=== PATIENT | female | born 1990 | race Caucasian/White ===

== ENCOUNTER 2022-09-27 09:57 | Outpatient (OUT) | payer BC, SELFPAY ==
[2022-09-27 10:17] LABS: Basophils Percent Auto 0.4 % (0.2-2.0); Eosinophils Absolute Auto 0.3 10^3/uL (0.0-0.7); Eosinophils Percent Auto 3.6 % (0.9-7.0); Hematocrit 40.8 % (36.0-48.0); Hemoglobin 13.3 g/dL (12.0-16.0); Immature Granulocytes Abs Auto 0.05 10^3/uL (0.00-0.03); Immature Granulocytes Pct Auto 0.5 % (0.0-0.5); Lymphocytes Absolute Auto 2.6 10^3/uL (1.2-3.8); Lymphocytes Percent Auto 27.5 % (20.5-60.0); Mean Corpuscular HGB Conc 32.6 g/dL (29.9-35.2); Mean Corpuscular Hemoglobin 27.9 pg (26.7-34.0); Mean Corpuscular Volume 85.5 fL (81.0-99.0); Mean Platelet Volume 9.5 fL (9.5-13.5); Monocytes Absolute Auto 0.8 10^3/uL (0.3-0.8); Monocytes Percent Auto 8.1 % (1.7-12.0); Neutrophils Absolute Auto 5.7 10^3/uL (1.4-6.5); Neutrophils Percent Auto 59.9 % (43.0-75.0); Platelet Count 357 10^3/uL (150-450); Red Blood Count 4.77 10^6/uL (4.20-5.40); Red Cell Distribution Width 13.2 % (11.0-15.0); White Blood Count 9.5 10^3/uL (4.0-11.0)
[2022-09-27 10:25] LABS: Estimated Average Glucose 117 mg/dL; Glycohemoglobin A1C 5.7 % (4.5-6.2)
[2022-09-27 10:40] LABS: Anion Gap 12.3; Aspartate Amino Transferase 10 U/L (15-37); BUN Creatinine Ratio 16.9; Bilirubin Total 0.4 mg/dL (0.2-1.0); Carbon Dioxide 27.7 mmol/L (21.0-32.0); Chloride 102 mmol/L (98-107); Estimated GFR (African America >60 (>=60); Estimated GFR (Non-African Ame >60 (>=60); Glucose 95 mg/dL (74-106); Sodium 138 mmol/L (136-145)
[2022-09-27 10:41] LABS: Alanine Aminotransferase 23 U/L (14-59); Albumin Level 3.7 g/dL (3.4-5.0); Alkaline Phosphatase 113 U/L (46-116); Chol HDL Ratio 2.8; Cholesterol 199 mg/dL (<=200); Globulin 3.7 g/dL; HDL Cholesterol 70 mg/dL (40-60); Thyroid Stimulating Hormone 1.026 uIU/mL (0.358-3.740); Total Protein 7.4 g/dL (6.4-8.2); Triglycerides 64 mg/dL (<=150); VLDL CHOLESTEROL 12.8 mg/dL
== END 2022-09-27 09:58 | disposition home or self-care (01) ==
LOC: LAB 09:57
PROVIDERS: PCP Family Medicine; Visit Provider Family Medicine
DX: Z00.00 Encounter for general adult medical examination without abnormal findings (principal)
CPT/HCPCS: 36415; 80053; 80061; 83036; 84443; 85025

== ENCOUNTER 2022-12-27 08:00 | Outpatient (OUT) | payer BC, SELFPAY ==
[2022-12-27] MEDS: COVID VAC 23-24(12UP)MODERNA/PF 50 MCG/0.5 ML VIAL IM (14:30)
== END 2022-12-27 08:01 | disposition home or self-care (01) ==
LOC: VACCLI 02-15 09:20
PROVIDERS: PCP Family Medicine; Visit Provider Family Medicine
DX: Z23 Encounter for immunization (principal)
CPT/HCPCS: 90471; 91322

== ENCOUNTER 2023-02-03 23:36 | Emergency (ER) | payer BC, SELFPAY ==
[2023-02-03 23:41] VITALS: BP 126/91; PULSE 105; RESP 16; TEMP 36.6; O2SAT 95; BMI 40.5
[2023-02-03 23:54] LABS: Clarity Urine CLEAR (CLEAR); Color Urine DK. ORANGE (YELLOW); Specific Gravity Urine >=1.030 (1.005-1.025)
[2023-02-03 23:59] LABS: Bilirubin Urine COLOR INTERFERENCE (NEGATIVE); Blood Urine COLOR INTERFERENCE (NEGATIVE); Glucose Urine UA COLOR INTERFERENCE mg/dL (NEGATIVE); Ketones Urine COLOR INTERFERENCE mg/dL (NEGATIVE); Leukocyte Esterase Urine COLOR INTERFERENCE (NEGATIVE); Nitrite Urine COLOR INTERFERENCE (NEGATIVE); Protein Urine COLOR INTERFERENCE mg/dL (NEG/TRACE); Urine Microscopic Indicated YES; Urobilinogen Urine COLOR INTERFERENCE EU/dL (0.2-1.0); pH Urine COLOR INTERFERENCE (5.0-9.0)
[2023-02-04 00:02] LABS: Bacteria Urine MODERATE #/HPF (NONE SEEN); Cast Seen? NONE SEEN #/LPF (NONE SEEN); Crystals Seen? None Seen #/HPF (None Seen); Mucus Urine NONE SEEN (NONE SEEN); RBC Urine >100 #/HPF (0-2); Squamous Epithelial Cell Urine FEW #/LPF (NONE/RARE)
[2023-02-04 00:03] LABS: Urine Culture Indicated YES
--- NOTE | 2023-02-04 00:22 | ED_ITS ---
HPI - Female Genitourinary General Chief complaint: Urogenital-Female Stated complaint: BLOOD IN URINE Time Seen by Provider: 02/03/23 23:59 Source: patient Mode of arrival: walk-in Limitations: no limitations History of Present Illness HPI Narrative: patient presents complaining of suprapubic pressure pain that started today. has dysuria and urgency. Past history of UTI for which she states she takes AZO. Took AZO today along with motrin and still has discomfort. No fever , nausea or flank pain. MD elicited complaint: Reports dysuria Related Data Allergies Allergy/AdvReac Type Severity Reaction Status Date / Time aspirin Allergy Severe Swelling Verified 02/03/23 23:47 of Lip/Tongue/Throat Review of Systems ROS Status of ROS 10 or more systems reviewed and unremarkable except as noted in history and below Exam Constitutional Vital Signs, click to edit/add: Last Vital Signs Temp 97.9 F 02/03/23 23:41 Pulse 105 H 02/03/23 23:41 Resp 16 02/03/23 23:41 BP 126/91 02/03/23 23:41 Pulse Ox 95 02/03/23 23:41 O2 Del Method Room Air 02/03/23 23:41 Common normals: no apparent distress, oriented x3, no limitations, healthy appearing, alert and well nourished [facility] Common normals: normocephalic and head/scalp atraumatic Respiratory Common normals: normal respiratory effort, no retractions, no use of accessory muscles and clear to auscultation bilaterally Cardio Common normals: regular rate, regular rhythm, S1 normal heart sound and S2 normal heart sound GI Other: suprapubic tenderness. no guarding Extremity Common normals: normal to inspection and full ROM Neuro Common normals: oriented x3, CN's II-XII intact bilaterally, moves all extremities, no focal motor deficits and no sensory deficits noted Psych Appearance: grossly normal Course Vital Signs Vital signs: Vital Signs Temperature 97.9 F 02/03/23 23:41 Pulse Rate 105 H 02/03/23 23:41 Respiratory Rate 16 02/03/23 23:41 Blood Pressure 126/91 02/03/23 23:41 Pulse Oximetry 95 02/03/23 23:41 Oxygen Delivery Method Room Air 02/03/23 23:41 Temperature 97.9 F 02/03/23 23:41 Pulse Rate 105 H 02/03/23 23:41 Respiratory Rate 16 02/03/23 23:41 Blood Pressure 126/91 02/03/23 23:41 Pulse Oximetry 95 02/03/23 23:41 Oxygen Delivery Method Room Air 02/03/23 23:41 MDM - Female Genitourinary MDM Narrative Medical decision making narrative: presents with symptoms of UTI manifested by urgency, dysuria. Urine dip results distorted as she has been taking AZO. Urine cx ordered. She is afebrile. Given dose of bactrim ds and norco for pain. Discharged home to follow up with her family doctor Lab Data Labs: Lab Results 02/03/23 Range/Units 22:45 Urine Color Dk. orange (YELLOW) Urine Clarity Clear (CLEAR) Urine pH Color interference A (5.0-9.0) Ur Specific [place] >=1.030 A (1.005-1.025) Urine Protein Color interference A (NEG/TRACE) mg/dL Urine Glucose (UA) Color interference A (NEGATIVE) mg/dL Urine Ketones Color interference A (NEGATIVE) mg/dL Urine Occult Blood Color interference A (NEGATIVE) Urine Nitrite Color interference A (NEGATIVE) Urine Bilirubin Color interference A (NEGATIVE) Urine Urobilinogen Color interference A (0.2-1.0) EU/dL Ur Leukocyte Esterase Color interference A (NEGATIVE) Urine RBC >100 A (0-2) #/HPF Urine WBC 5-10 A (NONE SEEN) #/HPF Ur Squamous Epith Cells Few A (NONE/RARE) #/LPF Urine Crystals None seen (None Seen) #/HPF Urine Bacteria Moderate A (NONE SEEN) #/HPF Urine Casts None seen (NONE SEEN) #/LPF Urine Mucus None seen (NONE SEEN) Ur Culture Indicated? Yes Discharge Plan Discharge Chief Complaint: Urogenital-Female Clinical Impression: Urinary tract infection Patient Disposition: Home, Self-Care Instructions: Urinary Tract Infection in Older Adults (ED) Stand Alone Forms: Portal Instructions Referrals: TOM WHYTE [Primary Care Provider] - 1 week
[2023-02-04] MEDS: SULFAMETHOXAZOLE/TRIMETHOPRIM 800-160 MG TABLET 1 TAB PO (00:35)
[2023-02-04] MEDS: HYDROCODONE/ACET 5-325 MG TABLET 2 TAB PO (00:35)
== END 2023-02-04 00:42 | disposition home or self-care (01) ==
PROVIDERS: Emergency Provider Internal Medicine; PCP Family Medicine
DX: N39.0 Urinary tract infection, site not specified (principal); Z87.440 Personal history of urinary (tract) infections
CPT/HCPCS: 81001; 87086; 99283

== ENCOUNTER 2023-11-01 18:13 | Emergency (ER) | payer SELFPAY ==
[2023-11-01 18:16] VITALS: BP 152/94; PULSE 104; TEMP 36.8; O2SAT 94; BMI 42.8
--- OUTSIDE RECORDS SUMMARY | 2023-11-01 18:21 | XMS_ITS | CCD ---
Author Organization [facility] Care Team Providers Care Motor Teacher Name Role Phone Traci Man Primary Care Physician PJ BAE Consulting Unavailable ROSS, [facility] Primary Care Unavailable PJ BAE Attending Unavailable PJ BAE Admitting Unavailable KARASIK ., DR TO Consulting Unavailabl e ROSS, [facility] Care Unavailable KARASIK ., DR TO Attending Unavailabl e KARASIK ., DR TO Admitting Unavailabl e REBECCA, DOMINGO Consulting Unavailable TOM VASQUES Consulting Unavailable KARASIK ., DR TO [facility]ing [facility] KARASIK ., DR TO Attending Unavailabl e KARASIK ., DR TO Admitting Unavailabl e KARASIK ., DR TO Consulting [facility] Un[facility] KARASIK ., DR TO Attending Unavailabl e KARASIK ., DR TO Admitting Unavailabl e NELSON, GRETCHEN Consulting Unavailable SARAVANAN, DR TIFFANIE Kendall Consulting Unavailable NIA MORROW Attending Unavailable NIA MORROW Admitting Unavailable PATO, [facility] Primary Care Unavailable NIA MORROW Consulting Unavailable WENDY ODOM Consulting Unavailable ALFREDO, DR MARYELLEN Kendall Attending Unavailable ALFREDO, DR MARYELLEN Kendall Admitting Unavailable [facility] Primary Care Unavailable KORY, DR JAZMINE Sumner Consulting Unavaildonovan HORN, DR JAZMINE Sumner Attending Unavailabl kyrie HORN, DR JAZMINE Sumner Admitting Unavailabl e ROSS, [facility] Care Unavailable SARAVANAN, DR TIFFANIE Kendall Consulting Unavailable SARAVANAN, DR TIFFANIE Kendall Consulting Unavailable JESSE SPEARS Attending Unavailable AUSTIN ., JESSE Admitting Unavailable [facility] Primary Care Unavailable HAYDER WRIGHT Consulting Unavailable AUSTIN ., JESSE Consulting Unavailable MCKENZIE MADRID Consulting Unavailable KORY, DR JAZMINE Sumner Attending Unavailabl e REINECK, DR JAZMINE Sumner Admitting Unavailabl e REINECK, DR JAZMINE Sumner Consulting Unavailabl e ROSS, TOM JONAH Primary Care Unavailable PIOTR HERMAN Consulting Unavailable HOY ., DR CRUZ Consulting Unavailable ROSS, TOM JONAH Primary Care Unavailable HOY ., DR CRUZ Attending Unavailable HOY ., DR CRUZ Admitting Unavailable KARASIK ., DR TO Consulting Unavailabl e ROSS, TOM JONAH Primary Care Unavailable KARASIK ., DR TO Attending Unavailabl e KARASIK ., DR TO Admitting Unavailabl e ROSS, TOM JONAH Consulting Unavailable ROSS, TOM JONAH Primary Care Unavailable ROSS, TOM JONAH Attending Unavailable ROSS, TOM JONAH Admitting Unavailable Ross, Tom E. Primary Care Physician Kathryn Garland Attending Unavailable Gill, Kathryn Mata Attending Unavailable Gill, Kathryn Mata Attending Unavailable Ross, Tom E. Attending Unavailable Ross, Tom E. Attending Unavailable Gill, Kathryn Mata Attending Unavailable Gill, Kathryn Mata Attending Unavailable Ross, Tom E. Attending Unavailable Timmis, Traci H Attending Unavailable Timmis, Traci H Referring Unavailable Timmis, Traci H Admitting Unavailable Timmis, Traci H Admitting Unavailable Timmis, Traci H Attending Unavailable Timmis, Rtaci H Referring Unavailable Gill, Kathryn L Admitting Unavailable Gill, Kathryn L Attending Unavailable Timmis, Traci H Admitting Unavailable Timmis, Traci H Attending Unavailable Timmis, Traci H Referring Unavailable Allergies Allergy Classification Reported Allergen(s) Allergy Type Date of Onset Reaction(s) Facility (5 sources) Aspirin; Translations: [aspirin] Drug Allergy 3 Anaphylaxis (disorder) [facility] (1 source) Aspirin Drug Allergy 5 [facility] (1 source) tomato allergenic extract Drug Allergy [facility] Medications Current Medications Medication Drug Class(es) Dates Sig (Normalized) Sig (Original) 0.5 ML semaglutide 0.5 MG/ML Auto-Injector (1 source) Start: 06-28-2021 End: 07-26-2021 inject 0.25 mg by subcutaneous injection every week Wegovy (0.25 mg dose) subcutaneous solution 0.25 mg, SubCutaneous, qWeek, X 4 week(s), # 4 EA, Refills(s) 0, Pharmacy: [facility]/pharmacy #[id number], 175, cm, 06/28/21 16:37:00 EDT, Height/Length Dosing, 127.5, kg, 06/28/21 16:37:00 EDT, Weight Dosing Start Date: 06/28/21 Stop Date: 07/26/21 Status: Ordered albuterol 0.83 mg/ml inhalation solution (2 sources) beta2-Adrenergic Agonist Start: 06-12-2022 take 2.5 mg by inhalation every six hours as needed albuterol 0.083% Inh Negrita 3 mL 2.5 mg, 3 mL, Inhalation, q6hr, 100 EA, Refill(s) 12, [facility]. Q6H and PRN, [facility]/pharmacy #[id number], 175, cm, 06/12/22 14:02:00 EDT, Height/Length Dosing, 115.2, kg, 06/12/22 14:02:00 EDT, Weight Dosing Start Date: 06/12/22 Status: Ordered Albuterol (Eqv-ProAir HFA) 90 mcg/inh inhalation aerosol (4 sources) Start: 09-25-2022 take 2 puff(s) by inhalation every six hours as needed for wheezing, then take 2 puff(s) by inhalation four times daily as needed for wheezing Albuterol (Eqv-ProAir HFA) 90 mcg/inh inhalation aerosol 2 puff(s), Inhalation, q6hr, 18 gm, Refill(s) 3, INHALE 2 PUFFS BY MOUTH 4 TIMES A DAY NEEDED FOR SHORTNESS OF BREATH OR WHEEZING, [facility]/pharmacy #[id number], 172, cm, 09/25/22 9:54:00 EDT, Height/Length Dosing, 125.4, kg, 09/25/22 9:50:00 EDT, Weight Dosing Start Date: 09/25/22 Status: Ordered Start: 06-28-2021 take 2 puff(s) by mo uth four times daily as needed for wheezing Albuterol (Eqv-ProAir HFA) 90 mcg/inh inhalation aerosol INHALE 2 PUFFS BY MOUTH 4 TIMES A DAY NEEDED FOR SHORTNESS OF BREATH OR WHEEZING Start Date: 06/28/21 Status: Ordered 12 hr cetirizine hydrochloride 5 mg / pseudoephedrine hydrochloride 120 mg extended release oral tablet (2 sources) alpha-Adrenergic Agonist, Histamine-1 Receptor Antagonist Start: 06-12-2022 Zyrtec-D oral tablet, extended release 1 tab(s), Oral, q24hr, 30 tab(s), Refill(s) 0, Allergy symptoms Start Date: 06/12/22 Status: Ordered cyclobenzaprine hydrochloride 10 mg oral tablet (2 sources) Muscle Relaxant Start: 12-28-2021 take 1 tablet by mouth three times daily as needed for muscle spasms cyclobenzaprine 10 mg Tab 10 mg = 1 tab(s), Oral, TID, PRN for spasm, # 30 tab(s), Refills(s) 0, Pharmacy: [facility]/pharmacy #[id number], 175, cm, 12/28/21 16:04:00 EDT, Height/Length Dosing, 113.9, kg, 12/28/21 16:04:00 EDT, Weight Dosing Start Date: 12/28/21 Status: Ordered Start: 06-28-2021 End: 07-28-2021 take 1 tablet by mouth once daily as needed for muscle spasms cyclobenzaprine 10 mg Tab 10 mg = 1 tab(s), Oral, Daily, PRN for spasm, X 30 day(s), # 30 tab(s), Refills(s) 0, Pharmacy: [facility]/pharmacy #[id number], 175, cm, 06/28/21 16:37:00 EDT, Height/Length Dosing, 127.5, kg, 06/28/21 16:37:00 EDT, Weight Dosing Start Date: 06/28/21 Stop Date: 07/28/21 Status: Ordered 03/23 oral tablet (1 source) Start: 06-28-2021 take 1 tablet by mouth once daily, then take 1 tablet by mouth once daily 03/23 oral tablet 1 tab(s), Oral, Daily, TAKE 1 TABLET BY MOUTH EVERY DAY Start Date: 06/28/21 Status: Ordered 12 hr loratadine 5 mg / pseudoephedrine sulfate 120 mg extended release oral tablet (2 sources) alpha-Adrenergi c Agonist Start: 06-28-2021 take 1 tablet by mouth every twelve hours Claritin-D oral tablet, extended release 1 tab(s), Oral, q12hr, Refill(s) 0 Start Date: 06/28/21 Status: Ordered omeprazole 40 mg delayed release oral capsule (1 source) Proton Pump Inhibitor Start: 12-28-2021 take 1 capsule by mouth once daily omeprazole 40 mg Cap-DR 40 mg = 1 cap(s), Oral, Daily, # 90 cap(s), Refills(s) 0, [id number], cm, 12/28/21 16:04:00 EDT, Height/Length Dosing, 113.9, kg, 12/28/21 16:04:00 EDT, Weight Dosing Start Date: 12/28/21 Status: Ordered Ondansetron (1 source) Serotonin-3 Receptor Antagonist Start: 06-28-2021 ondansetron 4 mg Dis Tab DISSOLVE 1 TABLET ON THE TONGUE EVERY 6 HOURS NEEDED FOR NAUSEA AND VOMITING Start Date: 06/28/21 Status: Ordered 0.25 mg, 0.5 mg dose 1.5 ml semaglutide 1.34 mg/ml pen injector (1 source) Start: 12-28-2021 inject 0.5 mg by subcutaneous injection every week semaglutide 2 mg/1.5 mL (0.25 mg or 0.5 mg dose) subcutaneous solution 0.5 mg, SubCutaneous, qWeek, 4 EA, Refill(s) 3, [facility]/pharmacy #[id number], 175, cm, 12/28/21 16:04:00 EDT, Height/Length Dosing, 113.9, kg, 12/28/21 16:04:00 EDT, Weight Dosing Start Date: 12/28/21 Status: Ordered Zofran ODT 4 mg Tab-Dis (3 sources) Start: 09-25-2022 take 1 tablet by mouth once Zofran ODT 4 mg Tab-Dis 4 mg = 1 tab(s), Oral, Once, # 30 tab(s), Refills(s) 0, Pharmacy: [facility]/pharmacy #[id number], 172, cm, 09/25/22 9:54:00 EDT, Height/Length Dosing, 125.4, kg, 09/25/22 9:50:00 EDT, Weight Dosing Start Date: 09/25/22 Status: Ordered Start: 12-28-2021 take 1 tablet by mouth once Zo susana ODT 4 mg Tab-Dis 4 mg = 1 tab(s), Oral, Once, # 10 tab(s), Refills(s) 0, Pharmacy: [facility]/pharmacy #[id number], 175, cm, 12/28/21 16:04:00 EDT, Height/Length Dosing, 113.9, kg, 12/28/21 16:04:00 EDT, Weight Dosing Start Date: 12/28/21 Status: Ordered Problems Active Problems Problem Classification Problem Date Documented Date Episodic/Chronic Anxiety disorders (1 source) Anxiety disorder, unspecified; Translations: [ANXIETY DISORDER UNSPECIFIED] Onset: 05-17-2022 Chronic Asthma (1 source) Unspecified asthma, uncomplicated; Translations: [UNSPECIFIED ASTHMA UNCOMPLICATED] Onset: 05-17-2022 Chronic E Codes: Fall (1 source) Fall (on) (from) unspecified stairs and steps, initial encounter; Translations: [FALL ON FROM UNS STAIRS STEPS INIT] Onset: 05-17-2022 Episodic Esophageal disorders (4 sources) Gastroesophageal reflux disease without esophagitis; Translations: [Gastro-esophageal reflux disease without esophagitis] Onset: 12-28-2021 Chronic Mood disorders (1 source) Mood disorders; Translations: [DEPRESSION UNSPECIFIED] Onset: 05-17-2022 Mycoses (2 sources) Opportunistic mycosis 08-21-2022 Episodic Osteoarthritis (1 source) Unspecified osteoarthritis, unspecified site; Translations: [UNSPECIFIED OSTEOARTHRITIS UNS SITE] Onset: 05-17-2022 Chronic Other non-traumatic joint disorders (3 sources) Pain in right ankle and joints of right foot; Translations: [PAIN IN RIGHT ANKLE] Onset: 05-16-2022 Episodic Other nutritional; endocrine; and metabolic disorders (1 source) Body mass index 40+ - severely obese; Translations: [Body mass index (BMI) 40.0-44.9, adult] Onset: 06-28-2021 Chronic Other nutritional; endocrine; and metabolic disorders (4 sources) Calorie overload 06-28-2021 Chronic Other nutritional; endocrine; and metabolic disorders (1 source) Obese class II; Translations: [Body mass index (BMI) 37.0-37.9, adult] Onset: 12-28-2021 Chronic Other nutritional; endocrine; and metabolic disorders (2 sources) Excessive eating - polyphagia; Translations: [Polyphagia] Onset: 06-28-2021 Episodic Other upper respiratory disease (1 source) Hypertrophy of nasal turbinates; Translations: [Hypertrophy of nasal turbinates] Onset: 11-08-2022 Episodic Other upper respiratory infections (3 sources) Chronic frontal sinusitis; Translations: [Chronic frontal sinusitis] Onset: 11-08-2022 2022 Chronic Residual codes; unclassified (1 source) Tobacco user; Translations: [Tobacco use] Onset: 06-28-2021 Episodic Residual codes; unclassified (1 source) Problem situation; Translations: [Other problems related to lifestyle] Onset: 12-28-2021 Episodic Spondylosis; intervertebral disc disorders; other back problems (6 sources) Backache; Translations: [Dorsalgia, unspecified] Onset: 06-28-2021 Episodic Sprains and strains (1 source) Sprain of unspecified ligament of right ankle, initial encounter; Translations: [SPRAIN UNS LIGAMENT RT ANKLE INIT] Onset: 05-17-2022 Episodic Superficial injury; contusion (1 source) Contusion of right front wall of thorax, initial encounter; Translations: [CONTUS RT FRONT WALL THORAX INITIAL] Onset: 05-17-2022 Episodic Unclassified (4 sources) Patient encounter status 06-28-2021 Unclassified (4 sources) CONTACT W/AND (SUSP) EXPOS COVID-19; Translations: [CONTACT W/AND (SUSP) EXPOS COVID-19] Onset: 11-09-2021 Urinary tract infections (2 sources) Urinary tract infectious disease 08-21-2022 Episodic Past or Other Problems Problem Classification Problem Date Documented Da te Episodic/Chronic Abdominal pain (7 sources) Unspecified abdominal pain; Translations: [Upper abdominal pain, unspecified] Onset: 06-19-2021 Episodic Contraceptive and procreative management (5 sources) Encounter for sterilization; Translations: [ENCOUNTER FOR STERILIZATION] Onset: 11-28-2021 Episodic Deficiency and other anemia (1 source) Anemia, unspecified; Translations: [ANEMIA UNSPECIFIED] Onset: 12-11-2021 Episodic Genitourinary symptoms and ill-defined conditions (1 source) Personal history of urinary (tract) infections; Translations: [PERS HX URINARY TRACT INFECTIONS] Onset: 10-24-2021 Episodic Other aftercare (1 source) Other jail (current) drug therapy; Translations: [OTH MUSEUM SPECIALIST CURRENT DRUG THERAPY] Onset: 10-24-2021 Episodic Other aftercare (1 source) advisor to command in combat (current) use of hormonal contraceptives; Translations: [MUSEUM SPECIALIST HORMONAL CONTRACEPTIVES] Onset: 09-06-2021 Episodic Other connective tissue disease (1 source) Patellar tendinitis, right knee; Translations: [PATELLAR TENDINITIS RIGHT KNEE] Onset: 02-02-2022 Episodic Other nervous system disorders (4 sources) Paresthesia of skin; Translations: [PARESTHESIA OF SKIN] Onset: 10-23-2021 Episodic Other non-traumatic joint disorders (3 sources) Pain in right knee; Translations: [PAIN IN RIGHT KNEE] Onset: 01-31-2022 Episodic Other screening for suspected conditions (not mental disorders or infectious disease) (4 sources) Encounter for screening for malignant neoplasm of cervix; Translations: [ENC SCREENING MALIG NEOPLASM CERV] Onset: 06-13-2021 Episodic Screening and history of mental health and substance abuse codes (1 source) Personal history of nicotine dependence; Translations: [PERSONAL HISTORY OF NICOTINE DEPEND] Onset: 12-11-2021 Episodic Unclassified (1 source) CONTACT W/AND (SUSP) EXPOS COVID-19; Translations: [CONTACT W/AND (SUSP) EXPOS COVID-19] Onset: 11-07-2021 Results Test Name Value Interpretation Reference Range Facility Ambulatory Visit Summaryon 0 05-22-2023 Ambulatory Visit Summary CAROLINE DAVIS :1990 Visit Date:05/22/2023 Ambulatory Visit Instructions Your Diagnosis Non-smoker Anxiety BMI 40.0-44.9, adult Depression Former smoker Migraine Your Care Team Attending Physician - Kathryn Fall Primary Care Physician - Kathryn Fall This Is Your Medications List albuterol (Albuterol (Eqv-ProAir HFA) 90 mcg/inh inhalation aerosol) cetirizine-pseudoephe drine (Zyrtec-D oral tablet, extended release) escitalopram (escitalopram 5 mg oral tablet) ondansetron (Zofran ODT 4 mg Tab-Dis) ubrogepant (Ubrelvy 100 mg oral tablet) Procedures Performed Ethmoidectomy; intranasal, total (11/08/2022), Bilateral segmental tubal excision and ligation by endoscopy (12/04/2021), Salpingectomy (12/04/2021), section (07/20/2015), Lumpectomy of left breast (2010), Tonsillectomy (2002). Discharge Vitals Heart Rate (Peripheral) 78 Respiratory Rate 18 Blood Pressure 112/84 Height 175.0 cm Height 69 in Weight 132.0 kg Weight 290.4 lb BMI 43.1 Medications What How Much When Why Instructions New albuterol (Albuterol (Eqv-ProAir HFA) 90 mcg/ inh inhalation aerosol) 2 Puffs Inhalation Every 6 hours Refills: 3 INHALE 2 PUFFS BY MOUTH 4 TIMES A DAY NEEDED FOR SHORTNESS OF BREATH OR WHEEZING Pickup at [facility]/pharmacy #[id number] New escitalopram (escitalopram 5 mg oral tablet) 1 Tablets By Mouth Every day [id number] New ondansetron (Zofran ODT 4 mg Tab-Dis) 1 Tablets By Mouth Once allow tablet to dissolve on tongue Pickup at [facility]/pharmacy #[id number] New ubrogepant (Ubrelvy 100 mg oral tablet) 1 Tablets By Mouth Once Anxiety Depression Migraine BMI 40.0-44.9, adult Former smoker Refills: 2 may repeat dose in 2 hours if needed Pickup at [facility]/pharmacy #[id number] Unchanged cetirizine-pseudoephe drine (Zyrtec-D oral tablet, extended release) 1 Tablets By Mouth Every 24 hours Pharmacy Information [facility]/pharmacy #[id number]: [address], [place] [id number] [phone] Allergies aspirin (Anaphylactic reaction) Problems Ongoing - Any problem that you are currently receiving treatment for. Antibiotic-induced yeast infection Anxiety Chronic bilateral low back pain without sciatica Chronic frontal sinusitis COVID-19 virus detected Depression Excessive dietary caloric intake GERD without esophagitis Migraine Urinary tract infection Wellness examination Patient Survey You may receive a survey via text or e-mail asking about your office visit. Please share your experience with us by completing your survey. We appreciate your feedback and thank you for choosing us for your care. [facility] Medicine Office/Clini c Noteon 05-22-2023 Family Medicine Office/Clinic Note HPI Staff Caroline is a 32 year old female presenting for 6 week follow up BETH: 04/10/23 started Lexapro 10mg PHQ: 24 STEPHEN:15, counseling encouraged Follow up for Mental Status: Medication adherence- Yes, takes medication as prescribed Suicidal thoughts-Not at this time Most recent STEPHEN: 5 Most recent PHQ: 11 pt states has been taking half tablet due to the 10mg was making her have brain fog and just felt off. Pt states she will feel tired sometimes and started taking it at night. Pt has noticed she has been more thirsty lately. pt states she hasn't started counseling History of Present Illness pt presents today for follow up on anxiety and depression Review of Systems PHQ Score Initial Depression Screen Score: 3 SCORE Physical Exam Vitals & Measurements HR: 78(Peripheral) RR: 18 BP: 112/84 SpO2: 98% HT: 69 in HT: 175.0 cm WT: 132.0 kg WT: 290.4 lb BMI: 43.1 General: alert, no acute distress ENMT: oral mucosa moist, no pharyngeal erythema or exudate Cardiovascular: regular rate and rhythm, normal peripheral perfusion Respiratory: Lungs CTA, respirations non labored Extremities: no deformity, no trauma Neurological: oriented x 4, LOC appropriate for age, CN II-XII intact, motor strength equal & normal bilaterally, speech normal Assessment/Plan 1. Depression (F32.A: Depression, unspecified) PQH9 much improved. pt is currently taking 5mg at bedtime. will send refill Ordered: escitalopram, 10 mg = 1 tab(s), Oral, Daily, # 30 tab(s), Refills(s) 1, Pharmacy: [facility]/pharmacy #[id number], 175, cm, 04/10/23 9:29:00 EST, Height/Length Dosing, 132, kg, 04/10/23 9:29:00 EST, Weight Dosing ubrogepant, 100 mg = 1 tab(s), Oral, Once, may repeat dose in 2 hours if needed, # 10 tab(s), Refills(s) 1, Pharmacy: [facility]/pharmacy #[id number], 175, cm, 04/10/23 9:29:00 EST, Height/Length Dosing, 132, kg, 04/10/23 9:29:00 EST, Weight Dosing ubrogepant, 100 mg = 1 tab(s), Oral, Once, may repeat dose in 2 hours if needed, # 2 tab(s), Refills(s) 1, [id number] 175, cm, 04/10/23 9:29:00 EST, Height/Length Dosing, 132, kg, 04/10/23 9:29:00 EST, Weight Dosing ubrogepant, 100 mg = 1 tab(s), Oral, Once, may repeat dose in 2 hours if needed, # 1 tab(s), Refills(s) 2, Pharmacy: [facility]/pharmacy #[id number], 175, cm, 05/22/23 10:10:00 EDT, Height/Length Dosing, 132, kg, 05/22/23 10:10:00 EDT, Weight Dosing Anxiety (F41.9: Anxiety disorder, unspecified) STEPHEN much improed Ordered: escitalopram, 10 mg = 1 tab(s), Oral, Daily, # 30 tab(s), Refills(s) 1, [id number], 175, cm, 04/10/23 9:29:00 EST, Height/Length Dosing, 132, kg, 04/10/23 9:29:00 EST, Weight Dosing ubrogepant, 100 mg = 1 tab(s), Oral, Once, may repeat dose in 2 hours if needed, # 10 tab(s), Refills(s) 1, Pharmacy: [facility]/pharmacy #[id number], 175, cm, 04/10/23 9:29:00 EST, Height/Length Dosing, 132, kg, 04/10/23 9:29:00 EST, Weight Dosing ubrogepant, 100 mg = 1 tab(s), Oral, Once, may repeat dose in 2 hours if needed, # 2 tab(s), Refills(s) 1, Pharmacy: [facility]/pharmacy #[id number], 175, cm, 04/10/23 9:29:00 EST, Height/Length Dosing, 132, kg, 04/10/23 9:29:00 EST, Weight Dosing ubrogepant, 100 mg = 1 tab(s), Oral, Once, may repeat dose in 2 hours if needed, # 1 tab(s), Refills(s) 2, [id number] 175, cm, 05/22/23 10:10:00 EDT, Height/Length Dosing, 132, kg, 05/22/23 10:10:00 EDT, Weight Dosing BMI 40.0-44.9, adult (Z68.41: Body mass index [BMI] 40.0-44.9, adult) bmi education complete Ordered: escitalopram, 10 mg = 1 tab(s), Oral, Daily, # 30 tab(s), Refills(s) 1, [id number], 175, cm, 04/10/23 9:29:00 EST, Height/Length Dosing, 132, kg, 04/10/23 9:29:00 EST, Weight Dosing ubrogepant, 100 mg = 1 tab(s), Oral, Once, may repeat dose in 2 hours if needed, # 10 tab(s), Refills(s) 1, [id number], 175, cm, 04/10/23 9:29:00 EST, Height/Length Dosing, 132, kg, 04/10/23 9:29:00 EST, Weight Dosing ubrogepant, 100 mg = 1 tab(s), Oral, Once, may repeat dose in 2 hours if needed, # 2 tab(s), Refills(s) 1, [id number], 175, cm, 04/10/23 9:29:00 EST, Height/Length Dosing, 132, kg, 04/10/23 9:29:00 EST, Weight Dosing ubrogepant, 100 mg = 1 tab(s), Oral, Once, may repeat dose in 2 hours if needed, # 1 tab(s), Refills(s) 2, [id number], 175, cm, 05/22/23 10:10:00 EDT, Height/Length Dosing, 132, kg, 05/22/23 10:10:00 EDT, Weight Dosing Former smoker (Z87.891: Personal history of nicotine dependence) continue not smoking Ordered: escitalopram, 10 mg = 1 tab(s), Oral, Daily, # 30 tab(s), Refills(s) 1, Pharmacy: [facility]/pharmacy #[id number], 175, cm, 04/10/23 9:29:00 EST, Height/Length Dosing, 132, kg, 04/10/23 9:29:00 EST, Weight Dosing ubrogepant, 100 mg = 1 tab(s), Oral, Once, may repeat dose in 2 hours if needed, # 10 tab(s), Refills(s) 1, Pharmacy: [facility]/pharmacy #[id number], 175, cm, 04/10/23 9:29:00 EST, Height/Length Dosing, 132, kg, 04/10/23 9:29:00 EST, Weight Dosing ubrogepant, 100 mg = 1 tab(s), Oral, Once, may repeat dose in 2 hours (more content not included)... [facility] Comment on above: Result Comment: Elec tronically Signed By: Kathryn Fall\.br\Date and Time Signed: 05/22/23 11:09 EDT Pre-Certification Formon Pre-Certification Form [id number] [email or web address] [facility] Interdisciplinary Note - Soc ial Workeron 04-16-2023 Interdisciplinary Note - Watch Dial Printer This SW made a tc to patient today to follow up on her positive depression screen. Patient states that things are better since her appointment last week. She did state that she had been taking the Lexapro but it was putting her in a fog and she just wanted to sleep so she cut it to a 1/2 dose last night and explained that she was already feeling better. Patient had been informed at her appointment to cut this in half if needed. She will follow up with Kathryn Garland CNP about this at her follow up appointment in a few weeks. SW spoke to her about counseling as this had been recommended at the appointment. Patient states that time and finances are a barrier to this but that if she finds more help is needed it is something she may consider in the future. SW explained to her that there are agencies that work off a sliding fee scale that might be able to help her with a more affordable cost, and there are some that will do appointments via telehealth. She voiced understanding and will keep this in mind. She is aware that she can reach out to the office should any needs arise. SW will remain available. [facility] Ambulatory Visit Summaryon 0 04-10-2023 Ambulatory Visit Summary CAROLINE DAVIS :1990 Visit Date:04/10/2023 Ambulatory Visit Instructions Your Diagnosis Anxiety Depression Migraine BMI 40.0-44.9, adult Former smoker Your Care Team Attending Physician - Kathryn Fall Primary Care Physician - Kathryn Fall This Is Your Medications List albuterol (Albuterol (Eqv-ProAir HFA) 90 mcg/inh inhalation aerosol) albuterol (albuterol 0.083% Inh Negrita 3 mL) cetirizine-pseudoephe drine (Zyrtec-D oral tablet, extended release) escitalopram (escitalopram 10 mg Tab) ondansetron (Zofran ODT 4 mg Tab-Dis) ubrogepant (Ubrelvy 100 mg oral tablet) Procedures Performed Ethmoidectomy; intranasal, total (11/08/2022), Bilateral segmental tubal excision and ligation by endoscopy (12/04/2021), Salpingectomy (12/04/2021), section (07/20/2015), Lumpectomy of left breast (2010), Tonsillectomy (2002). Discharge Vitals Heart Rate (Peripheral) 82 Respiratory Rate 18 Blood Pressure 122/80 Height 175 cm Height 69 in Weight 132.0 kg Weight 290.4 lb BMI 43.1 What to do next Scheduled Follow-Up Appointments Saturday 10:00 AM EDT With: Kathryn Fall Where: [facility] [place] [facility] Family Medicine Office/Clini c Noteon 04-10-2023 Family Medicine Office/Clinic Note HPI Staff Caroline is a 32 year old female presenting to [facility] Establish Care: History: Any previous diagnosis: Gerd , Anxiety/Depression History of seeing any specialist: When was your last doctors visit: Last provider: Dr Whyte Any recent labs: some labs 10/15/22 STEPHEN: 15 PHQ-9: 24 Health Maintenance UTD: Colonoscopy: no Mammogram: hasn't had one. Family history mom had breast cancer. Pelvic/Pap: over 2 year ago normal Acute: Current issues/complaints: Having some issues with anxiety/depression has been on Zoloft but would get migraines and Wellbutrin did help but after taking it a while would have jerking movement and would be very irritable. History of Present Illness pt presents today with worsening anxiety and depression Review of Systems PHQ Score Initial Depression Screen Score: 5 SCORE Detailed Depression Screen Score: 19 Total Depression Screen Score: 24 ROS - Provider Constitutional: no fever, no chills, no sweats, no fatigue Respiratory: no shortness of breath, no cough, no orthopnea, no wheezing. Cardiovascular: no chest pain, no palpitations, no edema. Neurologic: no headache, no dizziness, no numbness, no weakness. Physical Exam Vitals & Measurements HR: 82(Peripheral) RR: 18 BP: 122/80 SpO2: 98% HT: 69 in HT: 175 cm WT: 132.0 kg WT: 290.4 lb BMI: 43.1 General: alert, no acute distress ENMT: oral mucosa moist, no pharyngeal erythema or exudate Cardiovascular: regular rate and rhythm, normal peripheral perfusion Respiratory: Lungs CTA, respirations non labored Extremities: no deformity, no trauma Neurological: oriented x 4, LOC appropriate for age, CN II-XII intact, motor strength equal & normal bilaterally, speech normal Assessment/Plan 1. Anxiety (F41.9: Anxiety disorder, unspecified) pt c/o worsening anxiety and depression. STEPHEN 15 PQH-9 24. has tried wellbutrin and zoloft but did not like side effects. pt has struggled with this since age 15. her best friend committed suicide when they were 15 then a few years ago another best friend over dosed. encouraged counseling. will start lexapro. RTC 6 weeks Ordered: escitalopram, 10 mg = 1 tab(s), Oral, Daily, # 30 tab(s), Refills(s) 1, Pharmacy: [facility]/pharmacy #[id number], 175, cm, 04/10/23 9:29:00 EST, Height/Length Dosing, 132, kg, 04/10/23 9:29:00 EST, Weight Dosing ubrogepant, 100 mg = 1 tab(s), Oral, Once, may repeat dose in 2 hours if needed, # 2 tab(s), Refills(s) 1, Pharmacy: [facility]/pharmacy #[id number], 175, cm, 04/10/23 9:29:00 EST, Height/Length Dosing, 132, kg, 04/10/23 9:29:00 EST, Weight Dosing 2. Depression (F32.A: Depression, unspecified) see above Ordered: escitalopram, 10 mg = 1 tab(s), Oral, Daily, # 30 tab(s), Refills(s) 1, [id number], cm, 04/10/23 9:29:00 EST, Height/Length Dosing, 132, kg, 04/10/23 9:29:00 EST, Weight Dosing ubrogepant, 100 mg = 1 tab(s), Oral, Once, may repeat dose in 2 hours if needed, # 2 tab(s), Refills(s) 1, [id number], cm, 04/10/23 9:29:00 EST, Height/Length Dosing, 132, kg, 04/10/23 9:29:00 EST, Weight Dosing 3. Migraine (G43.909: Migraine, unspecified, not intractable, without status migrainosus) ubrevly refilled Ordered: escitalopram, 10 mg = 1 tab(s), Oral, Daily, # 30 tab(s), Refills(s) 1, [id number], cm, 04/10/23 9:29:00 EST, Height/Length Dosing, 132, kg, 04/10/23 9:29:00 EST, Weight Dosing ubrogepant, 100 mg = 1 tab(s), Oral, Once, may repeat dose in 2 hours if needed, # 2 tab(s), Refills(s) 1, [id number], 175, cm, 04/10/23 9:29:00 EST, Height/Length Dosing, 132, kg, 04/10/23 9:29:00 EST, Weight Dosing 4. BMI 40.0-44.9, adult (Z68.41: Body mass index [BMI] 40.0-44.9, adult) bmi education compete Ordered: escitalopram, 10 mg = 1 tab(s), Oral, Daily, # 30 tab(s), Refills(s) 1, Pharmacy: [facility]/pharmacy #[id number], 175, cm, 04/10/23 9:29:00 EST, Height/Length Dosing, 132, kg, 04/10/23 9:29:00 EST, Weight Dosing ubrogepant, 100 mg = 1 tab(s), Oral, Once, may repeat dose in 2 hours if needed, # 2 tab(s), Refills(s) 1, [id number] 175, cm, 04/10/23 9:29:00 EST, Height/Length Dosing, 132, kg, 04/10/23 9:29:00 EST, Weight Dosing 5. Former smoker (Z87.891: Personal history of nicotine dependence) continue not smoking Ordered: escitalopram, 10 mg = 1 tab(s), Oral, Daily, # 30 tab(s), Refills(s) 1, [id number] 175, cm, 04/10/23 9:29:00 EST, Height/Length Dosing, 132, kg, 04/10/23 9:29:00 EST, Weight Dosing ubrogepant, 100 mg = 1 tab(s), Oral, Once, may repeat dose in 2 hours if needed, # 2 tab(s), Refills(s) 1, [id number] 175, cm, 04/10/23 9:29:00 EST, Height/Length Dosing, 132, kg, 04/10/23 9:29:00 EST, Weight Dosing Follow-up No qualifying data available Problem List/Past Medical History Ongoing Antibiotic-induced yeast infection Anxiety Chronic bilateral low back pain without sciatica Chronic frontal sinusitis COVID-19 virus detect (more content not included)... [facility] Comment on above: Result Comment: Elec tronically Signed By: Kathryn Fall\.br\Date and Time Signed: 04/10/23 10:43 EST Ambulatory Visit Summaryon 1 04-14-2022 Ambulatory Visit Summary GLADYSCAROLINE CAMPA Renetta :1990 Visit Date:02/11/2023 Ambulatory Visit Instructions Your Diagnosis COVID-19 virus detected Your Care Team Attending Physician - Kathryn Fall Primary Care Physician - Tom Whyte MD This Is Your Medications List albuterol (Albuterol (Eqv-ProAir HFA) 90 mcg/inh inhalation aerosol) albuterol (albuterol 0.083% Inh Negrita 3 mL) azithromycin (azithromycin 250 mg Tab) benzonatate (benzonatate 200 mg oral capsule) cetirizine-pseudoephe drine (Zyrtec-D oral tablet, extended release) methylPREDNISolone (Medrol 4 mg Tab) ondansetron (Zofran ODT 4 mg Tab-Dis) Procedures Performed Ethmoidectomy; intranasal, total (11/08/2022), Bilateral segmental tubal excision and ligation by endoscopy (12/04/2021), Salpingectomy (12/04/2021), section (07/20/2015), Lumpectomy of left breast (2010), Tonsillectomy (2002). Medications What How Much When Why Instructions New azithromycin (azithromycin 250 mg Tab) 1 Packets By Mouth As Directed COVID-19 virus detected Duration: 5 Days as directed on package labeling Pickup at [facility]/pharmacy #[id number] New benzonatate (benzonatate 200 mg oral capsule) 1 Capsules By Mouth 3 times a day COVID-19 virus detected Duration: 7 Days Pickup at [facility]/pharmacy #[id number] New methylPREDNISolone (Medrol 4 mg Tab) 1 Packets By Mouth As Directed COVID-19 virus detected Duration: 6 Days as directed on package labeling Pickup at [facility]/pharmacy #[id number] Unchanged albuterol (Albuterol (Eqv-ProAir HFA) 90 mcg/ inh inhalation aerosol) 2 Puffs Inhalation Every 6 hours INHALE 2 PUFFS BY MOUTH 4 TIMES A DAY NEEDED FOR SHORTNESS OF BREATH OR WHEEZING Unchanged albuterol (albuterol 0.083% Inh Negrita 3 mL) 3 Milliliter Inhalation Every 6 hours To the neareast box. Q6H and PRN Unchanged cetirizine-pseudoephe drine (Zyrtec-D oral tablet, extended release) 1 Tablets By Mouth Every 24 hours Unchanged ondansetron (Zofran ODT 4 mg Tab-Dis) 1 Tablets By Mouth Once Pharmacy Information [facility]/pharmacy #[id number]: [address], [place] [phone] Allergies aspirin (Anaphylactic reaction) Problems Ongoing - Any problem that you are currently receiving treatment for. Antibiotic-induced yeast infection Chronic bilateral low back pain without sciatica Chronic frontal sinusitis COVID-19 virus detected Excessive dietary caloric intake GERD without esophagitis Urinary tract infection Wellness examination Patient Survey You may receive a survey via text or e-mail asking about your office visit. Please share your experience with us by completing your survey. We appreciate your feedback and thank you for choosing us for your care. [facility] ED Note-Physicianon 02-05-20 ED Note-Physician [id number] .00TIFF [facility] Consultation Noteon 12-07-19 Consultation Note [id number] .00TIFF [facility] Operative Reporton Operative Report SURGERY DATE: 11/08/2022 PREOPERATIVE DIAGNOSIS: Chronic sinusitis and inferior turbinate hypertrophy; inferior turbinate hypertrophy POSTOPERATIVE DIAGNOSIS: Chronic sinusitis and inferior turbinate hypertrophy; inferior turbinate hypertrophy OPERATION: Bilateral image-guided axillary antrostomy and total ethmoidectomy with left frontal sinus exploration and bilateral inferior turbinate submucosal resection INDICATIONS: This 32-year-old woman presented with chronic sinusitis and nasal obstruction unresponsive to aggressive medical management. PROCEDURE: The patient identified in the Holding Area and taken back to the Operating Room where she was placed in a supine position. After induction of general endotracheal anesthesia, the table was turned, the head elevated 20 degrees and the face was draped in a sterile fashion. Afrin-soaked pledgets were placed in each side of the nose and after waiting adequate time for decongestion, the nose was copiously irrigated bilaterally. Attention was then turned to the right nose and lidocaine 1% with 1:100,000 epinephrine was injected into the sphenopalatine fossa as well as the middle turbinate and the lateral nasal wall. The same was then performed on the left. While awaiting hemostasis, the image guidance system was registered and proper functioning of the straight and curved suctions was verified as well as proper functioning of the image guided microdebrider. After waiting adequate time for hemostasis, the right nose was approached with the nasal endoscope. Curved scissors to the right was used to incise the inferior portion of the middle turbinate and it was removed with an ethmoid forcep. The posterior root of the middle turbinate was prophylactically cauterized to minimize the risk of postoperative bleeding. The uncinate process was then incised with a sickle knife and removed with an ethmoid forcep. The natural ostium of the maxillary sinus was then identified with a Ashaway seeker and opened posteriorly with a straight cutting forcep and inferiorly with side biting and back biting forceps. Then a microdebrider under direct image guidance was used to exenterate the ethmoid air cells from a posterior inferior to anterior superior fashion. Once the ethmoids were opened, the nose was irrigated and Afrin-soaked pledget placed in the surgical site. Attention was then turned to the left side of the nose and the same procedure was performed. After completing that portion of the surgery on the left side, however, the microdebrider was used to open the uncinate process more superiorly and using a 30 degree nasal endoscope, the frontal ethmoidal recess was opened and the curved suction under direct image guidance used to open the passage to the frontal sinus. Once this was accomplished, both inferior turbinates were injected with lidocaine with 1:100,000 epinephrine and after waiting adequate time for hemostasis, a stab incision was made in the anterior portion of the right inferior turbinate. A caudal elevator was used to create a tunnel along the medial surface of the turbinate bone and a 2 mm microdebrider was used to exenterate the submucosal tissues of the inferior turbinate. The right inferior turbinate was then lateralized using a long nasal speculum. Attention was then turned to the left nose and the same procedure performed. Once this was accomplished, both sides of the nose were copiously irrigated. There was found to be no significant bleeding and the patient was awakened and taken to the Recovery Room in good condition. Traci Man Jr., M.D. Dictated: 11/15/2022 [id number] Transcribed: 11/15/2022 cc:Tom Whyte M.D. [facility] Comment on above: Result Comment: Elec tronically Signed By: Magda HOUSTON, Traci Flynn\.br\Date and Time Signed: 11/22/22 09:07 EDT Consultation Noteon 11-16-19 Consultation Note [id number] .00CD:127 [facility] Progress Note-Physicianon Progress Note-Physician Patient: CAROLINE DAVIS Age: 32 years Sex: Female : 1990 Associated Diagnoses: None Author: MD Faye Ahmad F Postoperative Information Postoperative disposition: Postoperative disposition: To PACU. Optimetrix number: Optimetrix number [id number]. Anesthetic utilized: General. Health Status Allergies: Allergic Reactions (Selected) Severity Not Documented Aspirin- Anaphylactic reaction. Physical Examination VS/Measurements Pain Assessment: Controlled. General: Awake, Alert, Appropriate. Respiratory: Adequate air exchange. Cardiovascular: Stable, Normal peripheral perfusion. Neurological: Normal sensory function, Normal motor function. Assessment Anesthetic outcome No anesthetic complications noted. Adequate pain relief. able to void without difficulty, able to ambulate with assist, tolerating PO intake, no N/V. Review / Management Condition: Stable. Plan Transfer/Discharge: Transfer/Discharge Discharge when meets criteria ( To home ). [facility] Comment on above: Result Comment: Elec tronically Signed By: MD Faye Ahmad F\.br\Date and Time Signed: 11/13/22 11:44 EDT Progress Note-Physician Patient: CAROLINE DAVIS Age: 32 years Sex: Female : 1990 Associated Diagnoses: None Author: MD Faye Ahmad F Preoperative Information Time patient last ate or drank:=== (npo 8 hours) Anesthesia history: Patient history: No prior anesthesia problems. Re-evaluation prior to induction: Completed, Initial evaluation reviewed. Review of Systems Respiratory: No shortness of breath. Cardiovascular: No chest pain. Hematology/Lymphatics : No bruising tendency, No bleeding tendency. Health Status Allergies: Allergic Reactions (All) Severity Not Documented Aspirin- Anaphylactic reaction. Current medications: (Selected) Prescriptions Prescribed Albuterol (Eqv-ProAir HFA) 90 mcg/inh inhalation aerosol: 2 puff(s), Inhalation, q6hr, 18 gm, Refill(s) 3, INHALE 2 PUFFS BY MOUTH 4 TIMES A DAY NEEDED FOR SHORTNESS OF BREATH OR WHEEZING, [facility]/pharmacy #[id number], 172, cm, 09/25/22 9:54:00 EDT, Height/Length Dosing, 125.4, kg, 09/25/22 9:50:00 EDT, Weight Dosing... Zofran ODT 4 mg Tab-Dis: 4 mg = 1 tab(s), Oral, Once, # 30 tab(s), Refills(s) 0, Pharmacy: [facility]/pharmacy #[id number], 172, cm, 09/25/22 9:54:00 EDT, Height/Length Dosing, 125.4, kg, 09/25/22 9:50:00 EDT, Weight Dosing albuterol 0.083% Inh Negrita 3 mL: 2.5 mg, 3 mL, Inhalation, q6hr, 100 EA, Refill(s) 12, [facility] and [id number], cm, 06/12/22 14:02:00 EDT, Height/Length Dosing, 115.2, kg, 06/12/22 14:02:00 EDT, Weight Dosing Documented Medications Documented Zyrtec-D oral tablet, extended release: 1 tab(s), Oral, q24hr, 30 tab(s), Refill(s) 0, Allergy symptoms Problem list: All Problems Excessive dietary caloric intake / SNOMED CT 347060649 / Confirmed Chronic bilateral low back pain without sciatica / SNOMED CT 060046397 / Confirmed GERD without esophagitis / SNOMED CT 6683277198 / Confirmed Chronic frontal sinusitis / ICD-10-CM J32.1 / Confirmed Urinary tract infection / SNOMED CT 632906697 / Confirmed Antibiotic-induced yeast infection / SNOMED CT 558009825 / Confirmed Wellness examination / SNOMED CT 282095608 / Confirmed Canceled: Annual physical exam / SNOMED CT 082946219 Histories Past Medical History: No active or resolved past medical history items have been selected or recorded. Family History: Hypothyroidism Mother Primary malignant neoplasm of female breast Mother Alcoholism Father Procedure history: maxillary antrostomy total Ethmoidectomy, right sphenoidotomy (13768) on 11/08/2022 at 32 Years. Bilateral segmental tubal excision and ligation by endoscopy (50674267) on 12/04/2021 at 31 Years. Salpingectomy ([id number]) on 12/04/2021 at 31 Years. Comments: 12/28/2021 16:01 EDT - Alfredo HERNÁNDEZRadha bilateral section (16995235) on 07/20/2015 at 25 Years. Lumpectomy of left breast (8180921372) in 2010 at 20 Years. Tonsillectomy (924088577) in 2002 at 12 Years. Social History Social & Psychosocial Habits Alcohol 06/28/2021 Risk Assessment: Denies Alcohol Use 06/12/2022 Concerns about alcohol use in household: No Substance Abuse 06/28/2021 Risk Assessment: Denies Substance Abuse 06/12/2022 Concerns about substance abuse in household: No Tobacco 06/12/2022 Risk Assessment: High Risk 09/25/2022 Tobacco Use: Former smoker, quit more Smokeless tobacco use: Current vaping or e-cigar, Smokeless tobacco user wi Type: Cigarettes, Vaping Ready to change: No Concerns about tobacco use in household: No Smoking Cessation Yes . Physical Examination Please see preop flow sheet Airway: Mallampati classification: II (soft palate, fauces, uvula visible). Respiratory: Lungs are clear to auscultation. Cardiovascular: Normal rate, Regular rhythm. Neurologic: Alert. Review / Management Results review Interpretation of Outside Results Chest x-ray results Radiology results ECG interpretation Condition Plan [place] [employer] (ASA) physical status classification: Class III. Anesthetic Preoperative Plan Anesthesia: General. . Anesthetic plan, risks, benefits, and alternatives discussed with the patient and/or family. Risks discussed: nausea, vomiting, headache, sore throat, dental injury, serious complications. Patient verbalized understanding. Communication: face to face with patient 5 minutes. [facility] Comment on above: Result Comment: Elec tronically Signed By: MD Yunier, Edgar Garza\.porsche\Date and Time Signed: 11/13/22 11:42 EDT Consent for Anesthesiaon Consent for Anesthesia [id number]# 1.00CD:127 [facility] Discharge Instructionson Discharge Instructions [id number]# 1.00CD:127 [facility] IntraOperative Documentson 0 11-09-2022 IntraOperative Documents [id number]# 1.00CD:127 [facility] IntraOperative Documents [id number]# 1.00CD:127 [facility] Main OR Intraoperative Recor don 11-09-2022 Main OR Intraoperative Record IntraOp Document Type FT Summary Primary Physician: Traci Man MD Finalized Date/Time: 11/09/22 13:10:58 Pt. Name: CAROLINE DAVIS/Sex: 1990 Female Med Rec #: [id number] Physician: Traci Man MD Financial #: [id number] Pt. Type: A Room/Bed: [place] [address] Admit/Disch: 11/08/22 07:52:06 - 11/08/22 13:40:00 Institution: Case Times FT Entry 1 Patient Times In Room 11/08/22 10:10:00 Out Room 11/08/22 11:43:00 Procedure Times Start 11/08/22 10:34:00 Stop 11/08/22 11:35:00 Anesthesia Times Start 11/08/22 10:10:00 Stop 11/08/22 11:43:00 Last Modified By: Guille Rivera Ii 11/08/22 11:43:56 General Comments: 11/09/22 Chart opened to review and send charges LRoth CSFA Case Attendance FT Entry 1 Entry 2 Entry 3 Case Attendee Minal BURNS, Suze Man MD, Good uSresh CST Performed KATY Surgeon - Primary INTERCELL CONNECTOR PLACER/SA Time In 11/08/22 10:10:00 11/08/22 10:26:00 11/08/22 10:10:00 Time Out 11/08/22 11:43:00 11/08/22 11:35:00 11/08/22 11:43:00 Procedure ANTROSTOMY TURBINECTOMY ANTROSTOMY TURBINECTOMY ANTROSTOMY TURBINECTOMY ETHMOIDECTOMY ETHMOIDECTOMY ETHMOIDECTOMY IM(Bilateral) IM(Bilateral) IM(Bilateral) Comments Dr. Faye anesthesia dry paste supervisor Last Modified By: Guille Rivera Ii, Alfons Ii Kayla Rivera Alfons Ii F 11/08/22 11:44:05 11/08/22 11:44:05 11/08/22 11:44:05 Entry 4 Entry 5 Entry 6 Case Attendee Stephanie Nava Terry T Letrondo, Alfons Ii F Role Performed Scrub - Primary Software Testing Specialist - Primary Software Testing Specialist - Primary Time In 11/08/22 10:10:00 11/08/22 10:10:00 11/08/22 10:10:00 Time Out 11/08/22 11:43:00 11/08/22 11:43:00 11/08/22 11:43:00 Procedure ANTROSTOMY TURBINECTOMY ANTROSTOMY TURBINECTOMY ANTROSTOMY TURBINECTOMY ETHMOIDECTOMY ETHMOIDECTOMY ETHMOIDECTOMY IM(Bilateral) IM(Bilateral) IM(Bilateral) Comments Last Modified By: Guille Rivera Ii F Guille Rivera Ii F Murali Riveraons Ii F 11/08/22 11:44:05 11/08/22 11:44:05 11/08/22 11:44:05 Entry 7 Entry 8 Case Attendee Danny Garza Laura C Role Performed Staff - Other Staff - Other Time In 11/08/22 10:10:00 11/08/22 10:10:00 Time Out 11/08/22 11:43:00 11/08/22 11:43:00 Procedure ANTROSTOMY TURBINECTOMY ANTROSTOMY TURBINECTOMY ETHMOIDECTOMY ETHMOIDECTOMY IM(Bilateral) IM(Bilateral) Comments Helping in room and Helping in room and observing the case observing the case Last Modified By: Guille Rivera Ii F Murali Riveraons Ii F 11/08/22 11:44:05 11/08/22 11:44:05 General Comments: Angela Hope and Vivek Jj reps from [email or web address] were also in attendance. -aletrondo,daycare worker Protocols FT Pre-Care Text: Implements protective measures prior to operative or invasive procedure, confirms identity before the operative or invasive procedure, verifies operative procedure, surgical site, and laterality Entry 1 Procedure(s) ANTROSTOMY TURBINECTOMY Patient Identity Birthday, ID Band ETHMOIDECTOMY Verified (select at Check, Patient IM(Bilateral) least 2): Participation Consents / H and P Anesthesia Consent, Operative Site N/A Verified HandP, Surgery/Procedure Marking Verified Consent, Transfusion Consent Surgical Site Yes Laterality Verified Yes Verified Procedure Verified Yes Correct Patient Yes Position Verified Availability Equipment, Medication Prep Dry n/a Verified (If Applicable) PreOp Antibiotic No Time Out Suze Fontaine CRNA, Given Participants Magda HOUSTON, Traci Flynn, Raudel BROWN, Elijah Funk Sydney A, Sweene, Terry T, Guille Rivera Ii, Danny Garza, Adrienne Wen Time Out Complete 11/08/22 10:29:00 Outcomes Met? Yes Last Modified By: Guille Rivera Ii 11/08/22 10:45:53 Post-Care Text: The patient is free from signs and symptoms of injury caused by extraneous objects Allergy Information FT Pre-Care Text: Verifies allergies Entry 1 Allergies Reviewed? Yes Allergies Reviewed Self/Patient With Outcomes Met? Yes Last Modified By: Guille Rivera Ii 11/08/22 10:46:08 Post-Care Text: The patient received appropriate medication(s) safely administered during the perioperative period Surgical Procedures FT Entry 1 Procedure Description Procedure ANTROSTOMY TURBINECTOMY Modifiers Bilateral ETHMOIDECTOMY IMAGE GUIDED Surgeon Description BILATERAL MAXILLARY ANTROSTOMY, TOTAL ETHMOIDECTOMY, LEFT FRONTAL SINUS EXPLORATION BILATERAL INFERIOR TURBINATE SUBMUCOSAL RESECTION Primary Procedure Yes Primary Surgeon Magda HOUSTON, Traci Flynn Start 11/08/22 10:34:00 Stop 11/08/22 11:35:00 Anesthesia Type General Surgical Service ENT Wound Class 2 - Clean-Contaminated Last Modified By: Guille Rivera Ii 11/08/22 11:44:42 General Case Data FT Pre-Care Text: Classifies surgical wound, implements aseptic technique, initiates traffic control Entry 1 Case Information OR OR 2 FT Case Level Level 3 Wound Clas (more content not included)... Normal [facility] Preoperative Documentson Preoperative Documents [id number]# 1.00CD:127 [facility] Prescriptions/Work Noteson 0 11-09-2022 Prescriptions/Work Notes [id number]# 1.00CD:127 [facility] Consent for Treatmenton Consent for Treatment [id number]#1 .00CD:127 [facility] Discharge Instructionson Discharge Instructions CAROLINE DAVIS :1990 Visit Date:11/08/2022 Inpatient Discharge Instructions Your Care Team Admitting Physician - Traci Man MD Referring Physician - Traci Man MD Reason for Your Visit CHRONIC PANSINUSITIS Your Diagnosis Chronic pansinusitis Hypertrophy of inferior nasal turbinate This Is Your Medications List albuterol (Albuterol (Eqv-ProAir HFA) 90 mcg/inh inhalation aerosol) albuterol (albuterol 0.083% Inh Negrita 3 mL) cetirizine-pseudoephe drine (Zyrtec-D oral tablet, extended release) ondansetron (Zofran ODT 4 mg Tab-Dis) What to do next Instructions From Your Doctor Event Name Event Result Discharge Instructions Freetext No nose blowingSaline sinus irrigations twice dailyKeep head elevated Discharge Activity Expect minimal amount of drainage and/or bleeding, Activity as tolerated Discharge Diet(s) Regular Call Your Doctor For Persistent or heavy bleeding Discharge Instructions Discharge Instructions New Follow Up Appointments after Discharge Follow Up with Traci Man When: In 6 days 11/14/2022 EDT Comments: Call for appointment Where: [address] [place] [address] [place] [address] [phone] Medications What How Much When Instructions Next Dose Unchanged albuterol (Albuterol (Eqv-ProAir HFA) 90 mcg/ inh inhalation aerosol) 2 Puffs Inhalation Every 6 hours INHALE 2 PUFFS BY MOUTH 4 TIMES A DAY NEEDED FOR SHORTNESS OF BREATH OR WHEEZING Unchanged albuterol (albuterol 0.083% Inh Negrita 3 mL) 3 Milliliter Inhalation Every 6 hours To the neareast box. Q6H and PRN Unchanged cetirizine-pseudoephe drine (Zyrtec-D oral tablet, extended release) 1 Tablets By Mouth Every 24 hours Unchanged ondansetron (Zofran ODT 4 mg Tab-Dis) 1 Tablets By Mouth Once Allergies aspirin (Anaphylactic reaction) Problems Ongoing - Any problem that you are currently receiving treatment for. Antibiotic-induced yeast infection Chronic bilateral low back pain without sciatica Chronic frontal sinusitis Excessive dietary caloric intake GERD without esophagitis Urinary tract infection Wellness examination Education Materials Common Emergency Awareness Tips IS IT A STROKE? Act FAST and Check for these signs: FACE Does the face look uneven? ARM Does one arm drift down? SPEECH Does their speech sound strange? TIME Call at any sign of stroke Heart Attack Signs Chest discomfort: Most heart attacks involve discomfort in the center of the chest and lasts more than a few minutes, or goes away and comes back. It can feel like uncomfortable pressure, squeezing, fullness or pain. Discomfort in upper body: Symptoms can include pain or discomfort in one or both arms, back, neck, jaw or stomach. Shortness of breath: With or without discomfort. Other signs: Breaking out in a cold sweat, nausea, or lightheaded. Remember, MINUTES DO MATTER. If you experience any of these heart attack warning signs, call to get immediate medical attention! Patient Portal You may access all of your results and other medical record information on our secure patient portal. If you are not signed up for this yet, please contact [employer] at [phone] to get signed up today. Patient Name: CAROLINE DAVIS I have received this information and my questions have been answered. Patient/Representativ e Name: Patient/Representativ e Signature: Relationship to Patient: Witness Name/Signature: Date: Normal [facility] Comment on above: Result Comment: Elec tronically Signed By: Zachary OQUENDO, Cris Meneses\.br\Date and Time Signed: 11/08/22 13:13 EDT Inpatient Patient Summaryon 11-08-2022 Inpatient Patient Summary [place] [id number] [facility] Clinical Discharge Instructions PERSON INFORMATION Name: CAROLINE DAVIS PHYSICIANS Admitting Physician: Traci Man MD Attending Physician: Traci Man MD PCP: Tom Whyte MD Discharge Diagnosis: Chronic pansinusitis; Hypertrophy of inferior nasal turbinate Comment: PATIENT EDUCATION INFORMATION Instructions: Medication Leaflets: Follow up: With: Address: When: Traci Man [address] [place] [id number] In 6 days 11/14/2022 Comments: Call for appointment MEDICATION LIST Medications to Continue with No Changes Other Medications albuterol (Albuterol (Eqv-ProAir HFA) 90 mcg/inh inhalation aerosol) 2 Puffs Inhalation every 6 hours. INHALE 2 PUFFS BY MOUTH 4 TIMES A DAY NEEDED FOR SHORTNESS OF BREATH OR WHEEZING. Refills: 3. albuterol (albuterol 0.083% Inh Negrita 3 mL) 3 Milliliter Inhalation every 6 hours. To the neareast box. Q6H and PRN. Refills: 12. cetirizine-pseudoephe drine (Zyrtec-D oral tablet, extended release) 1 Tablets By Mouth every 24 hours. ondansetron (Zofran ODT 4 mg Tab-Dis) 1 Tablets By Mouth Once. Refills: 0. Comment: Jae Estrada [facility] Main OR PACU I [facility] Main OR PACU I Record PACU Phase I Docum ent Type FT Summary Primary Physician: Traci Man MD Finalized Date/Time: 11/08/22 13:03:38 Pt. Name: CAROLINE DAVIS/Sex: 1990 Female Med Rec #: [id number] Physician: Traci Man MD Financial #: [id number] Pt. Type: A Room/Bed: [place] [address] Admit/Disch: 11/08/22 07:52:06 - Institution: Case Times PACU I FT Pre-Care Text: Identifies barriers to communication and implements measures to provide psychological support Develops individualized plan of care, and ensures continuity of care Maintains patient's dignity and privacy, and maintains patient confidentiality Identifies and reports philosophical, cultural, and spiritual beliefs and values Identifies individual values and wishes concerning care Implements aseptic technique, and administers prescribed antibiotic therapy and immunizing agents as ordered Evaluates postoperative tissue perfusion Implements thermoregulation measures, and monitors body temperature Evaluates postoperative respiratory status Evaluates postoperative cardiac status Evaluates postoperative neurological status Assesses pain control, collaborated in initiating patient-controlled analgesia and implements alternative methods of pain control Verifies allergies, administers prescribed medications and solutions, evaluates response to medications Entry 1 In PACU I 11/08/22 11:45:00 Discharge from PACU 11/08/22 12:40:00 I Outcomes Met? Yes Last Modified By: Kala Muir RN 11/08/22 13:03:19 Post-Care Text: The patient demonstrates knowledge of the expected response to the operative or invasive procedure The patient's care is consistent with the individualized perioperative plan of care The patient's right to privacy is maintained The patient's value system, lifestyle, ethnicity, and culture are considered, respected, and incorporated into the perioperative plan of care The patient participates in decisions affecting his or her perioperative plan of care The patient is free from signs and symptoms of infection The patient has wound/tissue perfusion consistent with or improved from baseline levels established preoperatively The patient is at or returning to normothermia at the conclusion of the immediate postoperative period The patient's respiratory function is consistent with or improved from baseline levels established preoperatively The patient's cardiovascular status is consistent with or improved from baseline levels established preoperatively The patient's cardiovascular status is consistent with or improved from baseline levels established preoperatively The patient demonstrates and/or reports adequate pain control throughout the perioperative period The patient received appropriate medication(s), safely administered during the perioperative period Acuity Level PACU I FT Entry 1 Start Time 11/08/22 11:45:00 Stop Time 11/08/22 12:40:00 Acuity Level Acuity Level I Last Modified By: Kala Muir RN 11/08/22 13:03:35 Finalized By: Kala Muir RN Document Signatures Signed By: Kala Muir RN 11/08/22 13:03 Normal [facility] Main OR PACU II [facility] Main OR PACU II Record PACU Phase II Document Type FT Summary Primary Physician: Traci Man MD Finalized Date/Time: 11/08/22 13:58:39 Pt. Name: GLADYSCAROLINE/Sex: 1990 Female Med Rec #: [id number] Physician: Traci Man MD Financial #: [id number] Pt. Type: A Room/Bed: [facility]/ Admit/Disch: 11/08/22 07:52:06 - 11/08/22 13:40:00 Institution: Case Times PACU II FT Pre-Care Text: Identifies barriers to communication and implements measures to provide psychological support and determines knowledge level Develops individualized plan of care, and ensures continuity of care Maintains patient's dignity and privacy, and maintains patient confidentiality Identifies and reports philosophical, cultural, and spiritual beliefs and values Identifies individual values and wishes concerning care administers prescribed antibiotic therapy and immunizing agents as ordered, Evaluates postoperative tissue perfusion Implements thermoregulation measures, and monitors body temperature Evaluates postoperative respiratory status Evaluates postoperative cardiac status Evaluates postoperative neurological status Assesses pain control, collaborated in initiating patient-controlled analgesia and implements alternative methods of pain control Verifies allergies, administers prescribed medications and solutions, evaluates response to medications Entry 1 In PACU II 11/08/22 12:40:00 Discharge from PACU 11/08/22 13:40:00 II Outcomes Met? Yes Last Modified By: Cris Sharma RN 11/08/22 13:58:37 Post-Care Text: The patient demonstrates knowledge of the expected response to the operative or invasive procedure The patient's care is consistent with the individualized perioperative plan of care The patient's right to privacy is maintained The patient's value system, lifestyle, ethnicity, and culture are considered, respected, and incorporated into the perioperative plan of care The patient participates in decisions affecting his or her perioperative plan of care. The patient is free from signs and symptoms of infection The patient has wound/tissue perfusion consistent with or improved from baseline levels established preoperatively The patient is at or returning to normothermia at the conclusion of the immediate postoperative period The patient's respiratory function is consistent with or improved from baseline levels established preoperatively The patient's cardiovascular status is consistent with or improved from baseline levels established preoperatively The patient's neurological status is consistent with or improved from baseline levels established preoperatively The patient demonstrates and/or reports adequate pain control throughout the perioperative period The patient received appropriate medication(s), safely administered during the perioperative period Finalized By: Cris Sharma RN Document Signatures Signed By: Cris Sharma RN 11/08/22 13:58 Normal [facility] Main OR Preoperative Recordo n 11-08-2022 Main OR Preoperative Record PreOp Document Type FT Summary Primary Physician: Traci Man MD Finalized Date/Time: 11/08/22 10:38:37 Pt. Name: CAROLINE DAVIS/Sex: 1990 Female Med Rec #: [id number] Physician: Traci Man MD Financial #: [id number] Pt. Type: A Room/Bed: [facility] Admit/Disch: 11/08/22 07:52:06 - Institution: Case Times PreOp FT Pre-Care Text: Verifies consent for planned procedure, identifies individual values and wishes concerning care, includes family members in perioperative teaching Entry 1 Patient Times. In Pre Surgery 11/08/22 07:50:00 Out Pre Surgery 11/08/22 10:08:00 Outcomes Met? Yes Last Modified By: Guille Rivera Ii 11/08/22 10:38:36 Post-Care Text: The patient participates in decisions affecting his or her perioperative plan of care Finalized By: Guille Rivera Ii Document Signatures Signed By: Guille Rivera Ii 11/08/22 10:38 Normal [facility] Monitor [facility] 11-08-2022 Monitor Record [id number]# 1.00CD:127 Normal [facility] Monitor Record [id number]# 1.00CD:127 Normal [facility] Outpatient Surgery Discharge Instructionon 11-08-2022 Outpatient Surgery Discharge Instruction [place] [id number] Patient Discharge Instructions PERSON INFORMATION Name: CAROLINE DAVIS Date of : 1990 Current Date: 11/08/2022 12:23:12 PHYSICIANS Admitting Physician: Traci Man MD Discharge Diagnosis: Chronic pansinusitis; Hypertrophy of inferior nasal turbinate CAROLINE DAVIS has been given the following list of follow-up instructions, prescriptions, and patient education materials: PATIENT FOLLOW-UP INFORMATION Diet: Regular Discharge Activity: Expect minimal amount of drainage and/or bleeding, Activity as tolerated Call Your Doctor For: Persistent or heavy bleeding Additional Instructions: No nose blowing Saline sinus irrigations twice daily Keep head elevated IF UNABLE TO CONTACT YOUR PHYSICIAN AND YOU FEEL IT IS AN EMERGENCY, GO TO THE NEAREST EMERGENCY ROOM OR CALL 911 IGLADYS NICOLE M, have received the attached patient education materials/instruction s and have verbalized understanding: May we do a follow up call? Yes No I was present when discharge instructions were given Patient Signature Date Clinican/Nurse Signature Date Follow up: With: Address: When: Traci Man [address] [facility] [place] [address] In 6 days 11/14/2022 Comments: Call for appointment Pharmacy Information: You may receive a survey from [employer] asking you to rate your care experience. Your feedback is important and will help us understand what we do well and how we can improve the quality of care we provide to you, your loved ones and our community. It?s an honor to serve you. Thank you for choosing [facility] HERE ARE THE MEDICATION CHANGES THAT OCCURRED DURING YOUR HOSPITAL STAY Medications to Continue with No Changes Other Medications albuterol (Albuterol (Eqv-ProAir HFA) 90 mcg/inh inhalation aerosol) 2 Puffs Inhalation every 6 hours. INHALE 2 PUFFS BY MOUTH 4 TIMES A DAY NEEDED FOR SHORTNESS OF BREATH OR WHEEZING. Refills: 3. albuterol (albuterol 0.083% Inh Negrita 3 mL) 3 Milliliter Inhalation every 6 hours. To the neareast box. Q6H and PRN. Refills: 12. cetirizine-pseudoephe drine (Zyrtec-D oral tablet, extended release) 1 Tablets By Mouth every 24 hours. ondansetron (Zofran ODT 4 mg Tab-Dis) 1 Tablets By Mouth Once. Refills: 0. PATIENT EDUCATION INFORMATION Instructions: Medication Leaflets: Normal [facility] Patient Education - Texton 0 11-08-2022 Patient Education - Text Normal [facility] Consent for Procedure/Surger yon 10-26-2022 Consent for Procedure/Surgery [id number] .00CD:127 Normal [facility] XR Chest 2 Viewson 3 XR Chest 2 Views Exam Date/Time: 10/15/2022 13:52 EDT Reason for Exam: P.A.T. Report IMPRESSION: NO EVIDENCE OF ACTIVE CARDIOPULMONARY DISEASE. EXAM: XR Chest 2 Views DATE: 10/15/2022 CLINICAL HISTORY: P.A.T.. Current smoker. COMPARISON: None available. TECHNIQUE: Upright PA and lateral radiographs of the chest were obtained. FINDINGS: There is no significant pulmonary infiltrate, cardiomegaly, pleural effusion, vascular congestion, pneumothorax, or displaced fractures identified. Ordering Provider: Faye Ahmad FINAL REPORT Dictated: 10/17/2022 6:32 am Sean Thomson MD Signed (Electronic Signature): 10/17/2022 6:32 am Signed by: Sean Thomson MD Transcribed by: JENNIFER Technologist: PANFILO Technical Comments Radiation Dose: Ka,r in mGy = n/a DAP = n/a Normal [facility] Auto Diffon 10-15-2022 Basophils/100 WBC (Bld) 0.6 % Normal 0.0-2.0 [facility] Comment on above: Order Comment: Order Added by Discern Expert. Performed By: #### 2 [id number], [id number], [id number] ####[facility] [address] [place] [address] Basophils/Leukocytes Auto (Bld) [Pure # fraction] 0.1 E9/L Normal 0.0-0.2 [facility] Comment on above: Order Comment: Order Added by Discern Expert. Performed By: #### 2 737594, [id number], [id number] ####[address] [address] Eosinophils/100 WBC (Bld) 3.3 % Normal 0.0-8.0 [facility] Comment on above: Order Comment: Order Added by Roger Expert. Performed By: #### 2 690005, 6797542, [id number] ####[address] [address] Eosinophils/Leukocytes Auto (Bld) [Pure # fraction] 0.4 E9/L Normal 0.0-0.5 [facility] Comment on above: Order Comment: Order Added by Roger Expert. Performed By: #### 2 484433, [id number], [id number] ####[address] [address] Lymphocytes/100 WBC (Bld) 22.9 % Normal 14.0-50.0 [facility] Comment on above: Order Comment: Order Added by Roger Expert. Performed By: #### 2 648710, 7747123, [id number] ####[address] [address] Lymphocytes/Leukocytes Auto (Bld) [Pure # fraction] 2.5 E9/L Normal 1.0-4.0 [facility] Comment on above: Order Comment: Order Added by Roger Expert. Performed By: #### 2 509009, [id number], [id number] ####[address] [address] Monocytes/100 WBC (Bld) 7.7 % Normal 4.0-14.0 [facility] Comment on above: Order Comment: Order Added by Roger Expert. Performed By: #### 2 957611, 1865584, [id number] ####[place] [address] [place] [address] Monocytes/Leukocytes Auto (Bld) [Pure # fraction] 0.8 E9/L Normal 0.2-1.0 [facility] Comment on above: Order Comment: Order Added by Discern Expert. Performed By: #### 2 695456, 0556813, [id number] ####[address] [address] Neutrophils/100 WBC (Bld) 65.5 % Normal 36.0-75.0 [facility] Comment on above: Order Comment: Order Added by Discern Expert. Performed By: #### 2 605486, 2326541, [id number] ####[address] [address] Neutrophils/Leukocytes Auto (Bld) [Pure # fraction] 7.2 E9/L Normal 2.0-7.5 [facility] Comment on above: Order Comment: Order Added by Discern Expert. Performed By: #### 2 618901, 0168729, [id number] ####[address] [address] CBC w/ Auto Diffon 3 Erythrocyte distribution width (RBC) [Ratio] 13.7 % Normal 10.9-14.2 [facility] Comment on above: Performed By: #### 2 109021, 8143555, [id number] ####[address] [address] Hematocrit (Bld) [Volume fraction] 40.3 % Normal 34.0-46.0 [facility] Comment on above: Performed By: #### 2 594110, 0244648, [id number] ####[address] [address] Hemoglobin (Bld) [Mass/Vol] 13.7 g/dL Normal 12.0-16.0 [facility] Comment on above: Performed By: #### 2 672842, 2876564, [id number] ####[address] [address] MCH (RBC) [Entitic mass] 28.5 pg Normal 27.0-34.0 [facility] Comment on above: Performed By: #### 2 505212, 0985492, [id number] ####[facility] [address] [place] [address] MCHC (RBC) [Mass/Vol] 34.0 g/dL Normal 31.4-36.0 [facility] Comment on above: Performed By: #### 2 682025, 3895763, [id number] ####[facility] [address] [place] [address] MCV (RBC) [Entitic vol] 83.8 fL Normal 80.0-100.0 [facility] Comment on above: Performed By: #### 2 385535, 9866909, [id number] ####[address] [address] Platelet mean volume (Bld) [Entitic vol] 7.9 fL Normal 6.4-10.8 [facility] Comment on above: Performed By: #### 2 282879, 0802652, [id number] ####[facility] [address] [place] [address] Platelets (Bld) [#/Vol] 321.0 E9/L Normal 150.0-500.0 [facility] Comment on above: Performed By: #### 2 869718, 4547682, [id number] ####[address] [address] RBC (Bld) [#/Vol] 4.8 E12/L Normal 4.3-5.9 [facility] Comment on above: Performed By: #### 2 867788, 1839904, [id number] ####[facility] [address] [place] [address] WBC corrected for nucl RBC Auto (Bld) [#/Vol] 11.0 E9/L Normal 4.0-11.0 [facility] Comment on above: Performed By: #### 2 061533, 7576809, [id number] ####[address] [address] COAGULATIONOrdered By: Liliana Conroy on 10-15-2022 aPTT Coag (PPP) [Time] 34.1 s Normal 25.1 - 36.5 second(s) [facility] Auto Coag INR Coag (PPP) [Relative time] 1.0 {INR} Invalid Interpretation Code [facility] Auto Coag PT Coag (PPP) [Time] 11.6 s Normal 9.4 - 1 2.5 second(s) [facility] Auto Coag Consent for Treatmenton 10-02 Consent for Treatment [id number]#1 .00CD:127 Normal [facility] HEMATOLOGYOrdered By: SYSTEM SYSTEM on 10-15-2022 Basophils/100 WBC (Bld) 0.6 % Normal 0.0 - 2.0 % [facility] HemeAutoSS Basophils/Leukocytes Auto (Bld) [Pure # fraction] 0.1 E9/L Normal 0.0 - 0.2 E9/L [facility] HemeAutoSS Eosinophils/100 WBC (Bld) 3.3 % Normal 0.0 - 8.0 % [facility] HemeAutoSS Eosinophils/Leukocytes Auto (Bld) [Pure # fraction] 0.4 E9/L Normal 0.0 - 0.5 E9/L [facility] HemeAutoSS Lymphocytes/100 WBC (Bld) 22.9 % Normal 14.0 - 50.0 % [facility] HemeAutoSS Lymphocytes/Leukocytes Auto (Bld) [Pure # fraction] 2.5 E9/L Normal 1.0 - 4.0 E9/L [facility] HemeAutoSS Monocytes/100 WBC (Bld) 7.7 % Normal 4.0 - 14.0 % [facility] HemeAutoSS Monocytes/Leukocytes Auto (Bld) [Pure # fraction] 0.8 E9/L Normal 0.2 - 1.0 E9/L [facility] HemeAutoSS Neutrophils/100 WBC (Bld) 65.5 % Normal 36.0 - 75.0 % [facility] HemeAutoSS Neutrophils/Leukocytes Auto (Bld) [Pure # fraction] 7.2 E9/L Normal 2.0 - 7.5 E9/L [facility] HemeAutoSS HEMATOLOGYOrdered By: Bartolo Cotton on 10-15-2022 Erythrocyte distribution width (RBC) [Ratio] 13.7 % Normal 10.9 - 14.2 % [facility] HemeAutoSS Hematocrit (Bld) [Volume fraction] 40.3 % Normal 34.0 - 46.0 % [facility] HemeAutoSS Hemoglobin (Bld) [Mass/Vol] 13.7 g/dL Normal 12.0 - 16.0 gm/dL [facility] HemeAutoSS MCH (RBC) [Entitic mass] 28.5 pg Normal 27.0 - 34.0 pg [facility] HemeAutoSS MCHC (RBC) [Mass/Vol] 34.0 g/dL Normal 31.4 - 36.0 gm/dL [facility] HemeAutoSS MCV (RBC) [Entitic vol] 83.8 fL Normal 80.0 - 100.0 fL [facility] HemeAutoSS Platelet mean volume (Bld) [Entitic vol] 7.9 fL Normal 6.4 - 10.8 fL [facility] HemeAutoSS Platelets (Bld) [#/Vol] 321.0 E9/L Normal 150.0 - 500.0 E9/L [facility] HemeAutoSS RBC (Bld) [#/Vol] 4.8 E12/L Normal 4.3 - 5.9 E12/L [facility] HemeAutoSS WBC corrected for nucl RBC Auto (Bld) [#/Vol] 11.0 E9/L Normal 4.0 - 11.0 E9/L [facility] HemeAutoSS PT & PTTon 10-15-2022 aPTT Coag (PPP) [Time] 34.1 second(s) Normal 25.1-36.5 [facility] Comment on above: Result Comment: Para meter 15 days - 4 weeks 1 - 5 months 6 - 11 months 1 - 5 years 6 - 10 years 11 - 17 years PTT Mean: 35.4 (27.6-45.6) Mean: 33.5 (24.8-40.7) Mean: 32.4 (25.1-40.7) Mean: 31.6 (24.0-39.2) Mean: 31.6 (26.9-38.7) Mean: 31.0 (24.6-38.4) Pediatric Reference ranges were obtained from a study by Corey Camarillo et al. prepared from 1437 samples obtained at 7 different centers using the same coagulation reagent and instrumentation as [facility] [place] [place]. Currently there are no coagulation studies available worldwide for children to 14 days, and no normal ranges. Heparin therapeutic range (represented by Anti-Factor Xa activity of 0.2 - 0.4 U/mL) corresponds to PTT of 56.6 - 109.0 sec. Performed By: #### 2 [id number], [id number], [id number] ####[facility] [address] [place] [address] INR Coag (PPP) [Relative time] 1.0 {INR} Invalid Interpretation Code [facility] Comment on above: Result Comment: INR results are specifically intended to assess patients stabilized on long-term Anticoagulation therapy suggested INR?s ?Less Intensive Anticoagulation? 2.0 ? 3.0 Conventional Range 3.0 ? 4.5 Performed By: #### 2 [id number], [id number] ####[facility] [id number] [place] [address] PT Coag (PPP) [Time] 11.6 second(s) Normal 9.4-12.5 [facility] Comment on above: Result Comment: 15 d ays - 4 weeks 1 - 5 months 6 -11 months 1 ? 5 years 6 ? 10 years 11 -17 years Mean: 11.2 (9.5 ? 12.6) Mean: 11.0 (9.7 ? 12.8) Mean: 11.0 (9.8 ? 13.0) Mean: 11.3 (9.9 ? 13.4) Mean: 11.7 (10.0 ? 14.6) Mean: 11.8 (10.0 - 14.1) Pediatric Reference ranges were obtained from a study by Corey Camarillo et al. prepared from 1437 samples obtained at 7 different centers using the same coagulation reagent and instrumentation as [facility] [place], [place]. Currently there are no coagulation studies available worldwide for children to 14 days, and no normal ranges. Performed By: #### 2 [id number] ####[facility] [id number] [place] [address] Physician Orderon 10-15-2022 Physician Order [id number]# 1.00CD:127 Normal [facility] Lab Reportson 10-01-2022 Lab Reports [id number] .00CD:127 [facility] CT Maxillofacial w/o Contras ton 09-29-2022 CT Maxillofacial w/o Contrast Exam Date/Time: 09/28/2022 10:19 EDT Reason for Exam: J32.4 Report IMPRESSION: PANSINUSITIS. CT MAXILLOFACIAL WITHOUT INTRAVENOUS CONTRAST MEDIUM. History: Sinus infection.. Technical factors: CT maxillofacial was obtained and formatted as 5 mm contiguous axial images. 2.5 mm contiguous axial images were obtained through the osseous structures. Sagittal and coronal reconstruction obtained during postprocessing. Comparison: None. Findings: Frontal sinuses patent bilaterally. Minimal/mild opacification, bilateral ethmoid sinuses. Partial opacification right sphenoid sinus. Mucosal thickening bilateral maxillary sinuses greatest in dependent portion.. Nasal septum midline. Mucosal thickening bilateral ostiomeatal complexes. Mastoid air cells pneumatized bilaterally. Bilateral ocular globes, extraocular muscles, optic nerves, retrobulbar fat without anomaly. No fractures. No bone lesions. All CT scans at this facility use dose modulation, iterative reconstruction, and/or weight based dosing when appropriate to reduce radiation dose to as low as reasonably achievable. Ordering Provider: Traci Man FINAL REPORT Dictated: 09/29/2022 2:10 pm Good Monsivais MD Signed (Electronic Signature): 09/29/2022 2:10 pm Signed by: Good Monsivais MD Transcribed by: JENNIFER Technologist: [facility] Consent for Treatmenton 09-02 Consent for Treatment [id number] .00CD:127 [facility] Insurance Correspondenceon 0 09-28-2022 Insurance Correspondence [id number]. 00CD:127 [facility] Family Medicine Office/Clini c Noteon 09-25-2022 Family Medicine Office/Clinic Note HPI Staff Caroline is a 32 year old female patient presenting to the office yearly physial Health Maintenance: Mammo: no Pap: 2021 normal Last Labs: 2021 Immunizations: UTD Quesitons/Concerns: Pt would like lab work ordered and she will get that done at [facility]. pt need refill on Flexeril and Zofran, Albuterol Inh History of Present Illness pt presents today for wellness visit. pt has lab order to be done at [facility] Review of Systems PHQ Score Initial Depression Screen Score: 0 ROS - Provider Constitutional: no fever, no chills, no sweats, no fatigue Respiratory: no shortness of breath, no cough, no orthopnea, no wheezing. Cardiovascular: no chest pain, no palpitations, no edema. Neurologic: no headache, no dizziness, no numbness, no weakness. Physical Exam Vitals & Measurements HR: 78(Peripheral) RR: 18 BP: 128/76 SpO2: 99% HT: 68 in HT: 172 cm WT: 125.4 kg WT: 275.88 lb BMI: 42.39 General: alert, no acute distress Skin: warm, dry Head: no trauma, normocephalic Neck: Trachea midline, thyroid not enlarged Eye: normal conjunctiva, sclera clear ENMT: oral mucosa moist, yes Cardiovascular: regular rate and rhythm, normal Respiratory: respirations non labored Chest wall: no deformity. Gastrointestinal: soft, non distended, no tenderness Back: No tenderness Extremities: no edema, no wound Neurological: awake, alert, oriented, speech normal Psychiatric: cooperative, affect appropriate for age Assessment/Plan 1. Wellness examination (Z00.00: Encounter for general adult medical examination without abnormal findings) pt presents today for wellness visit. physical exam WNL. lab order signed for employee wellness labs at [facility]. al questions answered. meds refilled. RTC as needed 2. BMI 40.0-44.9, adult (Z68.41: Body mass index [BMI] 40.0-44.9, adult) BMI education complete 3. Vaping nicotine dependence, tobacco product (F17.290: Nicotine dependence, other tobacco product, uncomplicated) consider not vaping Orders: albuterol, 2 puff(s), Inhalation, q6hr, 18 gm, Refill(s) 3, INHALE 2 PUFFS BY MOUTH 4 TIMES A DAY NEEDED FOR SHORTNESS OF BREATH OR WHEEZING, [id number], 172, cm, 09/25/22 9:54:00 EDT, Height/Length Dosing, 125.4, kg, 09/25/22 9:50:00 EDT, Weight Dosing albuterol, 2 puff(s), Inhalation, q6hr, 18 gm, Refill(s) 0, INHALE 2 PUFFS BY MOUTH 4 TIMES A DAY NEEDED FOR SHORTNESS OF BREATH OR WHEEZING, [id number], cm, 07/18/22 16:50:00 EDT, Height/Length Dosing, 120, kg, 07/18/22 16:50:00 EDT, Weight Dosing cyclobenzaprine, 10 mg = 1 tab(s), Oral, TID, PRN for spasm, X 30 day(s), # 30 tab(s), Refills(s) 0, [id number], 172, cm, 09/25/22 9:54:00 EDT, Height/Length Dosing, 125.4, kg, 09/25/22 9:50:00 EDT, Weight Dosing cyclobenzaprine, 10 mg = 1 tab(s), Oral, TID, PRN for spasm, # 30 tab(s), Refills(s) 0, [id number], 175, cm, 07/18/22 16:50:00 EDT, Height/Length Dosing, 120, kg, 07/18/22 16:50:00 EDT, Weight Dosing fluconazole, 150 mg = 1 tab(s), Oral, Once, # 1 tab(s), Refills(s) 1, [id number], 172, cm, 08/21/22 14:35:00 EDT, Height/Length Dosing, 122.9, kg, 08/21/22 14:35:00 EDT, Weight Dosing ondansetron, 4 mg = 1 tab(s), Oral, Once, # 30 tab(s), Refills(s) 0, [id number], 175, cm, 07/18/22 16:50:00 EDT, Height/Length Dosing, 120, kg, 07/18/22 16:50:00 EDT, Weight Dosing ondansetron, 4 mg = 1 tab(s), Oral, Once, # 30 tab(s), Refills(s) 0, [id number] 172, cm, 09/25/22 9:54:00 EDT, Height/Length Dosing, 125.4, kg, 09/25/22 9:50:00 EDT, Weight Dosing Follow-up No qualifying data available Problem List/Past Medical History Ongoing Antibiotic-induced yeast infection Chronic bilateral low back pain without sciatica Chronic frontal sinusitis Excessive dietary caloric intake GERD without esophagitis Urinary tract infection Wellness examination Historical No qualifying data Procedure/Surgical History Bilateral segmental tubal excision and ligation by endoscopy (12/04/2021), Salpingectomy (12/04/2021), section (07/20/2015), Lumpectomy of left breast (2010), Tonsillectomy (2002). Medications Albuterol (Eqv-ProAir HFA) 90 mcg/inh inhalation aerosol, 2 puff(s), Inhalation, q6hr, 3 refills albuterol 0.083% Inh Negrita 3 mL, 2.5 mg= 3 mL, Inhalation, q6hr, 12 refills cyclobenzaprine 10 mg Tab, 10 mg= 1 tab(s), Oral, TID, PRN Zofran ODT 4 mg Tab-Dis, 4 mg= 1 tab(s), Oral, Once Zyrtec-D oral tablet, extended release, 1 tab(s), Oral, q24hr Allergies aspirin (Anaphylactic reaction) Social History Alcohol - Denies Alcohol Use, 06/28/2021 Household alcohol concerns: No., 06/12/2022 Substance Abuse - Denies Substance Abuse, 06/28/2021 Household substance abuse concerns: No., 06/12/2022 Tobacco - High Risk, 06/12/2022 Former smoker, quit more than 30 days ago Tobacco Use:. Smokeless tobacco user within last 30 days, Current vaping or e-cigarette use Smokeless Tobacc (more content not included)... Normal [facility] Comment on above: Result Comment: Elec tronically Signed By: Kathryn Fall.porsche\Date and Time Signed: 09/25/22 10:14 EDT Physician Orderon 08-24-2022 Physician Order [id number]#1. 00CD:127 Normal [facility] C Urineon 08-23-2022 Bacteria identified Cx Nom (U) Microbiology PROCEDURE: Urine Culture [R1] SOURCE: U CleanCatch BODY SITE: COLLECTED DATE/TIME: 08/21/2022 15:08 EDT RECEIVED DATE/TIME: 08/22/2022 10:16 EDT START DATE/TIME: 08/21/2022 21:00 EDT FREE TEXT SOURCE: Gill FELIX, Kathryn Garland IMPLEMENTATION COORDINATOR, Kathryn Mata FINAL REPORTS Final Report [] Verified Date/Time: 08/23/2022 09:26 EDT 50,000 cfu/ml Escherichia coli SUSCEPTIBILITY RESULTS LEGEND: S=Susceptible, N/R=Not Reported, Blank=Data not available, or drug not advisable or tested, I=Intermediate, ESBL=Extended spectrum beta-lactamase, R=Resistant, TFG=Thymidine-depende nt strain, JACOB=Beta-lactamase positive, ANTONIETTA=mcg/m;(mg/L), S*=Predicted susceptible interp, R*=Predicted resistant interp EC Antibiotic ANTONIETTA Dilutn ANTONIETTA Interp Amikacin <=16 S Ampicillin <=8 S Ampicillin/ <=8/4 S Sulbactam Aztreonam <=4 S Cefazolin <=2 S Cefepime <=2 S Cefoxitin <=8 S Ceftazidime <=1 S Ceftazidime/ <=8 S Avibactam Ceftriaxone <=1 S Ciprofloxacin <=1 S Ertapenem <=0.5 S Gentamicin <=4 S Levofloxacin <=2 S Meropenem <=1 S Nitrofurantoin <=32 S Piperacillin/ <=16 S Tazobactam Tetracycline <=4 S Tigecycline <=2 S Tobramycin <=4 S Trimethoprim/ <=2/38 S Sulfa Performing Locations R1: This test was performed at: [facility], [address] [place] [address], [id number] , [place], [facility] Comment on above: Performed By: #### 2 [id number] ####[facility] [id number] [place] [address] Physician Orderon 08-22-2022 Physician Order [id number]# 1.00CD:127 [facility] Ambulatory Visit Summaryon 0 08-21-2022 Ambulatory Visit Summary CAROLINE DAVIS :1990 Visit Date:08/21/2022 Ambulatory Visit Instructions Your Diagnosis Urinary tract infection Antibiotic-induced yeast infection Your Care Team Attending Physician - Kathryn Fall Primary Care Physician - Magda HOUSTON, Traci Flynn This Is Your Medications List albuterol (Albuterol (Eqv-ProAir HFA) 90 mcg/inh inhalation aerosol) albuterol (albuterol 0.083% Inh Negrita 3 mL) cetirizine-pseudoephe drine (Zyrtec-D oral tablet, extended release) ciprofloxacin (Cipro 500 mg Tab) cyclobenzaprine (cyclobenzaprine 10 mg Tab) famotidine (Pepcid 20 mg Tab) fluconazole (Diflucan 150 mg Tab) ondansetron (Zofran ODT 4 mg Tab-Dis) semaglutide (Ozempic 2 mg/3 mL (0.25 mg or 0.5 mg dose) subcutaneous solution) Procedures Performed Bilateral segmental tubal excision and ligation by endoscopy (12/04/2021), Salpingectomy (12/04/2021), section (07/20/2015), Lumpectomy of left breast (2010), Tonsillectomy (2002). Discharge Vitals Heart Rate (Peripheral) 88 Respiratory Rate 18 Blood Pressure 138/72 Height 172 cm Height 68 in Weight 122.9 kg Weight 270.38 lb BMI 41.54 What to do next Scheduled Follow-Up Appointments Saturday 3:20 PM EDT With: Ptao HOUSTON, Tom Garcia [facility] 08-21-[facility] Family Medicine Office/Clinic Note Chief Complaint UTI HPI Staff Patient presents to office with complaints of a UTI Dysuria: Onset: This morning. Symptoms: constant frequency, general discomfort, continuous burning sensation, OTC used: AZO Last UTI: within the last year Hx of kidney stones: No. UA in office documented in chart History of Present Illness pt presents today with UTI symptoms that started today Review of Systems PHQ Score Initial Depression Screen Score: 1 ROS - Provider Constitutional: no fever, no chills, no sweats, no fatigue Respiratory: no shortness of breath, no cough, no orthopnea, no wheezing. Cardiovascular: no chest pain, no palpitations, no edema. Neurologic: no headache, no dizziness, no numbness, no weakness. : painful, frequent urination Physical Exam Vitals & Measurements HR: 88(Peripheral) RR: 18 BP: 138/72 SpO2: 96% HT: 68 in HT: 172 cm WT: 122.9 kg WT: 270.38 lb BMI: 41.54 General: alert, no acute distress ENMT: oral mucosa moist, no pharyngeal erythema or exudate Cardiovascular: regular rate and rhythm, normal peripheral perfusion Respiratory: Lungs CTA, respirations non labored Extremities: no deformity, no trauma Neurological: oriented x 4, LOC appropriate for age, CN II-XII intact, motor strength equal & normal bilaterally, speech normal Assessment/Plan 1. Urinary tract infection (N39.0: Urinary tract infection, site not specified) pt presents today with dysuria, frequency, and urgency this morning. started AZO but it is not helping.pt was able to give a sample but it is discolored due to taking AZO. will send for culture. was positive for blood. will order cipro and wait for culture results. all questions answered. RTC as needed Ordered: ciprofloxacin, 500 mg = 1 tab(s), Oral, q12hr, X 7 day(s), # 14 tab(s), Refills(s) 0, Pharmacy: [id number], 172, cm, 08/21/22 14:35:00 EDT, Height/Length Dosing, 122.9, kg, 08/21/22 14:35:00 EDT, Weight Dosing fluconazole, 150 mg = 1 tab(s), Oral, Once, # 1 tab(s), Refills(s) 1, [id number] 172, cm, 08/21/22 14:35:00 EDT, Height/Length Dosing, 122.9, kg, 08/21/22 14:35:00 EDT, Weight Dosing Urine Culture 2. Antibiotic-induced yeast infection (B37.9: Candidiasis, unspecified) pt gets yest infections with antibiotics. will send diflucan Ordered: ciprofloxacin, 500 mg = 1 tab(s), Oral, q12hr, X 7 day(s), # 14 tab(s), Refills(s) 0, [id number], 172, cm, 08/21/22 14:35:00 EDT, Height/Length Dosing, 122.9, kg, 08/21/22 14:35:00 EDT, Weight Dosing fluconazole, 150 mg = 1 tab(s), Oral, Once, # 1 tab(s), Refills(s) 1, Pharmacy: [id number], 172, cm, 08/21/22 14:35:00 EDT, Height/Length Dosing, 122.9, kg, 08/21/22 14:35:00 EDT, Weight Dosing Urine Culture Follow-up No qualifying data available Problem List/Past Medical History Ongoing Antibiotic-induced yeast infection Chronic bilateral low back pain without sciatica Chronic frontal sinusitis Excessive dietary caloric intake GERD without esophagitis Urinary tract infection Historical No qualifying data Procedure/Surgical History Bilateral segmental tubal excision and ligation by endoscopy (12/04/2021), Salpingectomy (12/04/2021), section (07/20/2015), Lumpectomy of left breast (2010), Tonsillectomy (2002). Medications Albuterol (Eqv-ProAir HFA) 90 mcg/inh inhalation aerosol, 2 puff(s), Inhalation, q6hr albuterol 0.083% Inh Negrita 3 mL, 2.5 mg= 3 mL, Inhalation, q6hr, 12 refills Cipro 500 mg Tab, 500 mg= 1 tab(s), Oral, q12hr cyclobenzaprine 10 mg Tab, 10 mg= 1 tab(s), Oral, TID, PRN Diflucan 150 mg Tab, 150 mg= 1 tab(s), Oral, Once, 1 refills Ozempic 2 mg/3 mL (0.25 mg or 0.5 mg dose) subcutaneous solution, 0.25 mg, SubCutaneous, qWeek Pepcid 20 mg Tab, 20 mg= 1 tab(s), Oral, BID Zofran ODT 4 mg Tab-Dis, 4 mg= 1 tab(s), Oral, Once Zyrtec-D oral tablet, extended release, 1 tab(s), Oral, q24hr Allergies aspirin (Anaphylactic reaction) Social History Alcohol - Denies Alcohol Use, 06/28/2021 Household alcohol concerns: No., 06/12/2022 Substance Abuse - Denies Substance Abuse, 06/28/2021 Household substance abuse concerns: No., 06/12/2022 Tobacco - High Risk, 06/12/2022 Former smoker, quit more than 30 days ago Tobacco Use:. Smokeless tobacco user within last 30 days, Current vaping or e-cigarette use Smokeless Tobacco Use:. Cigarettes, Vaping, Ready to change: No. Yes, 08/21/2022 Family History Alcoholism: Father. Hypothyroidism: Mother. Primary malignant neoplasm of female breast: Mother. Immunizations Vaccine Date Status SARS-CoV-2 (COVID-19) mRNA-1273 vaccine 01/10/2022 Recorded influenza virus vaccine, inactivated 12/2021 Recorded SARS-CoV-2 (COVID-19) mRNA-1273 vaccine 12/23/2020 Recorded influenza virus vaccine, inactivated 11/26/2020 Recorded SARS-CoV-2 (COVID-19) mRNA-1273 vaccine 04/08/2020 Recorded SARS-CoV-2 (COVID-19) mRNA-1273 vaccine 03/11/2020 Recorded human papillomavirus vaccine (more content not included)... Normal [facility] Comment on above: Result Comment: Elec tronically Signed By: Kathryn Fall.porsche\Date and Time Signed: 08/21/22 15:17 EDT Family Medicine Office/Clini c Noteon 07-19-2022 Family Medicine Office/Clinic Note HPI Staff One month follow up weight and restart of Ozempic Weight management Sleeping well:No, trouble falling asleep and staying asleep Chest pain:No Tremors:No Headaches:No Heart fluttering:No Blurred Vision:No weight last visit: 115.2kg/253.44lbs weight this visit: 120kg/264lbs History of Present Illness Caroline Davis is a 32-year-old female who presents today for a follow-up evaluation of chronic frontal sinusitis. She has an appointment with ENT at the end of 08/2022. She is still experiencing congestion. She is still taking Zyrtec, Claritin-D and as needed Sudafed. She is currently taking Ozempic 0.25 mg for weight loss. She states that her diet and exercise have not been going great. She has been stressed from work. Review of Systems PHQ Score Initial Depression Screen Score: 0 Physical Exam Vitals & Measurements HR: 99(Peripheral) BP: 140/74 SpO2: 97% HT: 69 in HT: 175 cm WT: 120 kg WT: 264 lb BMI: 39.18 General: alert, no acute distress Cardiovascular: regular rate and rhythm, normal peripheral perfusion Respiratory: Lungs CTA, respirations non labored Extremities: no deformity, no trauma Neurological: oriented x 4, LOC appropriate for age, CN II-XII intact, motor strength equal & normal bilaterally, speech normal Assessment/Plan We will see the patient back in 2 months. 1. Chronic frontal sinusitis (J32.1: Chronic frontal sinusitis) Patient has an appointment with ENT next month. We will continue to use antihistamines to help. 2. Excessive dietary caloric intake (R63.2: Polyphagia) Patient continues to gain weight. We will increase the Ozempic to 0.5 mg to see if this will help. 3. Chronic bilateral low back pain without sciatica (M54.50: Low back pain, unspecified) At this time, the patient continues to use muscle relaxers to help with this as needed. Nothing new with this and patient continues to have intermittent pain. 4. GERD without esophagitis (K21.9: Gastro-esophageal reflux disease without esophagitis) We will refill the famotidine and the Zofran to help as needed. 5. BMI 39.0-39.9,adult (Z68.39: Body mass index [BMI] 39.0-39.9, adult) Other chronic pain (G89.29: Other chronic pain) ATTESTATION: Documentation services were performed after patient or guardian consented to allow Cristina Nelson Myranda to record this visit. MALENA prevention specialist and provider reviewed before signing. MALENA: Sanju Salinas Follow-up No qualifying data available Problem List/Past Medical History Ongoing Chronic bilateral low back pain without sciatica Chronic frontal sinusitis Excessive dietary caloric intake GERD without esophagitis Historical No qualifying data Procedure/Surgical History Bilateral segmental tubal excision and ligation by endoscopy (12/04/2021), Salpingectomy (12/04/2021), section (07/20/2015), Lumpectomy of left breast (2010), Tonsillectomy (2002). Medications albuterol 0.083% Inh Negrita 3 mL, 2.5 mg= 3 mL, Inhalation, q6hr, 12 refills cyclobenzaprine 10 mg Tab, 10 mg= 1 tab(s), Oral, TID, PRN Ozempic 2 mg/3 mL (0.25 mg or 0.5 mg dose) subcutaneous solution, 0.25 mg, SubCutaneous, qWeek Pepcid 20 mg Tab, 20 mg= 1 tab(s), Oral, BID Zofran ODT 4 mg Tab-Dis, 4 mg= 1 tab(s), Oral, Once Zyrtec-D oral tablet, extended release, 1 tab(s), Oral, q24hr Allergies aspirin (Anaphylactic reaction) Social History Alcohol - Denies Alcohol Use, 06/28/2021 Household alcohol concerns: No., 06/12/2022 Substance Abuse - Denies Substance Abuse, 06/28/2021 Household substance abuse concerns: No., 06/12/2022 Tobacco - High Risk, 06/12/2022 Former smoker, quit more than 30 days ago Tobacco Use:. Smokeless tobacco user within last 30 days, Current vaping or e-cigarette use Smokeless Tobacco Use:. Cigarettes, Vaping, Ready to change: No. Yes, 2022 Family History Alcoholism: Father. Hypothyroidism: Mother. Primary malignant neoplasm of female breast: Mother. Immunizations Vaccine Date Status SARS-CoV-2 (COVID-19) mRNA-1273 vaccine 01/10/2022 Recorded influenza virus vaccine, inactivated 12/2021 Recorded SARS-CoV-2 (COVID-19) mRNA-1273 vaccine 12/23/2020 Recorded influenza virus vaccine, inactivated 11/26/2020 Recorded SARS-CoV-2 (COVID-19) mRNA-1273 vaccine 04/08/2020 Recorded SARS-CoV-2 (COVID-19) mRNA-1273 vaccine 03/11/2020 Recorded human papillomavirus vaccine 11/23/2019 Recorded human papillomavirus vaccine 01/09/2019 Recorded human papillomavirus vaccine 11/01/2018 Recorded measles/mumps/rubella virus vaccine 09/24/1997 Recorded DTaP, unspecified formulation 09/24/1997 Recorded Hib, unspecified formulation 04/25/1994 Recorded DTaP, unspecified formulation 04/25/1994 Recorded measles/mumps/rubella virus vaccine 08/11/1993 Recorded hepatitis B pediatric vaccine 08/11/1993 Recorded Hib, unspecified formulation 04/26/1993 Recorded hepatitis B pediatric vaccine 01/04/1993 Recorded Hib, unspecified formulation 01/04/19 (more content not included)... [facility] Comment on above: Result Comment: Elec tronically Signed By: Tom hWyte MD\.br\Date and Time Signed: 07/19/22 12:48 EDT\.br\Electronically Co-Signed By: Sanju Salinas\.br\Date and Time Co-Signed: 07/18/22 18:21 EDT Ambulatory Visit Summaryon 0 2022 Ambulatory Visit Summary CAROLINE DAVIS :1990 Visit Date:2022 Ambulatory Visit Instructions Your Diagnosis Chronic frontal sinusitis Excessive dietary caloric intake Chronic bilateral low back pain without sciatica GERD without esophagitis BMI 39.0-39.9,adult Other chronic pain Your Care Team Attending Physician - Tom Whyte MD Primary Care Physician - Traci Man MD This Is Your Medications List cyclobenzaprine (cyclobenzaprine 10 mg Tab) famotidine (Pepcid 20 mg Tab) ondansetron (Zofran ODT 4 mg Tab-Dis) semaglutide (Ozempic 2 mg/3 mL (0.25 mg or 0.5 mg dose) subcutaneous solution) Contact prescribing physician if questions or concerns albuterol (albuterol 0.083% Inh Negrita 3 mL) cetirizine-pseudoephe drine (Zyrtec-D oral tablet, extended release) [Image Removed: STOP]Stop taking these medications albuterol (Albuterol (Eqv-ProAir HFA) 90 mcg/inh inhalation aerosol) Procedures Performed Bilateral segmental tubal excision and ligation by endoscopy (12/04/2021), Salpingectomy (12/04/2021), section (07/20/2015), Lumpectomy of left breast (2010), Tonsillectomy (2002). Discharge Vitals Heart Rate (Peripheral) 99 Blood Pressure 140/74 Height 175 cm Height 69 in Weight 120 kg Weight 264 lb BMI 39.18 What to do next Scheduled Follow-Up Appointments Saturday 3:20 PM EDT With: Tom Whyte MD Where: [facility] Ambulatory Visit Summary CAROLINE DAVIS :1990 Visit Date:2022 Ambulatory Visit Instructions Your Diagnosis Chronic frontal sinusitis Excessive dietary caloric intake Chronic bilateral low back pain without sciatica GERD without esophagitis BMI 39.0-39.9,adult Other chronic pain Your Care Team Attending Physician - Tom Whyte MD Primary Care Physician - Magad HOUSTON, Traci Flynn This Is Your Medications List cyclobenzaprine (cyclobenzaprine 10 mg Tab) famotidine (Pepcid 20 mg Tab) ondansetron (Zofran ODT 4 mg Tab-Dis) semaglutide (Ozempic 2 mg/3 mL (0.25 mg or 0.5 mg dose) subcutaneous solution) Contact prescribing physician if questions or concerns albuterol (albuterol 0.083% Inh Negrita 3 mL) cetirizine-pseudoephe drine (Zyrtec-D oral tablet, extended release) [Image Removed: STOP]Stop taking these medications albuterol (Albuterol (Eqv-ProAir HFA) 90 mcg/inh inhalation aerosol) Procedures Performed Bilateral segmental tubal excision and ligation by endoscopy (12/04/2021), Salpingectomy (12/04/2021), section (07/20/2015), Lumpectomy of left breast (2010), Tonsillectomy (2002). Discharge Vitals Heart Rate (Peripheral) 99 Blood Pressure 140/74 Height 175 cm Height 69 in Weight 120 kg Weight 264 lb BMI 39.18 What to do next Scheduled Follow-Up Appointments Saturday 3:20 PM EDT With: Pato HOUSTON, Tom Garcia Where: [facility] Formson 06-29-2022 Forms [id number] .[id number]:127 Normal [facility] Formson 06-26-2022 Forms [id number] .[id number]:127 Normal [facility] Family Medicine Office/Clini c Noteon 06-13-2022 Family Medicine Office/Clinic Note HPI Staff Caroline is a 31 year old female who presents today for a 6 month office visit. Weight management Pt stopped taking Ozempic due to side effects a month and a half ago. She had the taste of sulfur constantly in her mouth and such bad acid reflux that she was vomiting nearly daily. She wasn't able to drink water without getting heartburn. Weight last visit: 113.9kg/250.5 lbs Weight this visit: 115.2 Sleeping well:no, having troubles falling asleep and staying asleep Chest pain:No Tremors:No Headaches:No Heart fluttering:No Blurred Vision:No She would like to discuss restarting Ozempic on a lower dose as pt feels she did okay on the 1mg but not the 2mg. Here for follow up on GERD. Pt stopped taking omeprazole 40mg QD because she hasn't felt like she's needed to. Pt states that Pepcid fixes her heartburn issues. Are you compliant with your medications? no Do you have side effects from the medication? no Are you compliant with your diet? No pt has not noted anything that aggravates the GERD or prevents it from occurring. Do you have any of the following symptoms? Melena? no Dysphagia? Pt states right now it feels like a ball is in her throat. Weight loss? no Persistent vomiting? only when taking the Ozempic 2mg Pap: about a year ago Last labs: July of 2021 Pt states she is having sinus pressure since Saturday evening, she feels as though someone is pushing their thumbs behind her eyes . Pt's throat is scratchy and feels as though there is a ball of something in there . If she sits or stands too fast or bends too fast she gets light headed. History of Present Illness Caroline Davis is a 31-year-old female who presents today for a follow-up evaluation of GERD. Caroline states that she is not currently having acid reflux. She is not taking Pepcid currently. She has been off of the Ozempic for 1.5 months. The patient states that her back is still sore after work, but it is not as bad as it was. Caroline has been experiencing sinus pressure since Saturday06/10/2022. She states that she has been sick 3 times since the beginning of 05/2022. She states that she is struggling with allergies. 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 She states that she had COVID-19 in 10/2020. She states that since then, she has been sick once a month with something else. She states that it is getting increasingly frequent. She states that she is in trouble at work over it. She states that she needs documentation to give to her boss that shows she is trying to solve the issue. She expresses concerns about being fired for calling out of work. She states that she has been warned about this issue. Caroline states that she needs a refill on her inhaler. She states that she would like a nebulizer form because her lungs have been aggravated. She does not have a nebulizer, but she is willing to purchase one from [employer]. Review of Systems PHQ Score Initial Depression Screen Score: 0 Physical Exam Vitals & Measurements T: 36.8 ?C(Oral) HR: 92(Peripheral) BP: 128/72 SpO2: 97% HT: 69 in HT: 175 cm WT: 115.2 kg WT: 253.44 lb BMI: 37.62 General: alert, no acute distress Cardiovascular: regular rate and rhythm, normal peripheral perfusion Respiratory: Lungs CTA, respirations non labored Extremities: no deformity, no trauma Neurological: oriented x 4, LOC appropriate for age, CN II-XII intact, motor strength equal & normal bilaterally, speech normal Assessment/Plan 1. GERD without esophagitis (K21.9: Gastro-esophageal reflux disease without esophagitis) The patient states she is not having any symptoms currently and that she has been off the Ozempic. The patient would like to restart the Ozempic, so we will need to have the patient restart the famotidine. The patient has been off the omeprazole. We will have the patient follow up in 1 month to make sure that her acid reflux is well controlled. 2. Excessive dietary caloric intake (R63.2: Polyphagia) The patient has been off the Ozempic for about 1.5 months. She would like to go back on it. We will restart it at a lower dose. We will recheck weight loss in 1 month. 3. Chronic bilateral low back pain without sciatica (M54.50: Low back pain, unspecified) The patient is doing well with the weight loss. Encouraged diet and exercise. 4. Chronic sinusitis (J32.9: Chronic sinusitis, unspecified) This has been a recurrent issue. The patient states since the last month, she is worried about work. We will do a Medrol Dosepak at this time, and we will have the patient see Dr. Man with ENT. 5. Adult BMI 37.0-37.9 kg/sq m (Z68.37: Body mass index [BMI] 37.0-37.9, adult) BMI education given. Discussed diet and exercise. 6. Current every day vaping (Z72.89: Other problems related to lifestyle) Encouraged the patient not to vape. This could be the cause of the recurrent sinus issues. We will recheck the patient in 1 month. Documentation services were performed after patie (more content not included)... Normal [facility] Comment on above: Result Comment: Elec tronically Signed By: Pato HOUSTON, Tom Garcia\.br\Date and Time Signed: 06/13/22 11:10 EDT\.br\Electronically Co-Signed By: Rena Annbr\Date and Time Co-Signed: 06/12/22 15:01 EDT Physician Referralon 023 Physician Referral [id number] .[id number]:127 Normal [facility] Ambulatory Visit Summaryon 0 06-12-2022 Ambulatory Visit Summary CAROLINE DAVIS :1990 Visit Date:06/12/2022 Ambulatory Visit Instructions Your Diagnosis GERD without esophagitis Excessive dietary caloric intake Chronic bilateral low back pain without sciatica Chronic sinusitis Adult BMI 37.0-37.9 kg/sq m Current every day vaping Your Care Team Attending Physician - Pato HOUSTON, Tom Garcia Primary Care Physician - Magda HOUSTON, Traci Flynn This Is Your Medications List albuterol (albuterol 0.083% Inh Negrita 3 mL) methylPREDNISolone (Medrol 4 mg Tab) semaglutide (Ozempic 2 mg/3 mL (0.25 mg or 0.5 mg dose) subcutaneous solution) Contact prescribing physician if questions or concerns albuterol (Albuterol (Eqv-ProAir HFA) 90 mcg/inh inhalation aerosol) cetirizine-pseudoephe drine (Zyrtec-D oral tablet, extended release) cyclobenzaprine (cyclobenzaprine 10 mg Tab) famotidine (Pepcid 20 mg Tab) ondansetron (Zofran ODT 4 mg Tab-Dis) [Image Removed: STOP]Stop taking these medications cetirizine (cetirizine 10 mg oral tablet, dispersible) omeprazole (omeprazole 40 mg Cap-DR) Procedures Performed Bilateral segmental tubal excision and ligation by endoscopy (12/04/2021), Salpingectomy (12/04/2021), section (07/20/2015), Lumpectomy of left breast (2010), Tonsillectomy (2002). Discharge Vitals Temperature (Oral) 36.8 ?C Heart Rate (Peripheral) 92 Blood Pressure 128/72 Height 175 cm Height 69 in Weight 115.2 kg Weight 253.44 lb BMI 37.62 What to do next Scheduled Follow-Up Appointments Saturday. 2022 4:40 PM EDT With: Pato HOUSTON, Tom Garcia Where: [facility] Invalid Interpretation Code Excessive dietary caloric intake [facility] Provider Letteron 06-12-2022 Provider Letter June 12, 2022 CAROLINE DAVIS [address] [place] [address] CAROLINE DAVIS 1990 To Whom It May Concern, Caroline is being treated for chronic condition, referral will be made to ENT, if you have any questions please contact my office. Date of Illness: From: _ To: _ May Return to Work On: Restrictions: _ Comments: _ Sincerely, [facility] [address] [place] [address] Normal [facility] XR RIBS RT PA Tianna 3 XR RIBS RT PA CH EXAM: Right ribs HISTORY: Pain after falling down 3 steps last night. COMPARISON STUDY: Chest x-ray dated 06/16/2020. TECHNIQUE: 8 views of the right ribs and chest were obtained. FINDINGS: There is no evidence of fracture or dislocation. There are no suspicious bone lesions. Soft tissues are normal. The lungs are well-inflated and clear. The heart and mediastinum are normal. IMPRESSION: No acute findings. Electronically authenticated by: HAYDER WRIGHT Date: 2022-05-16 10:13 Normal [facility] XR SHOULDER RT 2V or >on XR SHOULDER RT 2V or > EXAM: XR SHOULDER RT 2V or > HISTORY: Pain of right shoulder joint. Fall down steps last night. COMPARISON: None. TECHNIQUE: 3 views of the right shoulder. FINDINGS: Bones: No acute or aggressive appearing bony lesion. Joints: Normal alignment. No effusion. No significant degenerative findings. Soft tissues: Unremarkable. IMPRESSION: Unremarkable examination. No evidence of fracture. Electronically authenticated by: MCKENZIE MADRID Date: 2022-05-16 09:15 Normal [facility] URon 12-04-2021 , QUAL Negative Normal NEGATIVE [facility] Comment on above: Performed By: #### P REGU #### [facility] [address] [place] [address] Dr. Michele Prado Covid-19 PCR ([facility])on 11-03 SARS-CoV-2 (COVID-19) RNA JOSE+probe Ql (Unsp spec) Not detected Normal NOT DETECTED [facility] Comment on above: Result Comment: This test is not yet approved or cleared by the [place] FDA. When there are no FDA-approved or cleared tests available, and other criteria are met, FDA can make tests available under an emergency access mechanism called an Emergency Use Authorization (EUA). The EUA for this test is supported by the Access Liaison of Health and Human Service's (HHS's) declaration that circumstances exist to justify the emergency use of in vitro diagnostics for the detection and/or diagnosis of the virus that causes COVID-19. This EUA will remain in effect (meaning this test can be used) for the duration of the COVID-19 declaration justifying emergency of IVDs, unless it is terminated or revoked by FDA (after which the test may no longer be used). When diagnostic testing is negative, the possibility of a false negative should be considered in the context of a patient's recent exposures and the presence of clinical signs and symptoms consistent with SARS-CoV-2. Performed By: #### P REGU #### [facility] [address] [place] [address] Dr. Michele Prado CBC AUTO DIFFon 11-24-2021 BASO # 0.1 103/ul Normal 0.0-0.1 [facility] Comment on above: Performed By: #### C BC #### [facility] [address] [place] [address] Dr. Michele Prado Basophils/100 WBC (Bld) 0.5 % Normal 0.2-2.0 [facility] Comment on above: Performed By: #### C BC #### [facility] [address] [place] [address] Dr. Michele Prado EO # 0.3 103/ul Normal 0.0-0.7 [facility] Comment on above: Performed By: #### C BC #### [facility] [address] [place] [address] Dr. Michele Prado Eosinophils/100 WBC (Bld) 2.8 % Normal 0.9-7.0 [facility] Comment on above: Performed By: #### C BC #### [facility] [address] [place] [address] Dr. Michele Prado Erythrocyte distribution width (RBC) [Ratio] 13.4 % Normal 11.0-15.0 [facility] Comment on above: Performed By: #### C BC #### [facility] [address] [place] [address] Dr. Michele Prado Hematocrit (Bld) [Volume fraction] 40.2 % Normal 36.0-48.0 [facility] Comment on above: Performed By: #### C BC #### [facility] [address] [place] [address] Dr. Michele Prado Hemoglobin (Bld) [Mass/Vol] 13.0 g/dL Normal 12.0-16.0 [facility] Comment on above: Performed By: #### C BC #### [facility] [address] [place] [address] Dr. Michele Prado IG # 0.03 10e3/ul Normal 0.00-0.03 [facility] Comment on above: Performed By: #### C BC #### [facility] [address] [place] [address] Dr. Michele Prado IG % 0.3 % Normal 0.0-0.5 [facility] Comment on above: Performed By: #### C BC #### [facility] [address] [place] [address] Dr. Michele Prado LYMPH # 2.3 103/ul Normal 1.2-3.8 [facility] Comment on above: Performed By: #### C BC #### [facility] [address] [place] [address] Dr. Michele Prado Lymphocytes/100 WBC (Bld) 21.5 % Normal 20.5-60.0 [facility] Comment on above: Performed By: #### C BC #### [facility] [address] [place] [address] Dr. Michele Prado MANUAL DIFF REQ NO Normal [facility] Comment on above: Performed By: #### C BC #### [facility] [address] [place] [address] Dr. Michele Prado MCH (RBC) [Entitic mass] 27.9 pg Normal 26.7-34.0 [facility] Comment on above: Performed By: #### C BC #### [facility] [address] [place] [address] Dr. Michele Prado MCHC (RBC) [Mass/Vol] 32.3 g/dL Normal 29.9-35.2 [facility] Comment on above: Performed By: #### C BC #### [facility] [address] [place] [address] Dr. Michele Prado MCV (RBC) [Entitic vol] 86.3 fL Normal 81.0-99.0 [facility] Comment on above: Performed By: #### C BC #### [facility] [address] [place] [address] Dr. Michele Prado MONO # 0.7 103/ul Normal 0.3-0.8 [facility] Comment on above: Performed By: #### C BC #### [facility] [address] [place] [address] Dr. Michele Prado Monocytes/100 WBC (Bld) 6.8 % Normal 1.7-12.0 [facility] Comment on above: Performed By: #### C BC #### [facility] [address] [place] [address] Dr. Michele Prado NEUT # 7.4 103/ul Critically high 1.4-6.5 [facility] Comment on above: Performed By: #### C BC #### [facility] [address] [place] [address] Dr. Michele Prado Neutrophils/100 WBC (Bld) 68.1 % Normal 43.0-75.0 [facility] Comment on above: Performed By: #### C BC #### [facility] [address] [place] [address] Dr. Michele Prado Platelet mean volume (Bld) [Entitic vol] 10.2 fL Normal 9.5-13.5 [facility] Comment on above: Performed By: #### C BC #### [facility] [address] [place] [address] Dr. Michele Prado PLT 329 103/ul Normal 150-450 [facility] Comment on above: Performed By: #### C BC #### [facility] [address] [place] [address] Dr. Michele Prado RBC 4.66 106/ul Normal 4.20-5.40 [facility] Comment on above: Performed By: #### C BC #### [facility] [address] [place] [address] Dr. Michele Prado WBC 10.8 103/ul Normal 4.0-11.0 [facility] Comment on above: Performed By: #### C BC #### [facility] [address] [place] [address] Dr. Michele Prado Covid-19 PCR ([facility])on SARS-CoV-2 (COVID-19) RNA JOSE+probe Ql (Unsp spec) Not detected Normal NOT DETECTED [facility] Comment on above: Result Comment: When diagnostic testing is negative, the possibility of a false negative should be considered in the context of a patient's recent exposures and the presence of clinical signs and symptoms consistent with SARS-CoV-2. This test is not yet approved or cleared by the [place] FDA. When there are no FDA-approved or cleared tests available, and other criteria are met, FDA can make tests available under an emergency access mechanism called an Emergency Use Authorization (EUA). The EUA for this test is supported by the Access Liaison of Health and Human Service's declaration that circumstances exist to justify the emergency use of in vitro diagnostics for the detection and/or diagnosis of the virus that causes COVID-19. This EUA will remain in effect for the duration of the COVID-19 declaration justifying emergency of IVDs, unless it is terminated or revoked by the FDA (after which the test may no longer be used). Performed By: #### P REGU #### [facility] [address] [place] [address] Dr. Michele Prado ER URINE PROFILEon 2 Bilirubin Ql (U) Negative Normal NEGATIVE [facility] Comment on above: Performed By: #### C BC #### [facility] [address] [place] [address] Dr. Michele Prado Clarity (U) CLEAR Normal CLEAR [facility] Comment on above: Performed By: #### C BC #### [facility] [address] [place] [address] Dr. Michele Prado Color (U) YELLOW Normal YELLOW [facility] Comment on above: Performed By: #### C BC #### [facility] [address] [place] [address] Dr. Michele TOLLIVER A micrscopic examination will be performed if indicated. Normal [facility] Comment on above: Performed By: #### C BC #### [facility] [address] [place] [address] Dr. Michele Prado Glucose Ql (U) Negative Normal NEGATIVE [facility] Comment on above: Performed By: #### C BC #### [facility] [address] [place] [address] Dr. Michele Prado Hemoglobin Ql (U) Negative Normal NEGATIVE [facility] Comment on above: Performed By: #### C BC #### [facility] [address] [place] [address] Dr. Michele Prado Ketones Ql (U) Negative Normal NEGATIVE [facility] Comment on above: Performed By: #### C BC #### [facility] [address] [place] [address] Dr. Michele Prado LEUKOCYTES Negative Normal NEGATIVE [facility] Comment on above: Performed By: #### C BC #### [facility] [address] [place] [address] Dr. Michele Prado Nitrite Ql (U) Negative Normal NEGATIVE [facility] Comment on above: Performed By: #### C BC #### [facility] [address] [place] [address] Dr. Michele Prado pH (U) 7.5 [pH] Normal 5-9 [facility] Comment on above: Performed By: #### C BC #### [facility] [address] [place] [address] Dr. Michele Prado SPEC GRAVITY 1.015 Normal 1.005-<=1.02 5 [facility] Comment on above: Performed By: #### C BC #### [facility] [address] [place] [address] Dr. Michele Prado UA PROTEIN Negative Normal NEGATIVE/ TRACE [facility] Comment on above: Performed By: #### C BC #### [facility] [address] [place] [address] Dr. Michele Prado UR MICRO IND NOT INDICATED Normal [facility] Comment on above: Performed By: #### C BC #### [facility] [address] [place] [address] Dr. Michele Prado Urobilinogen Qn (U) 0.2 {Suman'U}/dL Normal 0.2 - 1. 0 [facility] Comment on above: Performed By: #### C BC #### [facility] [address] [place] [address] Dr. Michele Prado URon 10-23-2021 , QUAL Negative Normal NEGATIVE [facility] Comment on above: Performed By: #### C BC #### [facility] [address] [place] [address] Dr. Michele Prado CBC W MANUAL DIFFon 09-03-19 22 ATYPICAL LYMPH # Normal [facility] Comment on above: Performed By: #### C BCMAN #### [facility] [address] [place] [address] Dr. Michele Prado ATYPICAL LYMPH % Normal [facility] Comment on above: Performed By: #### C BCMAN #### [facility] [address] [place] [address] Dr. Michele Prado BAND # Normal 0.0-0.3 [facility] Comment on above: Performed By: #### C BCMAN #### [facility] [address] [place] [address] Dr. Michele Prado BAND % Normal 0-5 [facility] Comment on above: Performed By: #### C BCANGIE #### [facility] [address] [place] [address] Dr. Michele Prado BASOM # 0.00 103/ul Normal 0.00-0.10 [facility] Comment on above: Performed By: #### C BCANGIE #### [facility] [address] [place] [address] Dr. Michele Prado BASOM % 0.0 % Critically low 0.2-2.0 [facility] Comment on above: Performed By: #### C BCANGIE #### [facility] [address] [place] [address] Dr. Michele Prado BLAST # Normal [facility] Comment on above: Performed By: #### C CARMENZA #### [facility] [address] [place] [address] Dr. Michele Prado BLAST % Normal [facility] Comment on above: Performed By: #### C BCANGIE #### [facility] [address] [place] [address] Dr. Michele Prado CORRECTED WBC Normal 4.0-11.0 [facility] Comment on above: Performed By: #### C BCANGIE #### [facility] [address] [place] [address] Dr. Michele Prado EOS # 0.00 103/ul Normal 0.00-0.70 [facility] Comment on above: Performed By: #### C BCANGIE #### [facility] [address] [place] [address] Dr. Michele Prado EOS% 0.0 % Critically low 0.9-7.0 [facility] Comment on above: Performed By: #### C BCANGIE #### [facility] [address] [place] [address] Dr. Michele Prado HCT 39.5 % Normal 36.0-48.0 [facility] Comment on above: Performed By: #### C CARMENZA #### [facility] [address] [place] [address] Dr. Michele Prado HGB 12.7 g/dl Normal 12.0-16.0 [facility] Comment on above: Performed By: #### C CARMENZA #### [facility] [address] [place] [address] Dr. Michele Prado LYMPHM # 0.81 103/ul Critically low 1.20-3.80 [facility] Comment on above: Performed By: #### C CARMENZA #### [facility] [address] [place] [address] Dr. Michele Prado LYMPHM% 7.0 % Critically low 20.5-60.0 [facility] Comment on above: Performed By: #### C CARMENZA #### [facility] [address] [place] [address] Dr. Michele Prado MCH 27.5 pg Normal 26.7-34.0 [facility] Comment on above: Performed By: #### Diego HERR #### [facility] [address] [place] [address] Dr. Michele Prado MCHC 32.2 g/dl Normal 29.9-35.2 [facility] Comment on above: Performed By: #### C CARMENZA #### [facility] [address] [place] [address] Dr. Michele Prado MCV 85.7 fL Normal 81.0-99.0 [facility] Comment on above: Performed By: #### Diego HERR #### [facility] [address] [place] [address] Dr. Michele Prado METAMYELOCYTE # Normal [facility] Comment on above: Performed By: #### C CARMENZA #### [facility] [address] [place] [address] Dr. Michele Prado METAMYELOCYTE % Normal [facility] Comment on above: Performed By: #### C CARMENZA #### [facility] [address] [place] [address] Dr. Michele Prado MONOM# 0.81 103/ul Critically high 0.30-0.80 [facility] Comment on above: Performed By: #### C CARMENZA #### [facility] [address] [place] [address] Dr. Michele Prado MONOM% 7.0 % Normal 1.7-12.0 [facility] Comment on above: Performed By: #### C CARMENZA #### [facility] [address] [place] [address] Dr. Michele Prado MPV 10.0 fL Normal 9.5-13.5 [facility] Comment on above: Performed By: #### C CARMENZA #### [facility] [address] [place] [address] Dr. Michele Prado MYELOCYTE # Normal [facility] Comment on above: Performed By: #### C CARMENZA #### [facility] [address] [place] [address] Dr. Michele Prado MYELOCYTE % Normal [facility] Comment on above: Performed By: #### Diego HERR #### [facility] [address] [place] [address] Dr. Michele Prado NRBC Normal [facility] Comment on above: Performed By: #### C CARMENZA #### [facility] [address] [place] [address] Dr. Michele Prado PLT 295 103/ul Normal 150-450 [facility] Comment on above: Performed By: #### C CARMENZA #### [facility] [address] [place] [address] Dr. Michele Prado RBC 4.61 106/ul Normal 4.20-5.40 [facility] Comment on above: Performed By: #### C CARMENZA #### [facility] [address] [place] [address] Dr. Michele Prado RDW 13.2 % Normal 11.0-15.0 [facility] Comment on above: Performed By: #### C CARMENZA #### [facility] [address] [place] [address] Dr. Michele Prado SEG # 9.89 103/ul Critically high 1.40-6.50 [facility] Comment on above: Performed By: #### C CARMENZA #### [facility] [address] [address] [address] Michele Prado SEG % 86.0 % Critically high 43.0-75.0 [facility] Comment on above: Performed By: #### C CARMENZA #### [facility] [address] [address] [address] Michele Prado WBC 11.5 103/ul Critically high 4.0-11.0 [facility] Comment on above: Performed By: #### C CARMENZA #### [facility] [address] ABD/PELV W CONon 09-03-[address] ABD/PELV W CON EXAMINATION: CT ABD/PELV W CON HISTORY: GENERALIZED ABDOMINAL PAIN COMPARISON: CT abdomen and pelvis dated 06/19/2021. TECHNIQUE: CT of the abdomen and pelvis was performed after the uneventful intravenous administration of 75 mL of Omnipaque 300. Coronal and sagittal reformats were performed. Dose reduction techniques were achieved by using automated exposure control and/or adjustment of mA and/or kV according to patient size and/or use of iterative reconstruction technique. FINDINGS: Lower chest: Normal. ABDOMEN: The liver and spleen are normal. There is a splenule anterior to the spleen. The pancreas, gallbladder, adrenal glands and kidneys are normal. There is no hydronephrosis. The abdominal aorta is normal. There are no enlarged lymph nodes by CT size criteria. The stomach is within normal limits. The small bowel and large bowel are normal in caliber. There is no free air or obstruction. The appendix is normal. There is no ascites. Pelvis: The uterus and ovaries are normal in size. The urinary bladder is normal. There is no free fluid in the pelvis. No acute osseous abnormality. IMPRESSION: No acute inflammatory process in the abdomen or pelvis. No substantial change. Electronically authenticated by: [facility] Date: 2021-09-02 12:13 Normal [facility] CULTURE URINEon 09-02-2021 CULTURE URINE Culture Observations : No growth Normal [facility] Comment on above: Performed By: #### P REGU #### [facility] [address] [address] [address] Micheel Prado ER URINE PROFILEon 2 Bilirubin Ql (U) SMALL Abnormal NEGATIVE [facility] Comment on above: Performed By: #### C BC #### [facility] [address] [place] [address] Dr. Michele Prado Clarity (U) CLEAR Normal CLEAR [facility] Comment on above: Performed By: #### C BC #### [facility] [address] [place] [address] Dr. Michele Prado Color (U) DK. YELLOW Normal YELLOW [facility] Comment on above: Performed By: #### C BC #### [facility] [address] [place] [address] Dr. Michele TOLLIVER A micrscopic examination will be performed if indicated. Normal [facility] Comment on above: Performed By: #### C BC #### [facility] [address] [place] [address] Dr. Michele Prado Glucose Ql (U) Negative Normal NEGATIVE [facility] Comment on above: Performed By: #### C BC #### [facility] [address] [place] [address] Dr. Michele Prado Hemoglobin Ql (U) TRACE-INTACT Abnormal NEGATIVE [facility] Comment on above: Performed By: #### C BC #### [facility] [address] [place] [address] Dr. Michele Prado Ketones Ql (U) TRACE Abnormal NEGATIVE [facility] Comment on above: Performed By: #### C BC #### [facility] [address] [place] [address] Dr. Michele Prado LEUKOCYTES Negative Normal NEGATIVE [facility] Comment on above: Performed By: #### C BC #### [facility] [address] [place] [address] Dr. Michele Prado Nitrite Ql (U) Negative Normal NEGATIVE [facility] Comment on above: Performed By: #### C BC #### [facility] [address] [place] [address] Dr. Michele Prado pH (U) 5.5 [pH] Normal 5-9 [facility] Comment on above: Performed By: #### C BC #### [facility] [address] [place] [address] Dr. Michele Prado SPEC GRAVITY >=1.030 Abnormal 1.005-<=1.02 5 [facility] Comment on above: Performed By: #### C BC #### [facility] [address] [place] [address] Dr. Michele Prado UA PROTEIN Negative Normal NEGATIVE/ TRACE [facility] Comment on above: Performed By: #### C BC #### [facility] [address] [place] [address] Dr. Michele Prado UR MICRO IND INDICATED Normal [facility] Comment on above: Performed By: #### C BC #### [facility] [address] [place] [address] Dr. Michele Prado Urobilinogen Qn (U) 0.2 {Suman'U}/dL Normal 0.2 - 1. 0 [facility] Comment on above: Performed By: #### C BC #### [facility] [address] [place] [address] Dr. Michele Prado URon 09-02-2021 , QUAL Negative Normal NEGATIVE [facility] Comment on above: Performed By: #### C BC #### [facility] [address] [place] [address] Dr. Michele Prado URINE MICROSCOPIC ONLYon BACTERIA SMALL Abnormal NONE SEEN [facility] Comment on above: Performed By: #### C BC #### [facility] [address] [place] [address] Dr. Michele Prado Bacteria identified Cx Nom (U) INDICATED Normal [facility] Comment on above: Performed By: #### C BC #### [facility] [address] [place] [address] Dr. Michele Prado CAST NONE SEEN Normal NONE SEEN [facility] Comment on above: Performed By: #### C BC #### [facility] [address] [place] [address] Dr. Michele Prado Crystals LM Nom (Urine sed) NONE SEEN Normal NONE SEEN [facility] Comment on above: Performed By: #### C BC #### [facility] [address] [place] [address] Dr. Michele Prado Epithelial cells LM Ql (Urine sed) FEW Abnormal NONE SEEN /RARE [facility] Comment on above: Performed By: #### C BC #### [facility] [address] [place] [address] Dr. Michele Prado MUCOUS MODERATE Abnormal NONE SEEN [facility] Comment on above: Performed By: #### C BC #### [facility] [address] [place] [address] Dr. Michele Prado RBC 0-2 Normal 0-2 [facility] Comment on above: Performed By: #### C BC #### [facility] [address] [place] [address] Dr. Michele Prado WBC 0-2 Abnormal NONE SEEN [facility] Comment on above: Performed By: #### C BC #### [facility] [address] [place] [address] Dr. Michele Prado CBC AUTO DIFFon 07-06-2021 BASO # 0.0 103/ul Normal 0.0-0.1 [facility] Comment on above: Performed By: #### C BC #### [facility] [address] [place] [address] Dr. Michele Prado Basophils/100 WBC (Bld) 0.4 % Normal 0.2-2.0 [facility] Comment on above: Performed By: #### C BC #### [facility] [address] [place] [address] Dr. Michele Prado EO # 0.3 103/ul Normal 0.0-0.7 [facility] Comment on above: Performed By: #### C BC #### [facility] [address] [place] [address] Dr. Michele Prado Eosinophils/100 WBC (Bld) 2.8 % Normal 0.9-7.0 [facility] Comment on above: Performed By: #### C BC #### [facility] [address] [place] [address] Dr. Michele Prado Erythrocyte distribution width (RBC) [Ratio] 13.1 % Normal 11.0-15.0 [facility] Comment on above: Performed By: #### C BC #### [facility] [address] [place] [address] Dr. Michele Prado Hematocrit (Bld) [Volume fraction] 40.0 % Normal 36.0-48.0 [facility] Comment on above: Performed By: #### C BC #### [facility] [address] [place] [address] Dr. Michele Prado Hemoglobin (Bld) [Mass/Vol] 13.1 g/dL Normal 12.0-16.0 [facility] Comment on above: Performed By: #### C BC #### [facility] [address] [place] [address] Dr. Michele Prado IG # 0.04 10e3/ul Critically high 0.00-0.03 [facility] Comment on above: Performed By: #### C BC #### [facility] [address] [place] [address] Dr. Michele Prado IG % 0.4 % Normal 0.0-0.5 [facility] Comment on above: Performed By: #### C BC #### [facility] [address] [place] [address] Dr. Michele Prado LYMPH # 2.5 103/ul Normal 1.2-3.8 [facility] Comment on above: Performed By: #### C BC #### [facility] [address] [place] [address] Dr. Michele Prado Lymphocytes/100 WBC (Bld) 24.5 % Normal 20.5-60.0 [facility] Comment on above: Performed By: #### C BC #### [facility] [address] [place] [address] Dr. Michele Prado MANUAL DIFF REQ NO Normal [facility] Comment on above: Performed By: #### C BC #### [facility] [address] [place] [address] Dr. Michele Prado MCH (RBC) [Entitic mass] 28.1 pg Normal 26.7-34.0 [facility] Comment on above: Performed By: #### C BC #### [facility] [address] [address] [address] Michele Prado MCHC (RBC) [Mass/Vol] 32.8 g/dL Normal 29.9-35.2 [facility] Comment on above: Performed By: #### C BC #### [facility] [address] [address] [address] Michele Prado MCV (RBC) [Entitic vol] 85.7 fL Normal 81.0-99.0 [facility] Comment on above: Performed By: #### C BC #### [facility] [address] [place] [address] Dr. Michele Prado MONO # 0.8 103/ul Normal 0.3-0.8 [facility] Comment on above: Performed By: #### C BC #### [facility] [address] [place] [address] Dr. Michele Prado Monocytes/100 WBC (Bld) 7.6 % Normal 1.7-12.0 [facility] Comment on above: Performed By: #### C BC #### [facility] [address] [place] [address] Dr. Michele Prado NEUT # 6.4 103/ul Normal 1.4-6.5 [facility] Comment on above: Performed By: #### C BC #### [facility] [address] [place] [address] Dr. Michele Prado Neutrophils/100 WBC (Bld) 64.3 % Normal 43.0-75.0 [facility] Comment on above: Performed By: #### C BC #### [facility] [address] [place] [address] Dr. Michele Prado Platelet mean volume (Bld) [Entitic vol] 9.9 fL Normal 9.5-13.5 [facility] Comment on above: Performed By: #### C BC #### [facility] [address] [place] [address] Dr. Michele Prado PLT 327 103/ul Normal 150-450 [facility] Comment on above: Performed By: #### C BC #### [facility] [address] [address] [address] Michele Prado RBC 4.67 106/ul Normal 4.20-5.40 [facility] Comment on above: Performed By: #### C BC #### [facility] [address] [address] [address] Michele Prado WBC 10.0 103/ul Normal 4.0-11.0 [facility] Comment on above: Performed By: #### C BC #### [facility] [address] [place] [address] Dr. Michele Prado GLYCOHEMOGLOBIN A1Con 2021 ADA RECOMMENDATION SEE BELOW Normal [facility] Comment on above: Result Comment: ADA RECOMMENDED LIMIT 4.0 - 6.0 ADA THERAPEUTIC TARGET < 7.0 ACTION SUGGESTED > 7.0 Performed By: #### P REGU #### [facility] [address] [place] [address] Dr. Michele Prado Glucose [Mass/Vol] 117 mg/dL Normal [facility] Comment on above: Performed By: #### P REGU #### [facility] [address] [place] [address] Dr. Michele Prado HbA1c (Bld) [Mass fraction] 5.7 % Normal 4.5-6.2 [facility] Comment on above: Performed By: #### P REGU #### [facility] [address] [place] [address] Dr. Michele Prado LIPID PROFILEon 07-06-2021 CHOL-HDL RATIO NORM SEE BELOW Normal [facility] Comment on above: Result Comment: 3.3 - 4.4 LOW RISK 4.4 - 7.1 AVERAGE RISK 7.1 - 11.0 MODERATE RISK >11.0 HIGH RISK Performed By: #### P REGU #### [facility] [address] [place] [address] Dr. Michele Prado Cholesterol [Mass/Vol] 196 mg/dL Normal <=200 [facility] Comment on above: Performed By: #### P REGU #### [facility] [address] [place], [place] [id number] Dr. Michele Prado Cholesterol in HDL [Mass/Vol] 56 mg/dL Normal 40-60 [facility] Comment on above: Performed By: #### P REGU #### [facility] [address] [address] [address] Michele Prado Cholesterol in LDL [Mass/Vol] 124.2 mg/dL Normal [facility] Comment on above: Performed By: #### P REGU #### [facility] [address] [address] [address] Michele Prado Cholesterol.total/Chol esterol in HDL [Mass ratio] 3.5 {ratio} Normal [facility] Comment on above: Performed By: #### P REGU #### [facility] [address] [place] [address] Dr. Michele Prado HDL NORMAL > or = 60 mg/dl - LO W CARDIOVASCULAR RISK <40 mg/dl - HIGH CARDIOVASCULAR RISK Normal [facility] Comment on above: Performed By: #### P REGU #### [facility] [address] [address] [address] Michele Prado LDL CALC NORMAL SEE BELOW Normal [facility] Comment on above: Result Comment: <100 mg/dl OPTIMAL 100 - 129 mg/dl NEAR OR ABOVE OPTIMAL 130 - 159 mg/dl BORDERLINE HIGH 160 - 189 mg/dl HIGH >190 mg/dl VERY HIGH Performed By: #### P REGU #### [facility] [address] [address] [address] Michele Prado Triglyceride [Mass/Vol] 79 mg/dL Normal <=150 [facility] Comment on above: Performed By: #### P REGU #### [facility] [address] [address] [address] Michele Prado VLDL CALC 15.8 mg/dL Normal [facility] Comment on above: Performed By: #### P REGU #### [facility] [address] [address] [address] Michele Prado PROF 14(COMP METB)on 022 Albumin [Mass/Vol] 3.4 g/dL Normal 3.4-5.0 [facility] Comment on above: Performed By: #### P REGU #### [facility] [address] [address] [address] Michele Prado Albumin/Globulin [Mass ratio] 0.8 {ratio} Normal [facility] Comment on above: Performed By: #### P REGU #### [facility] [address] [address] [address] Michele Prado ALP [Catalytic activity/Vol] 101 U/L Normal 46-116 [facility] Comment on above: Performed By: #### P REGU #### [facility] [address] [address] [address] Michele Prado ALT [Catalytic activity/Vol] 33 U/L Normal 14-59 [facility] Comment on above: Performed By: #### P REGU #### [facility] [address] [place] [address] Dr. Michele Prado Anion gap [Moles/Vol] 8.6 mmol/L Normal [facility] Comment on above: Performed By: #### P REGU #### [facility] [address] [place] [address] Dr. Michele Prado AST [Catalytic activity/Vol] 15 U/L Normal 15-37 [facility] Comment on above: Performed By: #### P REGU #### [facility] [address] [place] [address] Dr. Michele Prado Bilirubin [Mass/Vol] 0.2 mg/dL Normal 0.2-1.0 [facility] Comment on above: Performed By: #### P REGU #### [facility] [address] [address] [address] Michele Prado Calcium [Mass/Vol] 8.7 mg/dL Normal 8.5-10.1 [facility] Comment on above: Performed By: #### P REGU #### [facility] [address] [address] [address] Michele Prado Chloride [Moles/Vol] 103 mmol/L Normal 98-107 [facility] Comment on above: Performed By: #### P REGU #### [facility] [address] [address] [address] Michele Prado CO2 [Moles/Vol] 27.1 mmol/L Normal 21.0-32.0 [facility] Comment on above: Performed By: #### P REGU #### [facility] [address] [address] [address] Michele Prado Creatinine [Mass/Vol] 0.68 mg/dL Normal 0.55-1.02 [facility] Comment on above: Performed By: #### P REGU #### [facility] [address] [place] [address] Dr. Michele Prado EGFR-AF GUYANESE >60 Normal >=60 [facility] Comment on above: Performed By: #### P REGU #### [facility] [address] [place] [address] Dr. Michele Prado EGFR-NON AF GUYANESE >60 Normal >=60 [facility] Comment on above: Performed By: #### P REGU #### [facility] [address] [place] [address] Dr. Michele Prado Globulin (S) [Mass/Vol] 4.1 g/dL Normal [facility] Comment on above: Performed By: #### P REGU #### [facility] [address] [place] [address] Dr. Michele Prado Glucose [Mass/Vol] 94 mg/dL Normal 74-106 [facility] Comment on above: Performed By: #### P REGU #### [facility] [address] [place] [address] Dr. Michele Prado Potassium [Moles/Vol] 3.7 mmol/L Normal 3.5-5.1 [facility] Comment on above: Performed By: #### P REGU #### [facility] [address] [place] [address] Dr. Michele Prado Protein [Mass/Vol] 7.5 g/dL Normal 6.1-8.2 [facility] Comment on above: Performed By: #### P REGU #### [facility] [address] [address] [address] Michele Prado Sodium [Moles/Vol] 135 mmol/L Critically low 136-145 [facility] Comment on above: Performed By: #### P REGU #### [facility] [address] [place] [address] Dr. Michele Prado Urea nitrogen [Mass/Vol] 8.0 mg/dL Normal 7.0-18.0 [facility] Comment on above: Performed By: #### P REGU #### [facility] [address] [place] [address] Dr. Michele Prado Urea nitrogen/Creatinine [Mass ratio] 11.8 mg/mg Normal [facility] Comment on above: Performed By: #### P REGU #### [facility] [address] [place] [address] Dr. Michele Prado TSHon 07-06-2021 TSH 1.234 uIU/mL Normal 0.470-4.680 [facility] Comment on above: Performed By: #### P REGU #### [facility] [address] [place] [address] Dr. Michele Prado TSH RANGE SEE BELOW Normal [facility] Comment on above: Result Comment: <0.3 4 UIU/ml HYPERTHYROID 0.34-5.60 UIU/ml EUTHYROID >5.60 UIU/ml HYPOTHYROID Performed By: #### P REGU #### [facility] [address] [place] [address] Dr. Michele Prado PAP ACOG PANEL 2: 23 to 31on 06-20-2021 . . Normal [facility] Comment on above: Performed By: #### P REGU #### [facility] [address] [place] [address] Dr. Michele Prado Age Gdln ACOG Testing - [facility] Comment on above: Performed By: #### P REGU #### [facility] [address] [place] [address] Dr. Michele Prado DIAGNOSIS: Comment Normal [facility] Comment on above: Result Comment: NEGA TIVE FOR INTRAEPITHELIAL LESION OR MALIGNANCY. THIS SPECIMEN WAS RESCREENED PART OF OUR HIGH [employer] GUIDANCE COUNSELOR PROGRAM. Performed By: #### P REGU #### [facility] [address] [place] [address] Dr. Michele Prado Methodology: Comment Normal [facility] Comment on above: Result Comment: This liquid based ThinPrep(R) pap test was screened with the use of an image guided system. Performed By: #### P REGU #### [facility] [address] [place] [address] Dr. Michele Prado Note: Comment Normal [facility] Comment on above: Result Comment: The Pap smear is a screening test designed to aid in the detection of premalignant and malignant conditions of the uterine cervix. It is not a diagnostic procedure and should not be used as the sole means of detecting cervical cancer. Both false-positive and false-negative reports do occur. . Performed By: #### P REGU #### [facility] [address] [place] [address] Dr. Michele Prado Performed by: Comment Normal [facility] Comment on above: Result Comment: Héctor Pitts, System Safety Engineer (ASCP) Performed By: #### P REGU #### [facility] [address] [place] [address] Dr. Michele Prado QC reviewed by: Comment Normal [facility] Comment on above: Result Comment: Mikel Solomon, Supervisory System Safety Engineer (ASCP) Performed By: #### P REGU #### [facility] [address] [place] [address] Dr. Michele Prado Reflex Criteria: Comment Normal [facility] Comment on above: Result Comment: The HPV DNA reflex criteria were not met with this specimen result therefore, no HPV testing was performed. . Performed By: #### P REGU #### [facility] [address] [place] [address] Dr. Michele Prado Specimen adequacy: Comment Normal [facility] Comment on above: Result Comment: Sati sfactory for evaluation. No endocervical component is identified. Performed By: #### P REGU #### [facility] [address] [place] [address] Dr. Michele Prado AMYLASEon 06-19-2021 Amylase [Catalytic activity/Vol] 41 U/L Normal 25-115 [facility] Comment on above: Performed By: #### L IPA, BMP, RADHA, LIVER #### [facility] [address] [place] [address] Dr. Michele Prado CBC AUTO DIFFon 06-19-2021 BASO # 0.0 103/ul Normal 0.0-0.1 [facility] Comment on above: Performed By: #### C BC #### [facility] [address] [place] [address] Dr. Michele Prado Basophils/100 WBC (Bld) 0.3 % Normal 0.2-2.0 [facility] Comment on above: Performed By: #### C BC #### [facility] [address] [place] [address] Dr. Michele Prado EO # 0.2 103/ul Normal 0.0-0.7 [facility] Comment on above: Performed By: #### C BC #### [facility] [address] [place] [address] Dr. Michele Prado Eosinophils/100 WBC (Bld) 1.9 % Normal 0.9-7.0 [facility] Comment on above: Performed By: #### C BC #### [facility] [address] [place] [address] Dr. Michele Prado Erythrocyte distribution width (RBC) [Ratio] 12.8 % Normal 11.0-15.0 [facility] Comment on above: Performed By: #### C BC #### [facility] [address] [place] [address] Dr. Michele Prado Hematocrit (Bld) [Volume fraction] 40.6 % Normal 36.0-48.0 [facility] Comment on above: Performed By: #### C BC #### [facility] [address] [place] [address] Dr. Michele Prado Hemoglobin (Bld) [Mass/Vol] 13.0 g/dL Normal 12.0-16.0 [facility] Comment on above: Performed By: #### C BC #### [facility] [address] [place] [address] Dr. Michele Prado IG # 0.04 10e3/ul Critically high 0.00-0.03 [facility] Comment on above: Performed By: #### C BC #### [facility] [address] [place] [address] Dr. Michele Prado IG % 0.3 % Normal 0.0-0.5 [facility] Comment on above: Performed By: #### C BC #### [facility] [address] [place] [address] Dr. Michele Prado LYMPH # 3.4 103/ul Normal 1.2-3.8 [facility] Comment on above: Performed By: #### C BC #### [facility] [address] [place] [address] Dr. Michele Prado Lymphocytes/100 WBC (Bld) 27.7 % Normal 20.5-60.0 [facility] Comment on above: Performed By: #### C BC #### [facility] [address] [place] [address] Dr. Michele Prado MANUAL DIFF REQ NO Normal [facility] Comment on above: Performed By: #### C BC #### [facility] [address] [place] [address] Dr. Michele Prado MCH (RBC) [Entitic mass] 27.5 pg Normal 26.7-34.0 [facility] Comment on above: Performed By: #### C BC #### [facility] [address] [place] [address] Dr. Michele Prado MCHC (RBC) [Mass/Vol] 32.0 g/dL Normal 29.9-35.2 [facility] Comment on above: Performed By: #### C BC #### [facility] [address] [place] [address] Dr. Michele Prado MCV (RBC) [Entitic vol] 85.8 fL Normal 81.0-99.0 [facility] Comment on above: Performed By: #### C BC #### [facility] [address] [address] [address] Michele Prado MONO # 1.0 103/ul Critically high 0.3-0.8 [facility] Comment on above: Performed By: #### C BC #### [facility] [address] [place] [address] Dr. Michele Prado Monocytes/100 WBC (Bld) 8.1 % Normal 1.7-12.0 [facility] Comment on above: Performed By: #### C BC #### [facility] [address] [place] [address] Dr. Michele Prado NEUT # 7.5 103/ul Critically high 1.4-6.5 [facility] Comment on above: Performed By: #### C BC #### [facility] [address] [place] [address] Dr. Michele Prado Neutrophils/100 WBC (Bld) 61.7 % Normal 43.0-75.0 [facility] Comment on above: Performed By: #### C BC #### [facility] [address] [place] [address] Dr. Michlee Prado Platelet mean volume (Bld) [Entitic vol] 10.0 fL Normal 9.5-13.5 [facility] Comment on above: Performed By: #### C BC #### [facility] [address] [place] [address] Dr. Michele Prado PLT 342 103/ul Normal 150-450 [facility] Comment on above: Performed By: #### C BC #### [facility] [address] [place] [address] Dr. Michele Prado RBC 4.73 106/ul Normal 4.20-5.40 [facility] Comment on above: Performed By: #### C BC #### [facility] [address] [place] [address] Dr. Michele Prado WBC 12.2 103/ul Critically high 4.0-11.0 [facility] Comment on above: Performed By: #### C BC #### [facility] [address] [place] [address] ABD/PELV W CONon 06-20-19 CT ABD/PELV W CON EXAMINATION: CT ABD/PELV W CON HISTORY: UNSPECIFIED ABDOMINAL PAIN , nausea, vomiting COMPARISON: No relevant comparison available. TECHNIQUE: Axial, Coronal, and Sagittal images were created with IV contrast. Dose reduction techniques were achieved by using automated exposure control and/or adjustment of mA and/or kV according to patient size and/or use of iterative reconstruction technique. FINDINGS: LUNG BASES: No visible pulmonary or pleural disease. LIVER: No enlargement, atrophy, abnormal density, or significant focal lesion. BILIARY: Empty, nondistended gallbladder. No appreciable wall thickening or stones. No abnormal duct dilation. PANCREAS: No lesion, fluid collection, ductal dilatation, or atrophy. SPLEEN: No enlargement or focal lesion. ADRENALS: No mass or enlargement. KIDNEYS: No mass, obstruction, or calcification. BOWEL/MESENTERY: No visible mass, obstruction, or bowel wall thickening. Normal appendix. AORTA/VASCULAR: No aneurysm or dissection. RETROPERITONEUM: No mass or adenopathy. LYMPH NODES: No adenopathy. URINARY BLADDER: No visible focal wall thickening, lesion, or calculus. PELVIC ORGANS: No visible mass. Pelvic organs appropriate for patient age. ABDOMINAL WALL: No mass or hernia. BONES: No bony lesion or fracture. OTHER: Negative. IMPRESSION: 1. No acute or suspicious findings to account for patient's symptoms. Electronically authenticated by: TIFFANIE COE Date: 2021-06-19 16:14 Normal [facility] LIPASEon 06-19-2021 Lipase [Catalytic activity/Vol] 78.0 U/L Normal 23.0-300.0 [facility] Comment on above: Performed By: #### L IPA, BMP, RADHA, LIVER #### [facility] [address] [address] [address] Michele Prado LIVER PROFILEon 06-19-2021 Albumin [Mass/Vol] 3.5 g/dL Normal 3.4-5.0 [facility] Comment on above: Performed By: #### L IPA, BMP, RADHA, LIVER #### [facility] [address] [place], [place] [address] Dr. Michele Prado Albumin/Globulin [Mass ratio] 0.9 {ratio} Normal [facility] Comment on above: Performed By: #### L IPA, BMP, RADHA, LIVER #### [facility] [address] [address] [address] Michele Prado ALP [Catalytic activity/Vol] 103 U/L Normal 46-116 [facility] Comment on above: Performed By: #### L IPA, BMP, RADHA, LIVER #### [facility] [address] [address] [address] Michele Prado ALT [Catalytic activity/Vol] 24 U/L Normal 14-59 [facility] Comment on above: Performed By: #### L IPA, BMP, RADHA, LIVER #### [facility] [address] [place] [address] Dr. Michele Prado AST [Catalytic activity/Vol] 10 U/L Critically low 15-37 [facility] Comment on above: Performed By: #### L IPA, BMP, RADHA, LIVER #### [facility] [address] [place] [address] Dr. Michele Prado BILI, CONJUGATED 0.1 mg/dL Normal 0.0-0.3 [facility] Comment on above: Performed By: #### L IPA, BMP, RADHA, LIVER #### [facility] [address] [place] [address] Dr. Michele Prado Bilirubin [Mass/Vol] 0.2 mg/dL Normal 0.2-1.3 [facility] Comment on above: Performed By: #### L IPA, BMP, RADHA, LIVER #### [facility] [address] [place] [address] Dr. Michele Prado Globulin (S) [Mass/Vol] 4.0 g/dL Normal [facility] Comment on above: Performed By: #### L IPA, BMP, RADHA, LIVER #### [facility] [address] [place] [address] Dr. Michele Prado Protein [Mass/Vol] 7.5 g/dL Normal 6.1-8.2 [facility] Comment on above: Performed By: #### L IPA, BMP, RADHA, LIVER #### [facility] [address] [place] [address] Dr. Michele Prado PREG HCG QUALon 06-19-2021 , QUAL Negative Normal NEGATIVE [facility] Comment on above: Performed By: #### P REG #### [facility] [address] [address] [address] Michele Prado PROF CHEM 8 (BAS METB)on Anion gap [Moles/Vol] 12.2 mmol/L Normal [facility] Comment on above: Performed By: #### L IPA, BMP, RADHA, LIVER #### [facility] [address] [address] [address] Michele Prado Calcium [Mass/Vol] 9.3 mg/dL Normal 8.5-10.1 [facility] Comment on above: Performed By: #### L IPA, BMP, RADHA, LIVER #### [facility] [address] [place] [address] Dr. Michele Prado Chloride [Moles/Vol] 103 mmol/L Normal 98-107 [facility] Comment on above: Performed By: #### L IPA, BMP, RADHA, LIVER #### [facility] [address] [address] [address] Michele Prado CO2 [Moles/Vol] 27.7 mmol/L Normal 22.0-30.0 [facility] Comment on above: Performed By: #### L IPA, BMP, RADHA, LIVER #### [facility] [address] [address] [address] Michele Prado Creatinine [Mass/Vol] 0.69 mg/dL Normal 0.52-1.04 [facility] Comment on above: Performed By: #### L IPA, BMP, RADHA, LIVER #### [facility] [address] [address] [address] Michele Prado EGFR-AF GUYANESE >60 Normal >=60 [facility] Comment on above: Performed By: #### L IPA, BMP, RADHA, LIVER #### [facility] [address] [address] [address] Michele Prado EGFR-NON AF GUYANESE >60 Normal >=60 [facility] Comment on above: Performed By: #### L IPA, BMP, RADHA, LIVER #### [facility] [address] [address] [address] Michele Prado Glucose [Mass/Vol] 113 mg/dL Critically high 74-106 T [facility] Comment on above: Performed By: #### L IPA, BMP, RADHA, LIVER #### [facility] [address] [place] [address] Dr. Michele Prado Potassium [Moles/Vol] 3.9 mmol/L Normal 3.4-5.0 [facility] Comment on above: Performed By: #### L IPA, BMP, RADHA, LIVER #### [facility] [address] [place] [address] Dr. Michele Prado Sodium [Moles/Vol] 139 mmol/L Normal 137-145 [facility] Comment on above: Performed By: #### L IPA, BMP, RADHA, LIVER #### [facility] [address] [place] [address] Dr. Michele Prado Urea nitrogen [Mass/Vol] 11.0 mg/dL Normal 7.0-18.0 [facility] Comment on above: Performed By: #### L IPA, BMP, RADHA, LIVER #### [facility] [address] [place] [address] Dr. Michele Prado Urea nitrogen/Creatinine [Mass ratio] 15.9 mg/mg Normal [facility] Comment on above: Performed By: #### L IPA, BMP, RADHA, LIVER #### [facility] [address] [place] [address] Dr. Michele Prado Vital Signs Date Time Vital Sign Value Performing Clinician Armindai lity 11-08-2022 13:32-0400 Heart rate 65 /min Traci Mckinneygianluca [facility] 11-08-2022 13:32-0400 SaO2% (BldA) [Mass fraction] 98 % Traci Oscarmimi [facility] 11-08-2022 13:32-0400 Blood Pressure Location Traci Man [facility] 11-08-2022 13:32-0400 Diastolic blood pressure 71 mm[Hg] Traci Timmis [facility] 11-08-2022 13:32-0400 Mean blood pressure 83 mm[Hg] Traci Timmis [facility] 11-08-2022 13:32-0400 Systolic blood pressure 106 mm[Hg] Traci Timmis [facility] 11-08-2022 13:32-0400 Body temperature 97.88 [degF] Traci Timmis [facility] 11-08-2022 13:32-0400 Respiratory rate 16 /min Traci Timmis [facility] 11-08-2022 12:47-0400 Heart rate 64 /min Traci Timmis [facility] 11-08-2022 12:47-0400 SaO2% (BldA) [Mass fraction] 96 % Traci Timmis [facility] 11-08-2022 12:47-0400 Respiratory rate 15 /min Traci Timmis [facility] 11-08-2022 12:47-0400 Body temperature 97.52 [degF] Traci Timmis [facility] 11-08-2022 12:46-0400 Blood Pressure Location Traci Timmis [facility] 11-08-2022 12:46-0400 Diastolic blood pressure 76 mm[Hg] Traci Timmis [facility] 11-08-2022 12:46-0400 Mean blood pressure 89 mm[Hg] Traci Timmis [facility] 11-08-2022 12:46-0400 Systolic blood pressure 113 mm[Hg] Traci Timmis [facility] 11-08-2022 12:40-0400 Body temperature 98.06 [degF] Traci Timmis [facility] 11-08-2022 12:40-0400 Diastolic blood pressure 77 mm[Hg] Traci Timmis [facility] 11-08-2022 12:40-0400 Heart rate 81 /min Traci Timmis [facility] 11-08-2022 12:40-0400 Mean blood pressure 89 mm[Hg] Traci Timmis [facility] 11-08-2022 12:40-0400 Respiratory rate 15 /min Traci Timmis [facility] 11-08-2022 12:40-0400 SaO2% (BldA) [Mass fraction] 100 % Traci Timmis [facility] 11-08-2022 12:40-0400 Systolic blood pressure 113 mm[Hg] Traci Timmis [facility] 11-08-2022 12:30-0400 Mean blood pressure 84 mm[Hg] Traci Timmis [facility] 11-08-2022 12:30-0400 Respiratory rate 13 /min Traci Timmis [facility] 11-08-2022 12:15-0400 Mean blood pressure 82 mm[Hg] Traci Timmis [facility] 11-08-2022 12:15-0400 Respiratory rate 13 /min Traci Timmis [facility] 11-08-2022 11:40-0400 Respiratory rate 6 /min Traci Timmis [facility] 11-08-2022 08:06-0400 Blood Pressure Location Traci Timmis [facility] 11-08-2022 08:06-0400 Mean blood pressure 89 mm[Hg] Traci Timmis [facility] 11-08-2022 08:04-0400 Heart rate 78 /min Traci Timmis [facility] 11-08-2022 08:03-0400 Body temperature 97.88 [degF] Traci Timmis [facility] 10-15-2022 13:40-0400 Diastolic blood pressure 75 mm[Hg] Traci Timmis [facility] 10-15-2022 13:40-0400 Systolic blood pressure 107 mm[Hg] Traci Timmis [facility] 10-15-2022 13:34-0400 Diastolic blood pressure 88 mm[Hg] Traci Timmis [facility] 10-15-2022 13:34-0400 Heart rate 79 /min Traci Timmis [facility] 10-15-2022 13:34-0400 Mean blood pressure 105 mm[Hg] Traci Timmis [facility] 10-15-2022 13:34-0400 Systolic blood pressure 137 mm[Hg] Traci Timmis [facility] 10-15-2022 13:34-0400 Heart rate 73 /min Traci Timmis [facility] 10-15-2022 13:34-0400 SaO2% (BldA) [Mass fraction] 96 % Traci Timmis [facility] 10-15-2022 13:34-0400 Diastolic blood pressure 86 mm[Hg] Traci Timmis [facility] 10-15-2022 13:34-0400 Mean blood pressure 103 mm[Hg] Traci Timmis [facility] 10-15-2022 13:34-0400 Systolic blood pressure 138 mm[Hg] Traci Timmis [facility] 10-15-2022 13:34-0400 Respiratory rate 17 /min Traci Timmis [facility] 12-28-2021 15:59-0400 Blood Pressure Location Tom Whyte [facility] 12-28-2021 15:59-0400 Diastolic blood pressure 76 mm[Hg] Tom Whyte [facility] 12-28-2021 15:59-0400 Heart rate 96 /min Tom Whyte [facility] 12-28-2021 15:59-0400 SaO2% (BldA) [Mass fraction] 97 % Tom Whyte [facility] 12-28-2021 15:59-0400 Systolic blood pressure 104 mm[Hg] Tom Whyte [facility] 06-28-2021 16:30-0400 Blood Pressure Location Tom Whyte [facility] 06-28-2021 16:30-0400 Diastolic blood pressure 76 mm[Hg] Tom Whyte [facility] 06-28-2021 16:30-0400 Heart rate 95 /min Tom Whyte [facility] 06-28-2021 16:30-0400 SaO2% (BldA) [Mass fraction] 98 % Tom Whyte [facility] 06-28-2021 16:30-0400 Systolic blood pressure 124 mm[Hg] Tom Whyte [facility] Encounters Encounter Date Encounter Type Care Provider Facility Start: 05-22-2023 End: 05-23-2023 ambulatory Kathryn L Gill Facility:[facility] Start: 05-18-2023 End: 05-18-2023 ambulatory Not Available Start: 04-10-2023 End: 04-11-2023 ambulatory Kathryn L Gill Facility:[facility] [place] Start: 02-11-2023 End: 02-12-2023 ambulatory Kathryn L Gill Facility:[facility] [place] Start: 11-08-2022 End: 11-08-2022 ambulatory Traci H Timmis Facility:[facility] [place] [place] Start: 11-08-2022 End: 11-08-2022 Admission to same day surgery center Traci H Timmis [facility] Start: 10-15-2022 End: 10-16-2022 ambulatory Traci H Timmis Facility:[facility] [place] [place] Start: 10-15-2022 End: 10-15-2022 Patient encounter procedure Traci H Timmis [facility] Start: 09-28-2022 End: 09-29-2022 ambulatory Traci H Timmis Facility:[facility] [place] [place] Start: 09-25-2022 End: 09-26-2022 ambulatory Kathryn L Gill Facility:[facility] [place] Start: 08-21-2022 End: 08-22-2022 ambulatory Kathryn L Gill Facility:[facility] [place] [place] Start: 2022 End: 07-19-2022 ambulatory Tom Whyte Facility[facility] Start: 06-13-2022 ambulatory Tom Whyte Facility :[facility] Start: 06-12-2022 End: 06-13-2022 ambulatory Tom Whyte Facility:[facility] Start: 05-16-2022 End: 05-16-[address] TIFFANIE COE Facility:[facility] Start: 01-31-2022 End: 01-31-[address] JAZMINE HORN Facility:[facility] Start: 01-10-2022 End: 01-11-[address] NANCY HA . Facility:[facility] Start: 12-28-2021 End: 12-28-2021 Patient encounter procedure Tom Whyte [facility] Start: 12-04-2021 End: 12-04-[address] YOUSUF PADILLA . Facility:[facility] Start: 12-02-2021 Encounter for preprocedural laboratory examination DR YOUSUF PADILLA . [facility] Start: 11-30-2021 End: 12-01-[address] YOUSUF PADILLA . Facility:[facility] Start: 11-30-2021 End: 12-01-2021 Encounter for preprocedural laboratory examination DR YOUSUF PADILLA . Facility:[facility] Start: 11-24-2021 End: 11-25-[address] YOUSUF PADILLA . Facility:[facility] Start: 11-07-2021 End: 11-07-2021 ambulatory PJ BAE Facility:[facility] Start: 10-23-2021 End: 10-23-2021 ambulatory WENDY ODOM Facility:[facility] Start: 09-02-2021 End: 09-02-[address] JAZMINE HORN Facility:[facility] Start: 07-07-2021 Encounter for genera l adult medical examination without abnormal findings TOM WHYTE [facility] Start: 07-06-2021 End: 07-07-2021 ambulatory TOM WHYTE Facility:[facility] Start: 07-06-2021 End: 07-07-2021 Encounter for general adult medical examination without abnormal findings TOMBRO WHYTE Facility:[facility] Start: 06-28-2021 End: 06-28-2021 Patient encounter procedure Tom KyrieNai Pato [facility] Start: 06-28-2021 End: 06-28-2021 Well adult monitoring check done Tombro Whyte [facility] Start: 06-19-2021 End: 06-19-[address] TIFFANIE COE Facility:[facility] Start: 06-13-2021 End: 06-13-[address] YOUSUF PADILLA . Facility:[facility] Procedures Date Procedure Procedure Detail Performing Clinician Start: 11-08-2022 Ethmoidectomy intran ricki total Traci Mooremis Start: 12-04-2021 Bilateral segmental tubal excision and ligation by endoscopy Tombro Whyte Start: 12-04-2021 Fallopian tube excision Tombro Whyte Comment on above: bilateral Start: 07-20-2015 section Tom Pato Start: 03-04-2010 Lumpectomy of left breast Tombro Whyte Start: 03-04-2002 Tonsillectomy Tom parrish Immunizations Immunization Date Immunization Notes Care Provider Fa cili 01-10-2022 SARS-CoV-2 (COVID-19 ) mRNA-[address] [facility] 12-02-2021 influenza virus vaccine, unspecified formulation Tombro Whyte [facility] 12-23-2020 SARS-CoV-2 (COVID-19 ) mRNA-1273 vaccine Tom Whyte [facility] 11-26-2020 influenza virus vaccine, unspecified formulation Tom Whyte [facility] 04-08-2020 SARS-CoV-2 (COVID-19 ) mRNA-1273 vaccine Tom Whyte [facility] 03-11-2020 SARS-CoV-2 (COVID-19 ) mRNA-1273 vaccine Tom Whyte [facility] 11-23-2019 HPV, unspecified formulation Tom Whyte [facility] 01-09-2019 HPV, unspecified formulation Tom Whyte [facility] 11-01-2018 HPV, unspecified formulation Tom Whyte [facility] 09-24-1997 DTaP, unspecified formulation; Translations: [DTaP, unspecified formulation] Tom Whyte [facility] 09-24-1997 measles, mumps and rubella virus vaccine Tom Whyte [facility] 04-25-1994 DTaP, unspecified formulation; Translations: [DTaP, unspecified formulation] Tom Whyte [facility] 04-25-1994 Hib, unspecified formulation; Translations: [Hib, unspecified formulation] Tom Whyte [facility] 08-11-1993 hepatitis B vaccine, pediatric or pediatric/adolescent dosage Tom Whyte [facility] 08-11-1993 measles, mumps and rubella virus vaccine Tom Whyte [facility] 04-26-1993 Hib, unspecified formulation; Translations: [Hib, unspecified formulation] Tom Whyte [facility] 01-04-1993 hepatitis B vaccine, pediatric or pediatric/adolescent dosage Tom Whyte [facility] 01-04-1993 Hib, unspecified formulation; Translations: [Hib, unspecified formulation] Tom Whyte [facility] 1992 hepatitis B vaccine, pediatric or pediatric/adolescent dosage Tom Whyte [facility] 1990 Hib, unspecified formulation; Translations: [Hib, unspecified formulation] Tom Whyte [facility] Payers Date Payer Category Payer Unknown [id number] 2019 Unknown [id number] 1990 Unknown [id number] 2.16.84 0.1.890833.3.579.2.593 1992 Unknown [id number] 2.16.84 0.1.721898.3.579.2.593 1992 Unknown [id number] 2.16.84 0.1.315952.3.579.2.593 1992 Unknown [id number] 2.16.84 0.1.423006.3.579.2.593 1992 Unknown [id number] 2.16.84 0.1.416919.3.579.2.593 1992 Unknown [id number] 2.16.84 0.1.271844.3.579.2.593 1992 Unknown [id number] 2.16.84 0.1.905002.3.579.2.593 1992 Unknown [id number] 2.16.84 0.1.498718.3.579.2.593 1992 Unknown [id number] 2.16.84 0.1.105892.3.579.2.593 1992 Unknown [id number] 2.16.84 0.1.809711.3.579.2.593 1992 Unknown [id number] 2.16.84 0.1.445880.3.579.2.593 1992 Unknown [id number] 2.16.84 0.1.940765.3.579.2.1259 1992 Unknown [id number] 2.16.8 40.1.076597.3.579.2.72 1992 Unknown [id number] 2.16.8 40.1.732852.3.579.2.727 1992 Unknown [id number] 2.16.8 40.1.497971.3.579.2.727 1992 Unknown [id number] 2.16.8 40.1.250317.3.579.2.727 1992 Unknown [id number] 2.16.8 40.1.717789.3.579.2.727 1992 Unknown [id number] 2.16.8 40.1.643601.3.579.2.727 1992 Unknown [id number] 2.16.8 40.1.207329.3.579.2.727 1992 Unknown [id number] 2.16.8 40.1.847102.3.579.2.727 1992 Unknown [id number] 2.16.8 40.1.604791.3.579.2.72 1992 Unknown [id number] 2.16.8 40.1.878543.3.579.2.727 1992 Unknown [id number] 2.16.8 40.1.184217.3.579.2.727 1992 Unknown [id number] 2.16.8 40.1.601746.3.579.2.727 1959 Self-pay [id number] Unknown [id number] 2.16.84 0.1.569302.3.579.2.593 Social History Date Type Detail Facility Start: 06-28-2021 End: 09-25-2022 Tobacco smoking status Ex-smoker (finding) [facility] Tobacco smoking status Smokeless tobacco user within last 30 days [facility] Sex Assigned At Female [facility] Functional Status Date Assessment Result Facility 10-15-2022 Functional Status No [facility] 12-28-2021 Functional Status N/A [facility] Clinical Notes 06-28-2021 to 02-11-2023 Note Date & Type Note Facility 02-11-2023 Note HPI Staff This visit was conducted via two-way, real-time interactive video communications by Kathryn Fall from my office using [employer] [place]. The patient was located at their home, located at [address] [phone], with _ in attendance. A signed authorization for treatment has been obtained via our standard authorization packet or by verbal consent by the patient or their legal utility sales representative. The patient's identity and location in [place] has been verified by our office staff. If it is determined that the patient should be evaluated in the clinic, the patient will be directed to the appropriate clinic or venue. A limited physical exam will be conducted reviewing those areas of the body visible via telecommunications. Total time spent preparing the chart, conducting the encounter with the patient and family, and time spent documenting, reviewing, and ordering tests was _ minutes. All records and visits comply with HIPAA standards. Patient or Guardian reported vitals: Temp: _ 97.8 Wt: _ 275 Ht: _ 5'9 BP: _ HR: _ 82 Sp02: _ 96% room air Tested positive for Covid at home 02/10/23 Onset 02/08/23, chest feels tight and hurts to take a deep breath. Body aches: yes Chills: no Fatigue: yes Cough: yes dry Sore throat: yes Fever: no Headache: yes Nasal congestion: yes intermittent Loss of taste: yes Loss of smell: yes Eye itching/watering: yes feel dry Sneezing: yes SOB: yes Known Exposure: no Occupation: Pharmacy [employer] Remedies tried: Mucinex , cough drops, chloropeptic spray, Tylenol History of Covid 19 previouslyyes Vaccinated against covid 19:yes History of Present Illness pt presents via video visit. tested positive for covid yesterday. Review of Systems ROS - Provider Constitutional: no fever, no chills, no sweats, no fatigue Respiratory: no shortness of breath, no cough, no orthopnea, no wheezing. Cardiovascular: no chest pain, no palpitations, no edema. Neurologic: no headache, no dizziness, no numbness, no weakness. Physical Exam unable to perform physical exam due to video visit. pt is laying in bed and appears to be miserable Assessment/Plan 1. COVID-19 virus detected (U07.1: COVID-19) pt presents today with covid 19 symptoms. tested positive yesterday. started symptoms on . pt has body aches, cough, congestion, headache. will send in zpak, medrol dose pack and benzonate. pt asks about anti viral. but was informed that is only used if you have other co morbidities. all questions answered. Pt encourage to stay hydrated and rest. she will call office with her office fax number for work excuse. Ordered: azithromycin, = 1 packet(s), Oral, As Directed, as directed on package labeling, X 5 day(s), # 6 tab(s), Refills(s) 0, [id number], 175, cm, 10/15/22 13:27:00 EDT, Height/Length Dosing, 126.1, kg, 10/15/22 13:27:00 EDT, Weight Dosing benzonatate, 200 mg = 1 cap(s), Oral, TID, X 7 day(s), # 21 cap(s), Refills(s) 0, [id number], 175, cm, 10/15/22 13:27:00 EDT, Height/Length Dosing, 126.1, kg, 10/15/22 13:27:00 EDT, Weight Dosing methylPREDNISolone, = 1 packet(s), Oral, As Directed, as directed on package labeling, X 6 day(s), # 21 tab(s), Refills(s) 0, [id number], 175, cm, 10/15/22 13:27:00 EDT, Height/Length Dosing, 126.1, kg, 10/15/22 13:27:00 EDT, Weight Dosing PORTAL VISIT 11-20 min [id number] Follow-up No qualifying data available Problem List/Past Medical History Ongoing Antibiotic-induced yeast infection Chronic bilateral low back pain without sciatica Chronic frontal sinusitis COVID-19 virus detected Excessive dietary caloric intake GERD without esophagitis Urinary tract infection Wellness examination Historical No qualifying data Procedure/Surgical History Ethmoidectomy; intranasal, total (11/08/2022), Bilateral segmental tubal excision and ligation by endoscopy (12/04/2021), Salpingectomy (12/04/2021), section (07/20/2015), Lumpectomy of left breast (2010), Tonsillectomy (2002). Medications Albuterol (Eqv-ProAir HFA) 90 mcg/inh inhalation aerosol, 2 puff(s), Inhalation, q6hr, 3 refills albuterol 0.083% Inh Negrita 3 mL, 2.5 mg= 3 mL, Inhalation, q6hr, 12 refills azithromycin 250 mg Tab, 1 packet(s), Oral, As Directed benzonatate 200 mg oral capsule, 200 mg= 1 cap(s), Oral, TID Medrol 4 mg Tab, 1 packet(s), Oral, As Directed Zofran ODT 4 mg Tab-Dis, 4 mg= 1 tab(s), Oral, Once Zyrtec-D oral tablet, extended release, 1 tab(s), Oral, q24hr Allergies aspirin (Anaphylactic reaction) Social History Alcohol - Denies Alcohol Use, 06/28/2021 Household alcohol concerns: No., 06/12/2022 Substance Abuse - Denies Substance Abuse, 06/28/2021 Household substance abuse concerns: No., 06/12/2022 Tobacco - High Risk, 06/12/2022 Former smoker, quit more than 30 days ago Tobacco Use:. Smokeless tobacco user within last 30 days, Current vaping or e-cigarette use Smokeless Tobacco Use:. Cigarettes, V (more content not included)... [facility] Comment on above: Result Comment: Elec tronically Signed By: Kathryn Fall\.br\Date and Time Signed: 02/11/23 09:11 EST 11-09-2022 Note [id number]#1.00CD:127 [facility] 11-08-2022 Hospital Discharg e instructions Patient Education 11/08/2022 13:11:46 Post Op Patient Instructions - FT (CUSTOM) Follow Up Care 10/04/2022 08:20:46 With:Traci Man Address: [address] [place] [phone] When:11/14/2022 Comments:Call for appointment [facility] 10-26-2022 Note [id number]#1.00CD:127 [facility] 05-16-2022 Note PROCEDURE: XR ANKLE RT MIN 3 VIEWS HISTORY: Pain of right ankle joint after falling COMPARISON: None. FINDINGS: BONES:No fracture, acute abnormality, or significant arthropathy. SOFT TISSUES:No visible soft tissue swelling. EFFUSION:None visible. OTHER: Negative. IMPRESSION: 1. No acute bone abnormality. Electronically authenticated by: TIFFANIE COE Date: 2022-05-16 09:11 [facility] 01-31-2022 Note PROCEDURE: XR KNEE R T 4V or > HISTORY: Bone injury ; acute right knee pain COMPARISON: None. FINDINGS: BONES:No fracture, acute abnormality, or significant arthropathy. SOFT TISSUES:No visible soft tissue swelling. EFFUSION:None visible. OTHER: Negative. IMPRESSION: 1. No acute bone abnormality. Electronically authenticated by: TIFFANIE COE Date: 2022-01-31 11:01 [facility] 06-28-2021 Hospital Discharg e instructions Patient Education 06/28/2021 17:10:16 Back Exercises Back Exercises The following exercises strengthen the muscles that help to support the trunk and back. They also help to keep the lower back flexible. Doing these exercises can help to prevent back pain or lessen existing pain. If you have back pain or discomfort, try doing these exercises 2 3 times each day or as told by your health care provider. As your pain improves, do them once each day, but increase the number of times that you repeat the steps for each exercise (do more repetitions). To prevent the recurrence of back pain, continue to do these exercises once each day or as told by your health care provider. Do exercises exactly as told by your health care provider and adjust them as directed. It is normal to feel mild stretching, pulling, tightness, or discomfort as you do these exercises, but you should stop right away if you feel sudden pain or your pain gets worse. Exercises Single knee to chest Repeat these steps 3 5 times for each le.Lie on your back on a firm bed or the floor with your legs extended. 2.Bring one knee to your chest. Your other leg should stay extended and in contact with the floor. 3.Hold your knee in place by grabbing your knee or thigh with both hands and hold. 4.Pull on your knee until you feel a gentle stretch in your lower back or buttocks. 5.Hold the stretch for 10 30 seconds. 6.Slowly release and straighten your leg. Pelvic tilt Repeat these steps 5 10 times: 1.Lie on your back on a firm bed or the floor with your legs extended. 2.Bend your knees so they are pointing toward the ceiling and your feet are flat on the floor. 3.Tighten your lower abdominal muscles to press your lower back against the floor. This motion will tilt your pelvis so your tailbone points up toward the ceiling instead of pointing to your feet or the floor. 4.With gentle tension and even breathing, hold this position for 5 10 seconds. Cat-cow Repeat these steps until your lower back becomes more flexible: 1.Get into a [id number]-uax-slnmy position on a firm surface. Keep your hands under your shoulders, and keep your knees under your hips. You may place padding under your knees for comfort. 2.Let your head hang down toward your chest. Contract your abdominal muscles and point your tailbone toward the floor so your lower back becomes rounded like the back of a cat. 3.Hold this position for 5 seconds. 4.Slowly lift your head, let your abdominal muscles relax and point your tailbone up toward the ceiling so your back forms a sagging arch like the back of a cow. 5.Hold this position for 5 seconds. Press-ups Repeat these steps 5 10 times: 1.Lie on your abdomen (face-down) on the floor. 2.Place your palms near your head, about shoulder-width apart. 3.Keeping your back as relaxed as possible and keeping your hips on the floor, slowly straighten your arms to raise the top half of your body and lift your shoulders. Do not use your back muscles to raise your upper torso. You may adjust the placement of your hands to make yourself more comfortable. 4.Hold this position for 5 seconds while you keep your back relaxed. 5.Slowly return to lying flat on the floor. Bridges Repeat these steps 10 times: 1.Lie on your back on a firm surface. 2.Bend your knees so they are pointing toward the ceiling and your feet are flat on the floor. Your arms should be flat at your sides, next to your body. 3.Tighten your buttocks muscles and lift your buttocks off the floor until your waist is at almost the same height as your knees. You should feel the muscles working in your buttocks and the back of your thighs. If you do not feel these muscles, slide your feet 1 2 inches farther away from your buttocks. 4.Hold this position for 3 5 seconds. 5.Slowly lower your hips to the starting position, and allow your buttocks muscles to relax completely. If this exercise is too easy, try doing it with your arms crossed over your chest. Abdominal crunches Repeat these steps 5 10 times: 1.Lie on your back on a firm bed or the floor with your legs extended. 2.Bend your knees so they are pointing toward the ceiling and your feet are flat on the floor. 3.Cross your arms over your chest. 4.Tip your chin slightly toward your chest without bending your neck. 5.Tighten your abdominal muscles and slowly raise your trunk (torso) high enough to lift your shoulder blades a tiny bit off the floor. Avoid raising your torso higher than that because it can put too much stress on your low back and does not help to strengthen your abdominal muscles. 6.Slowly return to your starting position. Back lifts Repeat these steps 5 10 times: 1.Lie on your abdomen (face-down) with your arms at your sides, and rest your forehead on the floor. 2.Tighten the muscles in your legs and your buttocks. 3.Slowly lift your chest off the floor while you keep your hips pressed to the floor. Keep the back of your head in line with the curve in your back. Your eyes should be looking at the floor. 4.Hold this position for 3 5 seconds. 5.Slowly return to your starting position. Contact a health care provider if: Your back pain or discomfort gets much worse when you do an exercise. Your worsening back pain or discomfort does not lessen within 2 hours after you exercise. If you have any of these problems, stop doing these exercises right away. Do not do them again unless your health care provider says that you can. Get help right away if: You develop sudden, severe back pain. If this happens, stop doing the exercises right away. Do not do them again unless your health care provider says that you can. This information is not intended to replace advice given to you by your health care provider. Make sure you discuss any questions you have with your health care provider. Document Released: 03/28/2005 Document Revised: 06/25/2019 Document Reviewed: 11/20/2018 Elsevier Patient Education 2020 [employer] [facility] Evaluation + Plan note Future Appointments Appointment Date:12/28/2021 04:00:00 PM Scheduled Provider:Tom Whyte MD Location:[facility] Appointment Type: Open [facility] Evaluation + Plan note Future Appointments Appointment Date:06/13/2022 04:40:00 PM Scheduled Provider:Tom Whyte MD Location:[facility] Appointment Type: Open [facility] Evaluation + Plan note Future Appointments Appointment Date:11/08/2022 10:00:00 AM Scheduled Provider: Location:[facility] Services Appointment Type:Surgery [facility] Hospital course Narrative No data available for this section [facility] Hospital Discharge instructions No data available for this section [facility] Progress note No data available for this section [facility] Summary Purpose Family History No Family History Records FoundNo Family History Records FoundNo Family History Records Found Advance Directives No Advanced Directives Records FoundNo Advanced Directives Records FoundNo Advanced Directives Records Found Additional Source Comments Patient Care team informatio n (unrecognized section and content) Personnel Name: Traci Man MD Address: Address: [address] [place] [address] Personnel Name: Tom Whyte MD Address: Address: [address] [place] [address] Personnel Name: Tom Whyte MD Address: Address: [address] [place] [address] INFORMATION SOURCE (unrecogn ized section and content) DATE CREATED AUTHOR 05/17/2022 [facility] DATE CREATED AUTHOR AUTHOR'S ORGANIZ ATION 05/19/2023 [facility] DATE CREATED AUTHOR AUTHOR'S ORGANIZ ATION 05/23/2023 [facility] FOR RECORDS PERTAINING TO PATIENTS WHO ARE OR HAVE BEEN ENROLLED IN A CHEMICAL DEPENDENCY/SUBSTANCEABUSE PROGRAM, SOME INFORMATION MAY BE OMITTED. This clinical summary was aggregated from multiple sources. Caution should be exercised in using it in the provision of clinical care. This summary normalizes information from multiple sources, and as a consequence, information in this document may materially change the coding, format and clinical context of patient data. In addition, data may be omitted in some cases. CLINICAL DECISIONS SHOULD BE BASED ON THE PRIMARY CLINICAL RECORDS. [employer] [facility]. provides no warranty or guarantee of the accuracy or completeness of information in this document.
--- NOTE | 2023-11-01 21:14 | XR_ITS ---
The [address] [address] Patient Name: CAROLINE GRAHAM MRN: [id number] date: 1990 Sex: F Assigned Patient Location: ER Current Patient Location: ER Accession/Order Number: [id number] Exam Date: 11/01/2023 22:14 Report Date: 11/01/2023 23:36 At the request of: JET QUIROZ Procedure: XR ankle RT min 3V EXAM: XR tibia fibula RT 2V, XR foot RT min 3V, XR ankle RT min 3V, XR ankle LT min 3V HISTORY: injury COMPARISON: None. TECHNIQUE: 2 views of the right tibia and fibula, 3 views of the right ankle, and 3 views of the right foot were obtained. 3 views of the left ankle were obtained. FINDINGS: Right tibia and fibula, right ankle, and right foot: No acute fracture or dislocation is seen. There are small plantar and Achilles calcaneal enthesophytes. There is no significant right ankle joint effusion. The ankle mortise is congruent. Left ankle: No acute fracture or dislocation is seen. The ankle mortise is congruent. The joint spaces are preserved. There are tiny plantar calcaneal enthesophytes. There is no significant left ankle joint effusion. XR/XR ankle RT min 3V IMPRESSION: 1. No acute fracture or dislocation of the right tibia or fibula, either ankle, or the right foot is seen. If pain persists, repeat radiographs are recommended in 7-10 days. Electronically authenticated by: Noah FREGOSO Date: 11/01/2023 23:36
--- NOTE | 2023-11-01 21:14 | XR_ITS ---
The [address] [address] Patient Name: CAROLINE GRAHAM MRN: [id number] date: 1990 Sex: F Assigned Patient Location: ER Current Patient Location: ER Accession/Order Number: [id number] Exam Date: 11/01/2023 22:14 Report Date: 11/01/2023 23:36 At the request of: JET QUIROZ Procedure: XR ankle LT min 3V EXAM: XR tibia fibula RT 2V, XR foot RT min 3V, XR ankle RT min 3V, XR ankle LT min 3V HISTORY: injury COMPARISON: None. TECHNIQUE: 2 views of the right tibia and fibula, 3 views of the right ankle, and 3 views of the right foot were obtained. 3 views of the left ankle were obtained. FINDINGS: Right tibia and fibula, right ankle, and right foot: No acute fracture or dislocation is seen. There are small plantar and Achilles calcaneal enthesophytes. There is no significant right ankle joint effusion. The ankle mortise is congruent. Left ankle: No acute fracture or dislocation is seen. The ankle mortise is congruent. The joint spaces are preserved. There are tiny plantar calcaneal enthesophytes. There is no significant left ankle joint effusion. XR/XR ankle LT min 3V IMPRESSION: 1. No acute fracture or dislocation of the right tibia or fibula, either ankle, or the right foot is seen. If pain persists, repeat radiographs are recommended in 7-10 days. Electronically authenticated by: Noah FREGOSO Date: 11/01/2023 23:36
--- NOTE | 2023-11-01 21:14 | XR_ITS ---
The [address] [address] Patient Name: CAROLINE GRAHAM MRN: [id number] date: 1990 Sex: F Assigned Patient Location: ER Current Patient Location: ER Accession/Order Number: [id number] Exam Date: 11/01/2023 22:14 Report Date: 11/01/2023 23:36 At the request of: JET QUIROZ Procedure: XR tibia fibula RT 2V EXAM: XR tibia fibula RT 2V, XR foot RT min 3V, XR ankle RT min 3V, XR ankle LT min 3V HISTORY: injury COMPARISON: None. TECHNIQUE: 2 views of the right tibia and fibula, 3 views of the right ankle, and 3 views of the right foot were obtained. 3 views of the left ankle were obtained. FINDINGS: Right tibia and fibula, right ankle, and right foot: No acute fracture or dislocation is seen. There are small plantar and Achilles calcaneal enthesophytes. There is no significant right ankle joint effusion. The ankle mortise is congruent. Left ankle: No acute fracture or dislocation is seen. The ankle mortise is congruent. The joint spaces are preserved. There are tiny plantar calcaneal enthesophytes. There is no significant left ankle joint effusion. XR/XR tibia fibula RT 2V IMPRESSION: 1. No acute fracture or dislocation of the right tibia or fibula, either ankle, or the right foot is seen. If pain persists, repeat radiographs are recommended in 7-10 days. Electronically authenticated by: Noah FREGOSO Date: 11/01/2023 23:36
--- NOTE | 2023-11-01 21:14 | XR_ITS ---
The [address] [address] Patient Name: CAROLINE GRAHAM MRN: [id number] date: 1990 Sex: F Assigned Patient Location: ER Current Patient Location: ER Accession/Order Number: [id number] Exam Date: 11/01/2023 22:14 Report Date: 11/01/2023 23:36 At the request of: JET QUIROZ Procedure: XR foot RT min 3V EXAM: XR tibia fibula RT 2V, XR foot RT min 3V, XR ankle RT min 3V, XR ankle LT min 3V HISTORY: injury COMPARISON: None. TECHNIQUE: 2 views of the right tibia and fibula, 3 views of the right ankle, and 3 views of the right foot were obtained. 3 views of the left ankle were obtained. FINDINGS: Right tibia and fibula, right ankle, and right foot: No acute fracture or dislocation is seen. There are small plantar and Achilles calcaneal enthesophytes. There is no significant right ankle joint effusion. The ankle mortise is congruent. Left ankle: No acute fracture or dislocation is seen. The ankle mortise is congruent. The joint spaces are preserved. There are tiny plantar calcaneal enthesophytes. There is no significant left ankle joint effusion. XR/XR foot RT min 3V IMPRESSION: 1. No acute fracture or dislocation of the right tibia or fibula, either ankle, or the right foot is seen. If pain persists, repeat radiographs are recommended in 7-10 days. Electronically authenticated by: Noah FREGOSO Date: 11/01/2023 23:36
--- NOTE | 2023-11-01 21:15 | ED.LOWEXI1 ---
HPI HPI - Extremity Injury (Lower) General Chief Complaint: Extremity Injury, Lower Stated Complaint: LE INJURY Time Seen by Provider: 11/01/23 21:11 Source: patient Mode of arrival: walk-in Limitations: no limitations History of Present Illness HPI Narrative: patient presents complaining of bilat ankle pain. Describes mis stepping down one stair into the garage and twisting both ankles and falling. Pain both ankle but worse on the right. Not able to weight bear on the right. Points to right foot, ankle and azevedo as painful. minor scrape left proximal tibia area that she is not concerned about. major complaint is the right ankle pain. Denies other injury Related Data Allergies Allergy/AdvReac Type Severity Reaction Status Date / Time aspirin Allergy Severe Swelling Verified 11/01/23 18:16 of Lip/Tongue/Throat Opioid HPI Opioid Management Most Recent Pain and Opioid Data: Last Pain Scale 8 11/01/23 23:08 Last ED Pain Assessment 11/01/23 23:08 Review of Systems ROS Status of ROS 10 or more systems reviewed and unremarkable except as noted in history and below Exam Constitutional Vital Signs, click to edit/add: Last Vital Signs Temp 98.2 F 11/01/23 18:16 Pulse 104 H 11/01/23 18:16 Resp 20 11/01/23 18:16 BP 152/94 H 11/01/23 18:16 Pulse Ox 94 L 11/01/23 18:16 Common normals: no apparent distress, average body habitus, oriented x3, no limitations, healthy appearing, alert and well nourished [facility] Common normals: normocephalic and head/scalp atraumatic Eye Common normals: PERRL and EOMs intact bilaterally Respiratory Common normals: normal respiratory effort, no retractions, no use of accessory muscles and clear to auscultation bilaterally Cardio Common normals: regular rate, regular rhythm, S1 normal heart sound and S2 normal heart sound GI Common normals: Normal to inspection, nondistended, normoactive bowel sounds present, soft to palpation and non-tender Extremity Other: mild swelling bilat ankle. Mod tenderness right ankle. also tenderness right foot without swelling. Tenderness distal 1/2 right azevedo without tenderness or swelling. Minor scrape proximal left azevedo. nontender. Neuro Common normals: oriented x3, CN's II-XII intact bilaterally, moves all extremities and no focal motor deficits Psych Appearance: grossly normal Course Vital Signs Vital signs: Vital Signs Temperature 98.2 F 11/01/23 18:16 Pulse Rate 104 H 11/01/23 18:16 Respiratory Rate 20 11/01/23 18:16 Blood Pressure 152/94 H 11/01/23 18:16 Pulse Oximetry 94 L 11/01/23 18:16 Temperature 98.2 F 11/01/23 18:16 Pulse Rate 104 H 11/01/23 18:16 Respiratory Rate 20 11/01/23 18:16 Blood Pressure 152/94 H 11/01/23 18:16 Pulse Oximetry 94 L 11/01/23 18:16 MDM - Extremity Injury (Lower) MDM Narrative Medical decision making narrative: patient sprained her right foot and bilat ankles. Not able to weight bear right foot due to pain. mild swelling both ankles. xrays neg for fracture. Air splint and crutches provided and patient discharged home Discharge Plan Discharge Stand Alone Forms: Work/School Release, Portal Instructions Chief Complaint: Extremity Injury, Lower Clinical Impression: Ankle sprain, Foot sprain Patient Disposition: Home, Self-Care Print Language: Occitan Instructions: Ankle Sprain (ED), Crutch Instructions (ED), Foot Sprain (ED) Additional Instructions: follow up with your doctor next week for recheck Referrals: TOM WHYTE [Primary Care Provider] - 1 week
[2023-11-01] MEDS: HYDROCODONE/ACET 5-325 MG TABLET 2 TAB PO (23:07)
[2023-11-02] MEDS: HYDROCODONE/ACET 5-325 MG TABLET 4 TAB PO (00:12)
== END 2023-11-02 00:40 | disposition home or self-care (01) ==
PROVIDERS: Emergency Provider Internal Medicine; PCP Family Medicine
DX: S93.601A Unspecified sprain of right foot, initial encounter (principal); S93.401A Sprain of unspecified ligament of right ankle, initial encounter; S93.402A Sprain of unspecified ligament of left ankle, initial encounter; W10.8XXA Fall (on) (from) other stairs and steps, initial encounter; X50.1XXA Overexertion from prolonged static or awkward postures, initial encounter
CPT/HCPCS: 73590; 73610; 73630; 99285

== ENCOUNTER 2024-05-04 15:30 | Emergency (ER) | payer OTHER, SELFPAY ==
[2024-05-04] VITALS (8 sets, daily range): BP systolic 100–127; BP diastolic 60–82; PULSE 76–112; TEMP 37–37.2; O2SAT 96–100; BMI 42.8
--- NOTE | 2024-05-04 16:42 | ECG_ITS ---
The [facility] Test Date: 2024-05-04 Pat Name: CAROLINE GRAHAM Department: Room: - Gender: Female Typing Secretary: : 1990 Requested By: TOM WHYTE Order Number: [id number] Reading MD: NANCY HA Measurements Intervals [place] Rate: 99 P: 66 NM: 140 QRS: 63 QRSD: 72 T: 11 QT: 330 QTc: 386 Interpretive Statements 1100 Sinus rhythm Non-Specific T wave inversion in III 8102 Low QRS voltage in chest leads 9130 borderline ECG Compared to ECG 09/15/2019 19:16:40 Sinus tachycardia no longer present Electronically Signed On 05-05-2024 10:35:57 EST by NANCY HA
--- NOTE | 2024-05-04 17:14 | ED.GENADUL1 ---
HPI HPI - General Adult General Chief complaint: Chest Pain Stated complaint: HIGH BP, CHEST PAIN Time Seen by Provider: 05/04/24 16:59 Source: patient Mode of arrival: walk-in History of Present Illness HPI narrative: Patient is a 33-year-old female who is presenting to the ER with chief complaint of palpitations that were occurring at work. 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 Patient was working at [employer] in [place] today. Patient felt her blood pressure rising and her heart rate rising. Patient noted heart rate in the 140s on her watch. Patient checked her heart rate on another watch and with a blood pressure machine at work and was noted to be in the 130s and 40s so patient came to the ER. When patient got to the ER she is no longer tachycardic and her blood pressure is slightly elevated. Patient has a sharp pain going from her left upper chest into the left side of her neck above her collarbone. Patient stated she had 1 episode happened like this approximately 10 years ago and was in the ER at [facility]. Patient thinks that she was given a bolus of Cardizem with no drip, and was discharged from ER at that time. 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 Patient has never had a Holter monitor. Patient has no new medications. No control, no recent traveling. Non-smoker. Patient PERC 0. Patient's heart score is 1 for obesity. Patient has no significant stress or anxiety today, no excessive caffeine intake, no illicit drugs including cocaine All systems are negative except as noted/marked. All systems reviewed and otherwise negative. Nurses note and vital signs reviewed and patient is not hypoxic. General: The patient appears well and in no apparent distress. Patient is resting comfortably on cart. Patient is not toxic, lethargic, or listless Skin: Warm, dry, no pallor noted. There is no rash noted. No petechiae, purpura. Head: Normocephalic, atraumatic. See cardiac exam for explanation of cervical motion. Eye: Normal conjunctiva, no drainage, EOMI. PERRL Ears, Nose, Mouth, and Throat: oral mucosa is moist. Nares patent. Mouth without vesicles. Cardiovascular: Regular Rate and Rhythm, no murmur, gallop, rub patient does have reproducible superficial tenderness to palpation to the left upper anterior chest wall, and over the middle. Aspect of her left clavicle. Patient does have a pulling sensation to the left side of her neck when she has flexion extension sidebending of her cervical spine and it is reproducible to the left side of her neck. No carotid bruits bilateral. Respiratory: Patient is in no distress, no accessory muscle use, lungs are clear to auscultation, no wheezing, rales or rhonchi Back: non-tender, no CVA tenderness bilaterally to percussion. No CT LS midline pain GI: Soft, obese, no tenderness to palpation, no masses appreciated. No rebound, guarding, or rigidity noted. No distention Musculoskeletal: Patient has full range of motion of all of the extremities, no motor, sensory, or focal neurological deficits. With flexion extension abduction and significant abduction, patient does have pulling sensation to the left side of her neck and over her clavicle that is similar to the pain that she was having at work today. Neurological: A&O x4, normal speech Psychiatric: Cooperative Related Data Home Medications ?Medication ?Instructions ?Recorded ?Confirmed escitalopram oxalate 5 mg tablet 5 mg PO DAILY 05/04/24 05/04/24 Allergies Allergy/AdvReac Type Severity Reaction Status Date / Time aspirin Allergy Severe Swelling Verified 11/01/23 18:16 of Lip/Tongue/Throat Opioid HPI Opioid Management Most Recent Opioid Data: Last Pain Scale 8 11/01/23 23:08 11/01/23 PFSH PFSH Social History Little interest or pleasure in doing things: not at all Feeling down, depressed, or hopeless: not at all Exam Constitutional Vital Signs, click to edit/add: Last Vital Signs Temp 98.6 F 05/04/24 19:08 Pulse 92 H 05/04/24 19:08 Resp 18 05/04/24 19:08 BP 127/82 05/04/24 19:08 Pulse Ox 97 05/04/24 19:08 O2 Del Method Room Air 05/04/24 15:37 Course Vital Signs Vital signs: Vital Signs Temperature 98.9 F 05/04/24 15:37 Pulse Rate 112 H 05/04/24 15:37 Respiratory Rate 18 05/04/24 15:37 Blood Pressure 110/78 05/04/24 15:37 Pulse Oximetry 98 05/04/24 15:37 Oxygen Delivery Method Room Air 05/04/24 15:37 Temperature 98.6 F 05/04/24 19:08 Pulse Rate 92 H 05/04/24 19:08 Respiratory Rate 18 05/04/24 19:08 Blood Pressure 127/82 05/04/24 19:08 Pulse Oximetry 97 05/04/24 19:08 Oxygen Delivery Method Room Air 05/04/24 15:37 Medical Decision Making MDM Narrative Medical decision making narrative: Patient chest x-ray, lab work shows no acute findings. Patient appears to possibly be having musculoskeletal pain over the left upper chest wall left clavicle and left neck. Patient has no acute findings why she had tachycardia earlier today. It is recommended that patient follow-up with PCP and have Holter monitor. Patient agrees. Patient has heart score of 1, second troponin was not done. Patient walked to x-ray him back and felt better and her pain is resolving to the left upper chest wall. No questions at discharge. Lab Data Labs: Lab Results 05/04/24 Range/Units 17:34 WBC 14.1 H (4.0-11.0) 10^3/uL RBC 4.79 (4.20-5.40) 10^6/uL Hgb 13.0 (12.0-16.0) g/dL Hct 41.0 (36.0-48.0) % MCV 85.6 (81.0-99.0) fL MCH 27.1 (26.7-34.0) pg MCHC 31.7 (29.9-35.2) g/dL RDW 14.0 (11.0-15.0) % Plt Count 334 (150-450) 10^3/uL MPV 10.0 (9.5-13.5) fL Neut % (Auto) 67.9 (43.0-75.0) % Lymph % (Auto) 19.9 L (20.5-60.0) % Ellis % (Auto) 9.3 (1.7-12.0) % Eos % (Auto) 2.3 (0.9-7.0) % Baso % (Auto) 0.4 (0.2-2.0) % Neut # (Auto) 9.6 H (1.4-6.5) 10^3/uL Lymph # (Auto) 2.8 (1.2-3.8) 10^3/uL Ellis # (Auto) 1.3 H (0.3-0.8) 10^3/uL Eos # (Auto) 0.3 (0.0-0.7) 10^3/uL Baso # (Auto) 0.1 (0.0-0.1) 10^3/uL Abs Immat Gran (auto) 0.03 (0.00-0.03) 10^3/uL Imm/Tot Granulo (auto) 0.2 (0.0-0.5) % Sodium 140 (136-145) mmol/L Potassium 3.8 (3.5-5.1) mmol/L Chloride 103 (98-107) mmol/L Carbon Dioxide 32.1 H (21.0-32.0) mmol/L Anion Gap 8.7 BUN 13.0 (7.0-18.0) mg/dL Creatinine 0.78 (0.55-1.02) mg/dL Est GFR ( Amer) >60 (>=60 mL/min/1.73m^2) Est GFR (Non-Af Amer) >60 (>=60 mL/min/1.73m^2) BUN/Creatinine Ratio 16.7 Glucose 99 (74-106) mg/dL Calcium 9.6 (8.5-10.1) mg/dL Troponin I High Sens 7.0 (4.0-51.3) pg/mL TSH & Free T4 Interp 0.747 (0.358-3.740) uIU/mL ECG Data Attestation: I personally reviewed and interpreted this ECG as follows: (EKG interpretation. Normal sinus rhythm at 99 beats a minute. Normal axis deviation. No acute ST elevation, no acute ectopy. QTc of 386) Discharge Plan Discharge Stand Alone Forms: Work/School Release Chief Complaint: Chest Pain Clinical Impression: Chest pain, Palpitations Patient Disposition: Home, Self-Care Time of Disposition Decision: 19:07 Condition: Fair Prescriptions / Home Meds: No Action escitalopram oxalate 5 mg tablet 5 mg PO DAILY Print Language: Icelandic Instructions: Chest Pain (ED), Heart Palpitations (ED), Chest Wall Pain (ED) Additional Instructions: Alternate Tylenol and either Motrin, Advil, or ibuprofen every 4 hours to help with pain. Maximum dose of Tylenol is 3000 mg a day. Maximum dose of either Motrin, Advil, or ibuprofen is 2400 mg a day. Use ice 20 minutes on, 20 minutes off, do not use heat. Follow-up with your PCP, you may need to wear a Holter monitor for 3 to 7 days to capture any type of arrhythmia. Any other acute concerns, please return back to the ER Referrals: TOM WHYTE [Primary Care Provider] - 1 week Discharge Date/Time: 05/04/24 19:16
[2024-05-04 17:38] LABS: Basophils Absolute Auto 0.1 10^3/uL (0.0-0.1); Basophils Percent Auto 0.4 % (0.2-2.0); Eosinophils Absolute Auto 0.3 10^3/uL (0.0-0.7); Eosinophils Percent Auto 2.3 % (0.9-7.0); Immature Granulocytes Abs Auto 0.03 10^3/uL (0.00-0.03); Immature Granulocytes Pct Auto 0.2 % (0.0-0.5); Lymphocytes Absolute Auto 2.8 10^3/uL (1.2-3.8); Lymphocytes Percent Auto 19.9 % (20.5-60.0); Mean Corpuscular HGB Conc 31.7 g/dL (29.9-35.2); Mean Corpuscular Hemoglobin 27.1 pg (26.7-34.0); Mean Corpuscular Volume 85.6 fL (81.0-99.0); Monocytes Absolute Auto 1.3 10^3/uL (0.3-0.8); Monocytes Percent Auto 9.3 % (1.7-12.0); Neutrophils Absolute Auto 9.6 10^3/uL (1.4-6.5); Neutrophils Percent Auto 67.9 % (43.0-75.0); Platelet Count 334 10^3/uL (150-450); Red Blood Count 4.79 10^6/uL (4.20-5.40); White Blood Count 14.1 10^3/uL (4.0-11.0)
[2024-05-04 18:04] LABS: Anion Gap 8.7; BUN Creatinine Ratio 16.7; Calcium 9.6 mg/dL (8.5-10.1); Carbon Dioxide 32.1 mmol/L (21.0-32.0); Chloride 103 mmol/L (98-107); Estimated GFR (African America >60 (>=60 mL/min/1.73m^2); Estimated GFR (Non-African Ame >60 (>=60 mL/min/1.73m^2); Glucose 99 mg/dL (74-106); Potassium 3.8 mmol/L (3.5-5.1); Sodium 140 mmol/L (136-145); TSH W/ REFLEX FT4 0.747 uIU/mL (0.358-3.740)
--- NOTE | 2024-05-04 19:15 | PC.NURSE ---
i gave this patient verbal and written discharge orders and this patient voices yes to understanding these. at time of discharge this patient vics no concerns and shows no signs of distress
== END 2024-05-04 19:16 | disposition home or self-care (01) ==
PROVIDERS: Emergency Provider Emergency Medicine; PCP Family Medicine
DX: R00.2 Palpitations (principal); R07.9 Chest pain, unspecified
CPT/HCPCS: 36415; 71046; 80048; 84443; 84484; 85025; 93005; 99285